=== PATIENT | female | born 1970 | race Caucasian/White ===

== ENCOUNTER → 2017-02-17 | Outpatient (CLI) | payer OTHER ==
[2016-11-19 15:00] VITALS: BP 141/77
--- NOTE | 2017-02-17 13:24 | RAD ---
Bilateral hips, two views each Indication: Bilateral hip pain Comparison: None Technique: There are mild degenerative changes of the hips. No cortical lucency or malalignment is i dentified. Impression: Mild bilateral hip DJD. No evidence for acute skeletal abnormality. Reported By:
--- NOTE | 2017-02-17 13:52 | RAD ---
HISTORY: Low back pain with radiculopathy Study: Five views lumbar spine Comparison: None Findings: Normal alignment of the lumbar spine is maintained. Vertebral body heights are preserved. Multilev el spondylosis with degenerative disc space narrowing is present. There are facet degenerative coyne es noted in the lower lumbar spine without significant listhesis.No evidence for acute fracture or s ubluxation. Surgical clips are noted in the abdomen. IMPRESSION: 1. Multilevel spondylosis and facet arthropathy of the lumbar spine. No acute osseous abnormality. C onsider MRI for further evaluation of radicular symptoms if indicated. Reported By:
== END ==
LOC: RAD 12:37
PROVIDERS: ATTEND Internal Medicine
DX: M54.5 Low back pain (principal); M25.551 Pain in right hip; M25.552 Pain in left hip; M16.11 Unilateral primary osteoarthritis, right hip; M16.12 Unilateral primary osteoarthritis, left hip; M47.896 Other spondylosis, lumbar region
CPT/HCPCS: 72110; 73521

== ENCOUNTER 2017-02-21 14:45 | Emergency (ER) | payer OTHER ==
[2017-02-21 14:57] VITALS: BP 155/86; BMI 33.8
--- NOTE | 2017-02-21 16:26 | ED.ABDFE ---
HPI - Time seen Time seen: 16:20 - PCP Primary Care Physician: ELSI DANG - HPI Comment HPI Comment: 2-3 days of intermittent "catching" upper abd pain which brings her to her knees on occasion; it starts just under the edge of her rib cage and extends into both sides of her upper stomach and resolves spontaneously; unrelated to eating or movement; it has not happened before; she did have a hernia repair in Nov/Dec this year but had done well until now; no n/v/d/rash/ fever/chills. - Complaint Chief Complaint:: PAIN TO UPPER ABD SINCE THIS WEEK. WORSE YESTERDAY AND TODAY. DULL PAIN TO MIDDLE OF PAIN. 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 - Family History History of Family Medical Conditions: Yes Family Medical History: Diabetes Mellitus, Cancer, Hypertension - Social History Type of Tobacco Use: Cigarettes Alcohol Use: None Do you use any recreational Drugs:: No Lives With: Family Lives Where: Home - infectious screening In the last 2 months have you had wt loss of >10#?: NO Have you had fever, night sweats or hemotysis?: No Have you traveled outside the country in the last 6 months?: No Isolation: Standard ROS - Review of Systems Constitutional: No Symptoms Reported Respiratoy: No Symptoms Reported Cardiovascular: No Symptoms Reported Gastrointestinal/Abdominal: See HPI Neurological: No Symptoms Reported Musculoskeletal: No Symptoms Reported Integumentary: No Symptoms Reported Hematologic/Lymphatic: No Symptoms Reported Psychiatric: No Symptoms Reported PE - Vital Signs Vitals: Temperature 98.0 F Pulse Rate 85 Respiratory Rate 16 Blood Pressure [Left Arm] 141/77 Blood Pressure [Standing] 116/69 Blood Pressure [Sitting] 104/62 Blood Pressure [Lying] 116/69 Blood Pressure 155/86 O2 Sat by Pulse Oximetry 100 - General Limitations: No Limitations General Appearance: Alert, In No Apparent Distress - Head Head Exam: Normal Inspection - ENT ENT Exam: Normal Exam - Respiratory Respiratory Exam: Normal Lung Sounds Bilat Respiratory Exam: Bilateral Clear to Auscultation - Cardiovascular Cardiovascular Exam: Regular Rate, Normal Rhythm - Abdominal Exam Abdominal Exam: Normal Inspection, Normal Bowel Sounds, Soft, Tenderness (along edge of lower rib cage bilaterally; no crepitus or rash) - Neurologic Neurological Exam: Alert, Oriented X3 - Skin Skin Exam: Warm - Diagnosis Discharge Problem: Abdominal pain Qualifiers: Abdominal location: epigastric Qualified Code(s): R10.13 - Epigastric pain - Discharge Plan Disposition: HOME, SELF-CARE Condition: Stable - Follow ups/Referrals Follow ups/Referrals: ELSI DANG [Primary Care Provider] - 3 days - Instructions Instructions: Abdominal Pain, Adult
--- NOTE | 2017-02-21 17:11 | RAD ---
Acute abdomen series-three views Indication: Mid epigastric pain for 3 days. Findings: Chest radiograph shows no acute abnormality. There is gas and stool in the colon. There is no free air or pneumatosis. No markedly dilated loop of small bowel identified. 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 cli ps in right abdominal clips noted. No abnormal calcific density seen. Impression: No high-grade obstruction, free air or pneumatosis. Reported By:
== END 2017-02-21 17:30 | disposition home or self-care (01) ==
LOC: ER 14:45
DX: R10.13 Epigastric pain (principal)
CPT/HCPCS: 74022; 99281; 99282

== ENCOUNTER → 2017-03-11 | Outpatient (CLI) | payer OTHER ==
[2017-02-21 14:57] VITALS: BP 155/86
--- NOTE | 2017-03-12 08:43 | MRI ---
HISTORY: Chronic low back pain Study: MRI lumbar spine without contrast Comparison: None Technique: Multiplanar multi-sequence MRI of the lumbar spine was obtained. Sagittal T1, sagittal T 2, and stir weighted images, axial T1, and axial T2 images were obtained. Findings: The lumbar spine demonstrates normal alignment with the expected signal characteristics of the bone marrow. The conus of the cord terminates normally. T12 -- L1: No evidence for compressive disc disease. The neural foramina are patent. The joints are normal. L1 -- L2: No evidence for compressive disc disease. The neural foramina are patent. The joints are n ormal. L2 -- L3: No evidence for compressive disc disease. The neural foramina are patent. The joints are n ormal. L3 -- L4: There is a small not significantly compressive central disc protrusion present. The neural foramina are patent. The joints are normal. L4 -- L5: Mild broad-based disk bulging effaces the thecal sac and contributes to minimal lateral re cess narrowing bilaterally. The joints are normal. L5 -- S1: No evidence for compressive disc disease. The neural foramina are patent. The joints are n ormal. IMPRESSION: As above Reported By:
== END ==
LOC: RAD 14:46
PROVIDERS: ATTEND Internal Medicine
DX: M51.36 Other intervertebral disc degeneration, lumbar region (principal)
CPT/HCPCS: 72148

== ENCOUNTER → 2017-03-18 | Outpatient (CLI) | payer OTHER ==
[2017-02-21 14:57] VITALS: BP 155/86
[2017-03-18 11:28] LABS: BASOPHILS # (AUTO) 0.2 X10^3/uL (0.0-0.1); BASOPHILS % (AUTO) 1.7 % (0.2-1.0); EOSINOPHILS # (AUTO) 0.4 x10^3/uL (0.0-0.2); EOSINOPHILS % (AUTO) 3.7 % (0.9-2.9); HEMATOCRIT 34.3 % (36.0-47.0); HEMOGLOBIN 11.2 g/dL (12.0-16.0); LYMPHOCYTES # (AUTO) 1.9 X10^3/uL (1.3-2.9); LYMPHOCYTES % (AUTO) 19.8 % (21.0-51.0); MEAN CORPUSCULAR HEMOGLOBIN 24.3 pg (27.0-34.0); MEAN CORPUSCULAR HGB CONC 32.6 g/dL (33.0-35.0); MEAN CORPUSCULAR VOLUME 74.7 fL (80.0-100.0); MEAN PLATELET VOLUME 7.7 fL (7.4-11.0); MONOCYTES # (AUTO) 0.6 x10^3/uL (0.3-0.8); MONOCYTES % (AUTO) 6.8 % (0.0-13.0); NEUTROPHILS # (AUTO) 6.5 x10^3/uL (2.2-4.8); PLATELET COUNT 324 X10^3/uL (150.0-450.0); RED BLOOD COUNT 4.59 X10^6/uL (3.5-5.4); RED CELL DISTRIBUTION WIDTH 18.4 % (11.6-16.5); WHITE BLOOD COUNT 9.6 X10^3/uL (3.6-10.0)
[2017-03-18 12:10] LABS: HYPOCHROMASIA SLIGHT; PLATELET MORPHOLOGY COMMENT NORMAL (NORMAL)
[2017-03-18 12:11] LABS: MICROCYTOSIS SLIGHT
[2017-03-18 17:11] LABS: ALANINE AMINOTRANSFERASE 29 Units/L (12-78); ALBUMIN 3.9 g/dL (3.4-5.0); ALKALINE PHOSPHATASE 102 Units/L (46-116); ASPARTATE AMINO TRANSFERASE 27 Units/L (15-37); BLOOD UREA NITROGEN 8 mg/dL (7-18); CALCIUM 9.4 mg/dL (8.5-10.1); CARBON DIOXIDE 26.6 mmol/L (21-32); CHLORIDE 104 mmol/L (98-107); CREATININE 0.76 mg/dL (0.55-1.02); GLUCOSE 98 mg/dL (65-99); SODIUM 141 mmol/L (136-145); TOTAL PROTEIN 7.8 g/dL (6.4-8.2); eGFR BLACK RACES > 60 (>60); eGFR NON BLACK RACES > 60 (>60)
== END ==
LOC: LAB 10:48
PROVIDERS: ATTEND Internal Medicine Medical Oncology
DX: C50.811 Malignant neoplasm of overlapping sites of right female breast (principal); E55.9 Vitamin D deficiency, unspecified
CPT/HCPCS: 36415; 80053; 82306; 85025

== ENCOUNTER → 2017-09-19 | Outpatient (CLI) | payer OTHER ==
[2017-09-19 10:12] LABS: BASOPHILS # (AUTO) 0.1 X10^3/uL (0.0-0.1); BASOPHILS % (AUTO) 1.3 % (0.2-1.0); EOSINOPHILS # (AUTO) 0.5 x10^3/uL (0.0-0.2); HEMATOCRIT 38.1 % (36.0-47.0); HEMOGLOBIN 12.8 g/dL (12.0-16.0); LYMPHOCYTES # (AUTO) 1.9 X10^3/uL (1.3-2.9); LYMPHOCYTES % (AUTO) 21.7 % (21.0-51.0); MEAN CORPUSCULAR HEMOGLOBIN 28.9 pg (27.0-34.0); MEAN CORPUSCULAR HGB CONC 33.6 g/dL (33.0-35.0); MEAN CORPUSCULAR VOLUME 86.1 fL (80.0-100.0); MONOCYTES # (AUTO) 0.6 x10^3/uL (0.3-0.8); MONOCYTES % (AUTO) 6.3 % (0.0-13.0); NEUTROPHILS # (AUTO) 5.6 x10^3/uL (2.2-4.8); NEUTROPHILS % (AUTO) 64.7 % (42.0-75.0); PLATELET COUNT 235 X10^3/uL (150.0-450.0); RED BLOOD COUNT 4.42 X10^6/uL (3.5-5.4); RED CELL DISTRIBUTION WIDTH 14.8 % (11.6-16.5); WHITE BLOOD COUNT 8.7 X10^3/uL (3.6-10.0)
[2017-09-19 10:21] LABS: ALANINE AMINOTRANSFERASE 20 Units/L (12-78); ALBUMIN 3.7 g/dL (3.4-5.0); ALKALINE PHOSPHATASE 104 Units/L (46-116); ASPARTATE AMINO TRANSFERASE 21 Units/L (15-37); BLOOD UREA NITROGEN 9 mg/dL (7-18); CALCIUM 9.6 mg/dL (8.5-10.1); CARBON DIOXIDE 27.2 mmol/L (21-32); CHLORIDE 105 mmol/L (98-107); CREATININE 0.74 mg/dL (0.55-1.02); SODIUM 139 mmol/L (136-145); TOTAL PROTEIN 7.2 g/dL (6.4-8.2); eGFR BLACK RACES > 60 (>60); eGFR NON BLACK RACES > 60 (>60)
== END ==
LOC: LAB 09:48
PROVIDERS: ATTEND Internal Medicine Medical Oncology
DX: C50.511 Malignant neoplasm of lower-outer quadrant of right female breast (principal); E55.9 Vitamin D deficiency, unspecified
CPT/HCPCS: 36415; 80053; 82306; 85025

== ENCOUNTER → 2017-12-01 | Outpatient (CLI) | payer OTHER ==
[2017-12-01 11:34] LABS: BASOPHILS % (AUTO) 0.1 % (0.2-1.0); EOSINOPHILS # (AUTO) 0.5 x10^3/uL (0.0-0.2); EOSINOPHILS % (AUTO) 5.3 % (0.9-2.9); HEMATOCRIT 41.6 % (36.0-47.0); HEMOGLOBIN 13.8 g/dL (12.0-16.0); LYMPHOCYTES # (AUTO) 2.1 X10^3/uL (1.3-2.9); LYMPHOCYTES % (AUTO) 24.3 % (21.0-51.0); MEAN CORPUSCULAR HEMOGLOBIN 27.7 pg (27.0-34.0); MEAN CORPUSCULAR HGB CONC 33.2 g/dL (33.0-35.0); MEAN CORPUSCULAR VOLUME 83.5 fL (80.0-100.0); MEAN PLATELET VOLUME 8.1 fL (7.4-11.0); MONOCYTES # (AUTO) 0.5 x10^3/uL (0.3-0.8); NEUTROPHILS # (AUTO) 5.6 x10^3/uL (2.2-4.8); NEUTROPHILS % (AUTO) 64.3 % (42.0-75.0); PLATELET COUNT 313 X10^3/uL (150.0-450.0); RED BLOOD COUNT 4.97 X10^6/uL (3.5-5.4); RED CELL DISTRIBUTION WIDTH 15.1 % (11.6-16.5); WHITE BLOOD COUNT 8.8 X10^3/uL (3.6-10.0)
[2017-12-01 12:07] LABS: ALANINE AMINOTRANSFERASE 22 Units/L (12-78); ALKALINE PHOSPHATASE 111 Units/L (46-116); ASPARTATE AMINO TRANSFERASE 29 Units/L (15-37); BILIRUBIN,DIRECT < 0.05 mg/dL (0-0.2); BLOOD UREA NITROGEN 10 mg/dL (7-18); CALCIUM 9.4 mg/dL (8.5-10.1); CARBON DIOXIDE 27.5 mmol/L (21-32); CHLORIDE 102 mmol/L (98-107); SODIUM 140 mmol/L (136-145); TOTAL PROTEIN 7.5 g/dL (6.4-8.2); eGFR BLACK RACES > 60 (>60); eGFR NON BLACK RACES > 60 (>60)
== END ==
LOC: LAB 10:53
DX: C50.811 Malignant neoplasm of overlapping sites of right female breast (principal); E55.9 Vitamin D deficiency, unspecified
CPT/HCPCS: 36415; 80048; 80076; 82306; 85025

== ENCOUNTER 2017-12-27 11:47 | Emergency (ER) | payer OTHER ==
[2017-12-27 11:56] VITALS: BP 109/63; BMI 36.6
[2017-12-27] MEDS ORDERED: ZOFRAN INJ 4 MG VIAL IVP ONE (13:24)
[2017-12-27] MEDS ORDERED: NS 1000 ML 1,000 ML IV ONE (13:25)
[2017-12-27] MEDS ORDERED: TORADOL 30 MG VIAL IVP ONE (13:25)
--- NOTE | 2017-12-27 13:28 | ED.ABDFE ---
HPI - Time seen Time seen: 13:25 - PCP Primary Care Physician: ELSI DANG - Complaint Chief Complaint Doctors Comments: Patient is complaining of LLQ pain, nausea with cold sweats for the past three days getting worst today. States the pain is worst when she move her leg or hip or walks. She denies diarrhea, dysuria, hematuria, cold, cough, fever or chills. she denies any recent truama. States she has not been able to keep anything down today and has no appetite. Chief Complaint:: PT C/O LEFT LOWER QUAD PAIN WITH NAUSEA AND COLD SWEATS. PT ALSO C/O LIGHT HEADINESS AND A HEADACHE. - Nurses notes reviewed Nurses Notes Review: Yes - Source History Provided: Patient - Mode of arrival Mode of Arrival: Ambulatory - Timing Onset of Chief Complaint: 01/01/18 Came on: Gradually - Duration Duration: Constant How lon Duration: Days - Location Location: LLQ, Suprapubic - Severity Severity: Moderate - Quality Quality: Aching, Cramping, Sharp - Context Onset: Suddenly, On Exertion, At Rest History of: None - Modifying Worsening Factors: Exertion, Position, Movement Improving Factors: Nothing - Associated signs and symptoms Associated Signs and Symptoms: Nausea, Vomiting PMH - PMH Past Medical History: Yes Past Medical History: PUD Past Medical History Comment: BREAST CA Past Surgical History: Yes Surgical History: 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, 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, 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, 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 - Family History History of Family Medical Conditions: Yes Family Medical History: Diabetes Mellitus, Cancer, Hypertension - Social History Type of Tobacco Use: Cigarettes Alcohol Use: None Do you use any recreational Drugs:: No Lives With: Family Lives Where: Home - infectious screening In the last 2 months have you had wt loss of >10#?: NO Have you had fever, night sweats or hemotysis?: No Have you traveled outside the country in the last 6 months?: No Isolation: Standard ROS - Review of Systems Constitutional: No Symptoms Reported, Fever, Weakness, Loss of Appetite Eyes: No Symptoms Reported. negative: See HPI, Eye Pain, Blurred Vision, Tearing, Discharge, Photophobia, Diplopia, Other ENTM: No Symptoms Reported Respiratoy: No Symptoms Reported Cardiovascular: No Symptoms Reported Gastrointestinal/Abdominal: No Symptoms Reported, Abdominal Pain, Nausea, Vomiting Genitourinary: No Symptoms Reported. negative: See HPI, Discharge, Dysuria, Frequency, Hematuria, Pain, Bleeding, Other Neurological: No Symptoms Reported Musculoskeletal: No Symptoms Reported Integumentary: No Symptoms Reported Hematologic/Lymphatic: No Symptoms Reported Endocrine: No Symptoms Reported Psychiatric: No Symptoms Reported PE - Vital Signs Vitals: Temperature 97.0 F Pulse Rate 92 Respiratory Rate 20 Blood Pressure [Left Arm] 141/77 Blood Pressure [Standing] 116/69 Blood Pressure [Sitting] 104/62 Blood Pressure [Lying] 116/69 Blood Pressure 109/63 O2 Sat by Pulse Oximetry 98 - General Limitations: No Limitations General Appearance: Alert, In Distress (moderate) - Head Head Exam: Normal Inspection, Atraumatic, Normocephalic - Eyes Eye exam: Normal Appearance, PERRL, EOMI. negative: Scleral Icterus, Conjunctival Injection, Nystagmus, Miosis, Mydrasis, Periorbital Swelling, Periorbital Tenderness, Other - ENT ENT Exam: Normal Exam, Normal Oropharynx, Normal External Ear Exam, Mucous Membranes Moist, TM's Normal Bilaterally - Neck Neck Exam: Normal Inspection, Full ROM, Trachea Midline - Chest Chest Inspection: Normal Inspection, Symmetric Chest Wall Rise - Respiratory Respiratory Exam: Normal Lung Sounds Bilat Respiratory Exam: Bilateral Clear to Auscultation - Cardiovascular Cardiovascular Exam: Regular Rate, Normal Rhythm, Normal Heart Sounds - Abdominal Exam Abdominal Exam: Normal Inspection, Normal Bowel Sounds, Soft, Tenderness (LLQ, suprapubic tenderness), Guarding, Dimnished Bowel Sounds Abdominal Tenderness: LLQ, Suprapubic, Moderate - Rectal Rectal Exam: Deferred - Back Back Exam: Normal Inspection, Full ROM. negative: Tenderness, (R) CVA Tenderness, (L) CVA Tenderness, Muscle Spasm, Paraspinal Tenderness, Vertebral Tenderness, Rashes, (R) Sciatic Notch Tenderness, (L) Sciatic Notch Tendern, (R ) Straight Leg Raise, (L) Straight Leg Raise, Other - Extremeties Extremities Exam: Normal Inspection, Full ROM, Normal Capillary Refill. negative: Tenderness, Edema, Joint Swelling, Calf Tenderness, Other - External Exam: Female: Deferred : Speculum Exam (Female): Deferred : Bimanual Exam (female): Deferred - Neurologic Neurological Exam: Alert, Oriented X3, CN II-XII Intact, Reflexes Normal. negative: Normal Gait (gait not tested) - Psychiatric Psychiatric Exam: Normal Affect, Normal Mood - Skin Skin Exam: Warm, Dry, Intact, Normal Color ROR - Labs Reviewed Laboratory Results Reviewed?: Yes (all labs and x-ray results reviewed and discussed with patient) Result Diagrams: 12/27/17 13:35 12/27/17 13:35 Laboratory: WBC 11.4 X10^3/uL (3.6-10.0) H 12/27/17 13:35 RBC 4.31 X10^6/uL (3.5-5.4) 12/27/17 13:35 Hgb 11.8 g/dL (12.0-16.0) L 12/27/17 13:35 Hct 35.0 % (36.0-47.0) L 12/27/17 13:35 MCV 81.2 fL (80.0-100.0) 12/27/17 13:35 MCH 27.3 pg (27.0-34.0) 12/27/17 13:35 MCHC 33.6 g/dL (33.0-35.0) 12/27/17 13:35 RDW 15.0 % (11.6-16.5) 12/27/17 13:35 Plt Count 289 X10^3/uL (150.0-450.0) 12/27/17 13:35 MPV 7.9 fL (7.4-11.0) 12/27/17 13:35 Neut % 73.7 % (42.0-75.0) 12/27/17 13:35 Lymph % 16.3 % (21.0-51.0) L 12/27/17 13:35 [place] % 6.3 % (0.0-13.0) 12/27/17 13:35 Eos % 2.4 % (0.9-2.9) 12/27/17 13:35 Baso % 1.3 % (0.2-1.0) H 12/27/17 13:35 Neut # 8.4 x10^3/uL (2.2-4.8) H 12/27/17 13:35 Lymph # 1.9 X10^3/uL (1.3-2.9) 12/27/17 13:35 [place] # 0.7 x10^3/uL (0.3-0.8) 12/27/17 13:35 Eos # 0.3 x10^3/uL (0.0-0.2) H 12/27/17 13:35 Baso # 0.1 X10^3/uL (0.0-0.1) 12/27/17 13:35 Absolute Nucleated RBC 0.0 /100WBC 12/27/17 13:35 Sodium 138 mmol/L (136-145) 12/27/17 13:35 Corrected Sodium TNP 12/27/17 13:35 Potassium 3.5 mmol/L (3.5-5.1) 12/27/17 13:35 Chloride 102 mmol/L (98-107) 12/27/17 13:35 Carbon Dioxide 27.6 mmol/L (21-32) 12/27/17 13:35 BUN 11 mg/dL (7-18) 12/27/17 13:35 Creatinine 0.81 mg/dL (0.55-1.02) 12/27/17 13:35 Est GFR (MDRD) Af Amer > 60 (>60) 12/27/17 13:35 Est GFR (MDRD) Non-Af > 60 (>60) 12/27/17 13:35 Glucose 105 mg/dL (65-99) H 12/27/17 13:35 Calcium 9.1 mg/dL (8.5-10.1) 12/27/17 13:35 Corrected Calcium TNP 12/27/17 13:35 Total Bilirubin 0.20 mg/dL (0.2-1.0) 12/27/17 13:35 AST 16 Units/L (15-37) 12/27/17 13:35 ALT 18 Units/L (12-78) 12/27/17 13:35 Alkaline Phosphatase 96 Units/L (46-116) 12/27/17 13:35 Total Protein 7.4 g/dL (6.4-8.2) 12/27/17 13:35 Albumin 3.4 g/dL (3.4-5.0) 12/27/17 13:35 Globulin 4.0 g/dL (2.5-4.5) 12/27/17 13:35 Albumin/Globulin Ratio 0.9 Ratio (1.1-2.1) L 12/27/17 13:35 Amylase 17 Units/L (25-115) L 12/27/17 13:35 Lipase 119 Units/L (73-393) 12/27/17 13:35 Specimen Type Clean catch urine 12/27/17 15:21 Urine Color Yellow (YELLOW) 12/27/17 15:21 Urine Appearance Clear (CLEAR) 12/27/17 15:21 Urine pH 7.0 (5.0 - 8.0) 12/27/17 15:21 Ur Specific [place] 1.005 (1.000-1.030) 12/27/17 15:21 Urine Protein Negative (NEGATIVE) 12/27/17 15:21 Urine Glucose (UA) Negative (NEGATIVE) 12/27/17 15:21 Urine Ketones Negative (NEGATIVE) 12/27/17 15:21 Urine Occult Blood Negative (NEGATIVE) 12/27/17 15:21 Urine Nitrite Negative (NEGATIVE) 12/27/17 15:21 Urine Bilirubin Negative (NEGATIVE) 12/27/17 15:21 Urine Urobilinogen Normal (NORMAL) 12/27/17 15:21 Ur Leukocyte Esterase Negative (NEGATIVE) 12/27/17 15:21 Urine RBC 0 /HPF (NEGATIVE) 12/27/17 15:21 Urine WBC 0 /HPF (NEGATIVE) 12/27/17 15:21 Ur Squamous Epith Cells Negative /HPF (NEGATIVE) 12/27/17 15:21 Urine Bacteria Negative /HPF (NEGATIVE) 12/27/17 15:21 Ur Culture Indicated? No/not indicated 12/27/17 15:21 - XRAY XRAY Interpreted by: Radiologist (CT abdomen: Uncomplicated acute sigmoid diverticulitis) - Diagnosis Discharge Problem: Diverticulitis, Diverticulosis of colon - Discharge Plan Disposition: 01 HOME, SELF-CARE Condition: Stable Prescriptions: Ciprofloxacin HCl [CIPRO 500 MG TAB *] 500 mg PO Q12H #20 tab Metronidazole [Flagyl Tab 500 mg] 500 mg PO QID PRN #40 tab PRN Reason: Ondansetron [Zofran Odt] 4 mg PO Q8H PRN #12 tab PRN Reason: Nausea/Vomiting - Follow ups/Referrals Follow ups/Referrals: ELSI DANG [Primary Care Provider] - 3 days - Instructions Instructions: Diverticulitis, [id number], Diverticulosis
[2017-12-27] MEDS ORDERED: NS 1000 ML 1,000 ML ONE (13:29)
[2017-12-27] MEDS ORDERED: ZOFRAN INJ 4 MG VIAL ONE (13:29)
[2017-12-27] MEDS ORDERED: TORADOL 30 MG VIAL ONE (13:30)
[2017-12-27 13:47] LABS: BASOPHILS # (AUTO) 0.1 X10^3/uL (0.0-0.1); BASOPHILS % (AUTO) 1.3 % (0.2-1.0); EOSINOPHILS # (AUTO) 0.3 x10^3/uL (0.0-0.2); EOSINOPHILS % (AUTO) 2.4 % (0.9-2.9); HEMOGLOBIN 11.8 g/dL (12.0-16.0); LYMPHOCYTES # (AUTO) 1.9 X10^3/uL (1.3-2.9); LYMPHOCYTES % (AUTO) 16.3 % (21.0-51.0); MEAN CORPUSCULAR HEMOGLOBIN 27.3 pg (27.0-34.0); MEAN CORPUSCULAR HGB CONC 33.6 g/dL (33.0-35.0); MEAN CORPUSCULAR VOLUME 81.2 fL (80.0-100.0); MEAN PLATELET VOLUME 7.9 fL (7.4-11.0); MONOCYTES # (AUTO) 0.7 x10^3/uL (0.3-0.8); MONOCYTES % (AUTO) 6.3 % (0.0-13.0); NEUTROPHILS # (AUTO) 8.4 x10^3/uL (2.2-4.8); NEUTROPHILS % (AUTO) 73.7 % (42.0-75.0); PLATELET COUNT 289 X10^3/uL (150.0-450.0); RED BLOOD COUNT 4.31 X10^6/uL (3.5-5.4); WHITE BLOOD COUNT 11.4 X10^3/uL (3.6-10.0)
[2017-12-27 14:04] LABS: ALANINE AMINOTRANSFERASE 18 Units/L (12-78); ALBUMIN 3.4 g/dL (3.4-5.0); ALKALINE PHOSPHATASE 96 Units/L (46-116); AMYLASE 17 Units/L (25-115); ASPARTATE AMINO TRANSFERASE 16 Units/L (15-37); BLOOD UREA NITROGEN 11 mg/dL (7-18); CALCIUM 9.1 mg/dL (8.5-10.1); CARBON DIOXIDE 27.6 mmol/L (21-32); CHLORIDE 102 mmol/L (98-107); CREATININE 0.81 mg/dL (0.55-1.02); LIPASE 119 Units/L (73-393); SODIUM 138 mmol/L (136-145); TOTAL PROTEIN 7.4 g/dL (6.4-8.2); eGFR BLACK RACES > 60 (>60); eGFR NON BLACK RACES > 60 (>60)
--- NOTE | 2017-12-27 14:17 | CT ---
HISTORY: Left lower quadrant abdominal pain with nausea and cold sweats. Study: CT abdomen and pelvis without contrast. Comparison: 12/31/2016. Technique: Multiple axial images of the abdomen and pelvis were obtained from the lung bases to the p ubic symphysis without the administration of IV contrast. Findings: The included portions of the lung bases are clear. The gallbladder is surgically absent. Th e liver, pancreas, spleen, adrenal glands and kidneys are unremarkable in their CT appearance. There are no calcified stones along the course of either ureter or within the lumen of the well distended u rinary bladder. The appendix is surgically absent. There is sigmoid diverticulosis with scattered div erticula noted throughout the colon. There is focal wall thickening and pericolonic stranding of the sigmoid colon compatible with acute uncomplicated diverticulitis. There is no organized or drainable fluid collection. There is no gross intraperitoneal free air. Are postsurgical changes in the region of the rectum. There is no small bowel dilatation. Prior anterior abdominal wall hernia repair is not ed with mesh material in place. The uterus is present. There is atherosclerotic disease of the nonane urysmal abdominal aorta. The bony structures are grossly unremarkable. IMPRESSION: Uncomplicated acute sigmoid diverticulitis. Reported By:
[2017-12-27 15:32] LABS: BILIRUBIN,URINE NEGATIVE (NEGATIVE); BLOOD/HEMOGLOBIN,URINE NEGATIVE (NEGATIVE); GLUCOSE, URINE NEGATIVE (NEGATIVE); KETONES,URINE NEGATIVE (NEGATIVE); LEUKOCYTE ESTERASE ,URINE NEGATIVE (NEGATIVE); NITRITES,URINE NEGATIVE (NEGATIVE); PROTEIN,URINE NEGATIVE (NEGATIVE); UROBILINOGEN,URINE NORMAL (NORMAL)
[2017-12-27 15:36] LABS: APPEARANCE,URINE CLEAR (CLEAR); BACTERIA,URINE NEGATIVE /HPF (NEGATIVE); COLOR,URINE YELLOW (YELLOW); RBC,URINE 0 /HPF (NEGATIVE); SQUAMOUS EPITHELIAL CELL,UR NEGATIVE /HPF (NEGATIVE)
[2017-12-27] MEDS ORDERED: LEVAQUIN PREMIX IV 500 MG 500 MG/100 ML BAG IV ONE ×2 (16:03→16:38)
== END 2017-12-27 18:00 | disposition home or self-care (01) ==
LOC: ER 11:59
DX: K57.92 Diverticulitis of intestine, part unspecified, without perforation or abscess without bleeding (principal); K57.30 Diverticulosis of large intestine without perforation or abscess without bleeding
CPT/HCPCS: 36415; 74176; 80053; 81001; 82150; 83690; 85025; 96365; 96374; 96375; 99282; 99283; A4216; A4222; J1885; J1956; J2405

== ENCOUNTER 2018-01-24 08:17 | Emergency (ER) | payer OTHER ==
[2018-01-24 08:22] VITALS: BP 131/73; BMI 36.6
[2018-01-24] MEDS ORDERED: TORADOL 60 MG VIAL IM ONE (08:52)
[2018-01-24 08:53] LABS: BILIRUBIN,URINE NEGATIVE (NEGATIVE); BLOOD/HEMOGLOBIN,URINE 1+ (NEGATIVE); GLUCOSE, URINE NEGATIVE (NEGATIVE); KETONES,URINE NEGATIVE (NEGATIVE); LEUKOCYTE ESTERASE ,URINE 1+ (NEGATIVE); NITRITES,URINE NEGATIVE (NEGATIVE); PROTEIN,URINE NEGATIVE (NEGATIVE); UROBILINOGEN,URINE NORMAL (NORMAL)
--- NOTE | 2018-01-24 08:56 | DR.GENAD ---
HPI - PCP Primary Care Physician: ELSI DANG - Complaint/Symptoms Chief Complaint Doctors Comments: Patient states she has a history of diverticulitis and thinks it has flared up on her. States she took her last dose of Cipro and Flagyl today. States she has been hurting for about a week and went to see her doctor and she scheduled her for a scan but she did not get the request and never had the scan done. States she has been having dysuria for the past three days but denies hematuria, diarrhea or eliecer. States the pain is 9 of 10 and is worst when she urinates or moves. she denies any recent trauma. States she hs been nauseated but no vomiting. Chief Complaint:: PATIENT STATED THAT SHE HAS BEEN HAVING ABD. PAIN SINCE AROUND 2-3 DAYS AGO. SHE STATED THAT SHE HAS BEEN ON ANTIBOTICS. - Nurses notes reviewed Nurses Notes Review: Yes - Source History Provided: Patient - Mode of Arrival Mode of Arrival: Ambulatory - Timing Onset of Chief Complaint: 01/21/18 Came on: Gradually - Duration Duration: Intermittent How lon Duration: Days - Location Location: lower abdominal pain - Severity Severity: Moderate - Modifying Factors Worsens:: movement and urination Improves:: nothing PMH - PMH Past Medical History: Yes Past Medical History: PUD Past Surgical History: Yes Surgical History: 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, 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, RELINER Surgery, 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 - Family History History of Family Medical Conditions: Yes Family Medical History: Diabetes Mellitus, Cancer, Hypertension - Social History Does patient currently use any type of tobacco product: Yes Have you used tobacco products in the last 12 months: Yes Type of Tobacco Use: Cigarettes Does any household member use tobacco: Yes Alcohol Use: None Do you use any recreational Drugs:: No Lives With: Family Lives Where: Home - infectious screening In the last 2 months have you had wt loss of >10#?: NO Have you had fever, night sweats or hemotysis?: No Have you traveled outside the country in the last 6 months?: No Isolation: Standard ROS - Review of Systems Constitutional: No Symptoms Reported. negative: See HPI, Chills, Diaphoresis, Fever, Malaise, Weakness, Irritable, Fatigue, Loss of Appetite, Other Eyes: No Symptoms Reported ENTM: No Symptoms Reported Respiratoy: No Symptoms Reported. negative: See HPI, Productive Cough, Non- Productive Cough, Moist Cough, Dry Cough, Hacking Cough, Barking Cough, Brassy Cough, Orthopnea, Short of Breath, Stridor, Wheezing, Hemoptysis, Other Cardiovascular: No Symptoms Reported. negative: See HPI, Chest Pain, Edema, Palpitations, Syncope, Cyanosis, Skin Mottling, Other Gastrointestinal/Abdominal: No Symptoms Reported, Abdominal Pain, Nausea. negative: See HPI, Constipation, Diarrhea, Vomiting, Food Intolerance, Other Genitourinary: No Symptoms Reported, Dysuria. negative: See HPI, Discharge, Frequency, Hematuria, Pain, Bleeding, Other Neurological: No Symptoms Reported. negative: See HPI, Anxiety, Depressed, Emotional Problems, Headache, Numbness, Paresthesia, Pre-existing Deficit, Seizure, Tingling, Tremors, Weakness, Dizziness, Problems Walking, Speech Problem, Other Musculoskeletal: No Symptoms Reported Integumentary: No Symptoms Reported. negative: See HPI, Change in Color, Change in Hair/Nails, Dryness, Lesions, Lumps, Rash, Itching, Wound, Bruises, Juandice, Other Hematologic/Lymphatic: No Symptoms Reported. negative: See HPI, Anemia, Blood Clots, Easy Bleeding, Easy Bruising, Swollen Glands, Lymphadenopathy, Other Endocrine: No Symptoms Reported Psychiatric: No Symptoms Reported. negative: See HPI, Anxiety, Depression, Hallucinations, Excessive crying, Suicidal, Other PE - Vital Signs Vitals: Temperature 98.3 F Pulse Rate 92 Respiratory Rate 20 Blood Pressure [Left Arm] 141/77 Blood Pressure [Standing] 116/69 Blood Pressure [Sitting] 104/62 Blood Pressure [Lying] 116/69 Blood Pressure 131/73 O2 Sat by Pulse Oximetry 100 - General Limitations: No Limitations General Appearance: Alert, In Distress (moderate) - Head Head Exam: Normal Inspection, Atraumatic, Normocephalic - Eyes Eye exam: Normal Appearance, PERRL, EOMI. negative: Scleral Icterus, Conjunctival Injection, Nystagmus, Miosis, Mydrasis, Periorbital Swelling, Periorbital Tenderness, Other - ENT ENT Exam: Normal Exam, Normal Oropharynx, Normal External Ear Exam, Mucous Membranes Moist, TM's Normal Bilaterally External Ear Exam: Normal External Inspection TM/Canal Exam: Bilateral Normal Nose Exam: Normal Nose Exam Mouth Exam: Normal Inspection. negative: Drooling, Trismus, Lip Swelling, Tongue Elevation, Tongue Swelling, Laceration, Other Throat Exam: Normal Inspection. negative: Tonsillar Erythema, Tonsillomegaly, Tonsillar Exudate, R Peritonsillar Mass, L Peritonsillar Mass, Muffled Voice, Other - Neck Neck Exam: Normal Inspection, Full ROM, Trachea Midline. negative: Tenderness, Meningismus, Lymphadenopathy, Thyromegaly, Other - Chest Chest Inspection: Normal Inspection, Symmetric Chest Wall Rise. negative: Tenderness, Rash, Abscess, Other - Respiratory Respiratory Exam: Normal Lung Sounds Bilat Respiratory Exam: Bilateral Clear to Auscultation - Cardiovascular Cardiovascular Exam: Regular Rate, Normal Rhythm, Normal Heart Sounds - Abdominal Exam Abdominal Exam: Normal Inspection, Normal Bowel Sounds, Soft, Tenderness ( suprapubic and LLQ tendernesswith guarding), Guarding, Dimnished Bowel Sounds Abdominal Tenderness: LLQ, Suprapubic, Moderate - Extremities Extremities Exam: Normal Inspection, Full ROM, Normal Capillary Refill. negative: Tenderness, Edema, Joint Swelling, Calf Tenderness, Other - Back Back Exam: Normal Inspection, Full ROM. negative: Tenderness, (R) CVA Tenderness, (L) CVA Tenderness, Muscle Spasm, Paraspinal Tenderness, Vertebral Tenderness, Rashes, (R) Sciatic Notch Tenderness, (L) Sciatic Notch Tendern, (R ) Straight Leg Raise, (L) Straight Leg Raise, Other - Neurologic Neurological Exam: Alert, Oriented X3, CN II-XII Intact, Normal Gait, Reflexes Normal - Psychiatric Psychiatric Exam: Normal Affect, Normal Mood - Skin Skin Exam: Warm, Dry, Intact, Normal Color. negative: Rash, Cyanosis, Diaphoresis, Erythema, Pallor, Mottled, Other ROR - Labs Reviewed Laboratory Results Reviewed?: Yes (All labs and x-ray results reviewed and discussed with patient) Result Diagrams: 01/24/18 09:00 01/24/18 09:00 Laboratory: WBC 10.5 X10^3/uL (3.6-10.0) H 01/24/18 09:00 RBC 4.67 X10^6/uL (3.5-5.4) 01/24/18 09:00 Hgb 12.5 g/dL (12.0-16.0) 01/24/18 09:00 Hct 37.3 % (36.0-47.0) 01/24/18 09:00 MCV 79.9 fL (80.0-100.0) L 01/24/18 09:00 MCH 26.7 pg (27.0-34.0) L 01/24/18 09:00 MCHC 33.4 g/dL (33.0-35.0) 01/24/18 09:00 RDW 15.5 % (11.6-16.5) 01/24/18 09:00 Plt Count 302 X10^3/uL (150.0-450.0) 01/24/18 09:00 MPV 7.8 fL (7.4-11.0) 01/24/18 09:00 Neut % 68.8 % (42.0-75.0) 01/24/18 09:00 Lymph % 18.0 % (21.0-51.0) L 01/24/18 09:00 Quay % 7.1 % (0.0-13.0) 01/24/18 09:00 Eos % 4.4 % (0.9-2.9) H 01/24/18 09:00 Baso % 1.7 % (0.2-1.0) H 01/24/18 09:00 Neut # 7.2 x10^3/uL (2.2-4.8) H 01/24/18 09:00 Lymph # 1.9 X10^3/uL (1.3-2.9) 01/24/18 09:00 Quay # 0.7 x10^3/uL (0.3-0.8) 01/24/18 09:00 Eos # 0.5 x10^3/uL (0.0-0.2) H 01/24/18 09:00 Baso # 0.2 X10^3/uL (0.0-0.1) H 01/24/18 09:00 Absolute Nucleated RBC 0.0 /100WBC 01/24/18 09:00 Sodium 141 mmol/L (136-145) 01/24/18 09:00 Corrected Sodium TNP 01/24/18 09:00 Potassium 4.0 mmol/L (3.5-5.1) 01/24/18 09:00 Chloride 104 mmol/L (98-107) 01/24/18 09:00 Carbon Dioxide 28.2 mmol/L (21-32) 01/24/18 09:00 BUN 7 mg/dL (7-18) 01/24/18 09:00 Creatinine 0.85 mg/dL (0.55-1.02) 01/24/18 09:00 Est GFR (MDRD) Af Amer > 60 (>60) 01/24/18 09:00 Est GFR (MDRD) Non-Af > 60 (>60) 01/24/18 09:00 Glucose 93 mg/dL (65-99) 01/24/18 09:00 Calcium 8.6 mg/dL (8.5-10.1) 01/24/18 09:00 Corrected Calcium TNP 01/24/18 09:00 Total Bilirubin 0.20 mg/dL (0.2-1.0) 01/24/18 09:00 AST 16 Units/L (15-37) 01/24/18 09:00 ALT 17 Units/L (12-78) 01/24/18 09:00 Alkaline Phosphatase 111 Units/L (46-116) 01/24/18 09:00 Total Protein 7.5 g/dL (6.4-8.2) 01/24/18 09:00 Albumin 3.7 g/dL (3.4-5.0) 01/24/18 09:00 Globulin 3.8 g/dL (2.5-4.5) 01/24/18 09:00 Albumin/Globulin Ratio 1.0 Ratio (1.1-2.1) L 01/24/18 09:00 Amylase 18 Units/L (25-115) L 01/24/18 09:00 Lipase 106 Units/L (73-393) 01/24/18 09:00 Specimen Type Clean catch urine 01/24/18 08:39 Urine Color Yellow (YELLOW) 01/24/18 08:39 Urine Appearance Clear (CLEAR) 01/24/18 08:39 Urine pH 6.0 (5.0 - 8.0) 01/24/18 08:39 Ur Specific [place] 1.010 (1.000-1.030) 01/24/18 08:39 Urine Protein Negative (NEGATIVE) 01/24/18 08:39 Urine Glucose (UA) Negative (NEGATIVE) 01/24/18 08:39 Urine Ketones Negative (NEGATIVE) 01/24/18 08:39 Urine Occult Blood 1+ (NEGATIVE) 01/24/18 08:39 Urine Nitrite Negative (NEGATIVE) 01/24/18 08:39 Urine Bilirubin Negative (NEGATIVE) 01/24/18 08:39 Urine Urobilinogen Normal (NORMAL) 01/24/18 08:39 Ur Leukocyte Esterase 1+ (NEGATIVE) 01/24/18 08:39 Urine RBC Rare /HPF (NONE SEEN) 01/24/18 08:39 Urine WBC Rare /HPF (NONE SEEN) 01/24/18 08:39 Ur Squamous Epith Cells Moderate /HPF (NEGATIVE) 01/24/18 08:39 Amorphous Sediment Trace /HPF (NEGATIVE) 01/24/18 08:39 Urine Bacteria Trace /HPF (NEGATIVE) 01/24/18 08:39 Ur Culture Indicated? No/not indicated 01/24/18 08:39 - XRAY XRAY Interpreted by: Radiologist (CT abdomen and pelvis: Mild diverticulitis along the proximal and mid sigmoid colon less prominent from prior study.) - Diagnosis Discharge Problem: Diverticulitis of colon Abdominal pain Qualifiers: Abdominal location: left upper quadrant Qualified Code(s): R10.12 - Left upper quadrant pain - Discharge Plan Disposition: 01 HOME, SELF-CARE Condition: Stable Prescriptions: Ciprofloxacin HCl [CIPRO 500 MG TAB *] 500 mg PO Q12H #20 tab Ibuprofen [MOTRIN TAB 800 MG *] 800 mg PO BID PRN #40 tab PRN Reason: Pain/Inflammation Metronidazole [Flagyl Tab 500 mg] 500 mg PO QID PRN #1 tab PRN Reason: - Follow ups/Referrals Follow ups/Referrals: ELSI DANG [Primary Care Provider] - 3 days - Instructions Instructions: Diverticulitis, [id number], Low-Fiber Diet
[2018-01-24 08:57] LABS: APPEARANCE,URINE CLEAR (CLEAR); COLOR,URINE YELLOW (YELLOW)
[2018-01-24] MEDS ORDERED: TORADOL 60 MG VIAL ONE (08:57)
[2018-01-24 09:02] LABS: AMORPHOUS SEDIMENT,UR TRACE /HPF (NEGATIVE); BACTERIA,URINE TRACE /HPF (NEGATIVE); RBC,URINE RARE /HPF (NONE SEEN); SQUAMOUS EPITHELIAL CELL,UR MODERATE /HPF (NEGATIVE)
[2018-01-24 09:08] LABS: BASOPHILS # (AUTO) 0.2 X10^3/uL (0.0-0.1); BASOPHILS % (AUTO) 1.7 % (0.2-1.0); EOSINOPHILS # (AUTO) 0.5 x10^3/uL (0.0-0.2); EOSINOPHILS % (AUTO) 4.4 % (0.9-2.9); HEMATOCRIT 37.3 % (36.0-47.0); HEMOGLOBIN 12.5 g/dL (12.0-16.0); LYMPHOCYTES # (AUTO) 1.9 X10^3/uL (1.3-2.9); MEAN CORPUSCULAR HEMOGLOBIN 26.7 pg (27.0-34.0); MEAN CORPUSCULAR HGB CONC 33.4 g/dL (33.0-35.0); MEAN CORPUSCULAR VOLUME 79.9 fL (80.0-100.0); MEAN PLATELET VOLUME 7.8 fL (7.4-11.0); MONOCYTES # (AUTO) 0.7 x10^3/uL (0.3-0.8); MONOCYTES % (AUTO) 7.1 % (0.0-13.0); NEUTROPHILS # (AUTO) 7.2 x10^3/uL (2.2-4.8); NEUTROPHILS % (AUTO) 68.8 % (42.0-75.0); PLATELET COUNT 302 X10^3/uL (150.0-450.0); RED BLOOD COUNT 4.67 X10^6/uL (3.5-5.4); RED CELL DISTRIBUTION WIDTH 15.5 % (11.6-16.5); WHITE BLOOD COUNT 10.5 X10^3/uL (3.6-10.0)
[2018-01-24 09:19] LABS: ALANINE AMINOTRANSFERASE 17 Units/L (12-78); ALBUMIN 3.7 g/dL (3.4-5.0); ALKALINE PHOSPHATASE 111 Units/L (46-116); AMYLASE 18 Units/L (25-115); ASPARTATE AMINO TRANSFERASE 16 Units/L (15-37); BLOOD UREA NITROGEN 7 mg/dL (7-18); CALCIUM 8.6 mg/dL (8.5-10.1); CARBON DIOXIDE 28.2 mmol/L (21-32); CHLORIDE 104 mmol/L (98-107); CREATININE 0.85 mg/dL (0.55-1.02); LIPASE 106 Units/L (73-393); SODIUM 141 mmol/L (136-145); TOTAL PROTEIN 7.5 g/dL (6.4-8.2); eGFR BLACK RACES > 60 (>60); eGFR NON BLACK RACES > 60 (>60)
--- NOTE | 2018-01-24 10:09 | CT ---
Indication: Pain Exam: CT abdomen and pelvis without contrast. Technique: Axial spiral images were obtained from lung bases through the pubic symphysis without cont rast. Automated dose control was utilized. Comparison: 12/27/2017 Findings: The lung bases are clear. There is mild hypertrophy of the caudate and left lobes of the li danielle. The gallbladder has been removed with clips in the gallbladder fossa. The bile ducts, pancreas, and spleen are unremarkable. The adrenals are normal. The kidneys are normal size with no hydronephro sis, renal stone , or mass. There surgical clips along the right colon posteriorly and inferiorly whi ch is unchanged. The appendix is not well visualized there is no pericecal inflammation. The ureters are normal caliber. No adenopathy or ascites is seen. There are diverticula throughout the sigmoid co tiffany and there is mild stranding in the pericolonic fat around the proximal and mid sigmoid colon exte nding inferiorly with no pericolonic fluid collection or mass. This was seen previously and is slight ly less prominent. There is no bowel obstruction. The uterus is atrophic with no adnexal mass or free fluid. The bladder is unremarkable. There is surgical mesh material along the anterior abdominal wal l which is unchanged. The bones are intact. No aggressive osseous lesion is seen. Impression: Mild diverticulitis along the proximal and mid sigmoid colon which is less prominent from the prior s tudy. This could represent recurrent or possible slowly resolving diverticulitis and residual scarrin g with no abscess or fluid collection seen. Chronic liver changes which is unchanged. Status post cholecystectomy and previous appendectomy No hydronephrosis or renal stones and no urinary obstruction. Reported By:
== END 2018-01-24 10:30 | disposition home or self-care (01) ==
LOC: ER 08:24
DX: K57.32 Diverticulitis of large intestine without perforation or abscess without bleeding (principal); R10.12 Left upper quadrant pain
CPT/HCPCS: 36415; 74176; 80053; 81001; 82150; 82306; 83690; 85025; 96372; 99282; J1885

== ENCOUNTER → 2018-03-03 | Outpatient (CLI) | payer OTHER ==
--- NOTE | 2018-03-03 15:05 | RAD ---
Exam: Lumbar spine, flexion and extension views History: 47-year-old female with lower back pain. Comparison: Previous lumbar spine radiographs from 02/17/2017. Findings: Lateral flexion and extension views demonstrate normally aligned lumbar vertebral bodies. Alignment i s maintained with both flexion and extension. Impression: Lumbar vertebral body alignment is maintained on both flexion and extension views. Reported By:
--- NOTE | 2018-03-03 15:38 | MRI ---
STUDY: MRI OF THE LUMBAR SPINE HISTORY: Lumbar disc disease. Low back pain. Comparison: None. Technique: Multiplanar multi-sequence MRI of the lumbar spine was performed. Sagittal T1, sagittal T 2, and STIR images, axial T1, and axial T2 images were obtained. Findings: Sagittal images: Vertebral body heights and alignment are within normal limits. Marrow signal is age-appropriate. Inte rvertebral discs are fairly well preserved. The small focus of T2 hyperintensity in the sacrum seen on sagittal STIR image 8 is not clearly identified on axial images and may be artifact. The conus medullaris is normal in appearance terminating at the level of L1/2. Axial images: T12 -- L1: Normal. L1 -- L2: Normal. L2 -- L3: There is a broad-based disc bulge, bilateral facet arthropathy and ligamentum flavum infold ing. This results in mild central canal stenosis. The neural foramina are adequate. L3 -- L4: There is a broad-based disc bulge, bilateral facet arthropathy and ligamentum flavum infold ing. This results in mild central canal stenosis. The neural foramina are adequate. L4 -- L5: There is a broad-based disc bulge, bilateral facet arthropathy and ligamentum flavum infold ing. The central canal and neural foramina are adequate. L5 -- S1: There is bilateral facet arthropathy. The central canal and neural foramina are adequate. IMPRESSION: 1. Mild multilevel lumbar spondylosis. 2. Moderate spinal stenosis at L3/4. Mild spinal stenosis at L2/3. 3. No significant neural foraminal stenosis. 4. Small focus of T2 hyperintensity in the sacrum. This is an indeterminate finding, and may be secon be to a vascular pulsation artifact. However, small focus of marrow edema is not completely exclude d. Would consider further evaluation with gadolinium-enhanced images through the sacrum including sag ittal and axial T1 FS images focused on this region. Reported By:
== END ==
LOC: RAD 13:04
PROVIDERS: ATTEND Neurological Surgery
DX: M51.36 Other intervertebral disc degeneration, lumbar region (principal)
CPT/HCPCS: 72110; 72148

== ENCOUNTER 2023-02-06 13:13 | Observation (INO) ==
[2023-02-06] MEDS ORDERED: CIPRO IV 400 MG PREMIX* 400 MG/200 ML IV.SOLN. IV SCH (14:00)
[2023-02-06 14:32] VITALS: BMI 37.3
[2023-02-06] MEDS: LEVAQUIN PREMIX IV 500 MG 500 MG/100 ML BAG IV SCH (14:38)
[2023-02-06] MEDS: NS 1,000 ML IV 1,000 ML IV SCH (14:38)
[2023-02-06] MEDS: PROTONIX INJ 40 MG VIAL IVP SCH (14:39)
[2023-02-06] MEDS: ZOFRAN INJ 4 MG VIAL IVP PRN (14:40)
[2023-02-06] MEDS: MORPHINE SULFATE INJ 2 MG INJ IVP PRN (14:41)
[2023-02-06 14:43] LABS: BASOPHILS # (AUTO) 0.1 X10^3/uL (0.0-0.1); BASOPHILS % (AUTO) 0.6 % (0.2-1.0); EOSINOPHILS # (AUTO) 0.2 x10^3/uL (0.0-0.2); EOSINOPHILS % (AUTO) 1.4 % (0.9-2.9); LYMPHOCYTES # (AUTO) 1.7 X10^3/uL (1.3-2.9); MEAN CORPUSCULAR HEMOGLOBIN 26.5 pg (27.0-34.0); MEAN CORPUSCULAR HGB CONC 33.2 g/dL (33.0-35.0); MEAN CORPUSCULAR VOLUME 79.7 fL (80.0-100.0); MEAN PLATELET VOLUME 7.9 fL (7.4-11.0); MONOCYTES # (AUTO) 1.3 x10^3/uL (0.3-0.8); MONOCYTES % (AUTO) 8.2 % (0.0-13.0); NEUTROPHILS # (AUTO) 12.3 x10^3/uL (2.2-4.8); NEUTROPHILS % (AUTO) 78.8 % (42.0-75.0); RED BLOOD COUNT 4.51 X10^6/uL (3.5-5.4); RED CELL DISTRIBUTION WIDTH 15.7 % (11.6-16.5); WHITE BLOOD COUNT 15.7 X10^3/uL (3.6-10.0)
[2023-02-06 15:08] LABS: ALANINE AMINOTRANSFERASE 14 Units/L (12-78); ALBUMIN 3.4 g/dL (3.4-5.0); ALKALINE PHOSPHATASE 86 Units/L (46-116); ASPARTATE AMINO TRANSFERASE 12 Units/L (15-37); BLOOD UREA NITROGEN 9 mg/dL (7-18); CALCIUM 8.6 mg/dL (8.5-10.1); CARBON DIOXIDE 29.2 mmol/L (21-32); CHLORIDE 103 mmol/L (98-107); CREATININE 0.73 mg/dL (0.55-1.02); SODIUM 139 mmol/L (136-145); TOTAL PROTEIN 6.6 g/dL (6.4-8.2); eGFR NON BLACK RACES > 60 (>60)
[2023-02-06] MEDS ORDERED: K-DUR TAB 20 MEQ PO PRN (15:23)
[2023-02-06 15:28] LABS: BILIRUBIN,URINE NEGATIVE (NEGATIVE); BLOOD/HEMOGLOBIN,URINE NEGATIVE (NEGATIVE); GLUCOSE, URINE NEGATIVE (NEGATIVE); KETONES,URINE NEGATIVE (NEGATIVE); LEUKOCYTE ESTERASE ,URINE NEGATIVE (NEGATIVE); NITRITES,URINE NEGATIVE (NEGATIVE); PROTEIN,URINE NEGATIVE (NEGATIVE); UROBILINOGEN,URINE NORMAL (NORMAL)
[2023-02-06 15:31] LABS: APPEARANCE,URINE CLEAR (CLEAR); COLOR,URINE YELLOW (YELLOW)
[2023-02-06] MEDS: FLAGYL IV PREMIX 500 MG BAG 500 MG/100 ML BAG IV SCH ×3 (16:00→21:12)
[2023-02-06] MEDS ORDERED: KLONOPIN TAB 1 MG PO PRN (17:45)
[2023-02-06] MEDS ORDERED: AMBIEN PO PRN (17:45)
--- NOTE | 2023-02-06 17:52 | DR.H&P ---
H&P - History & Physical for Day of: H&P Date: 02/06/23 - Chief Complaint Chief Complaint: LOWER ABDOMINAL PAIN, N/V - History of Present Illness History of Present Illness: PT IS 52 WF, DIRECT ADMIT FOR TREATMENT OF ACUTE DIVERTICULITIS, FAILED OUTPT TREATMENT WITH CIPRO AND FLAGYL PO. PT HAS PMH OF HTN, OA, SHAE, MDD, HX BREAST CANCER @10YEAR POST, C &L SPINE DDD WITH HX OF FUSIONS. PT ADMITTED FOR TREATMENT OF ACUTE ILLNESS. - Past Medical History Past Medical History: Anxiety, Arthritis, GERD, Hypertension, PUD - Past Surgical History Surgical History: 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, 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, 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 - Family History Family Medical History: Cancer, OR, Heart Failure, Hypertension - Social History Does patient currently use any type of tobacco product: Yes Have you used tobacco products in the last 12 months: Yes Type of Tobacco Use: Cigarettes How many years tobacco product used: 20 Does any household member use tobacco: No Alcohol Use: None Drug Use: None - Medications Home Medications: amoxicillin Adverse Reaction (Severe, Verified 09/29/20 15:02) ANAPHALEXIS REACTION Penicillins Adverse Reaction (Severe, Verified 09/29/20 15:02) ANAPHALEXIS REACTION codeine Adverse Reaction (Mild, Verified 09/29/20 15:02) RASH CONTINUE taking the following medications atorvastatin 10 mg tablet 10 mg PO QPM 02/06/23 [History] bupropion HCl 75 mg tablet 75 mg PO QAM 02/06/23 [History] clonazepam 1 mg tablet 1 mg PO DAILY PRN 02/06/23 [History] fluticasone propionate 50 mcg/actuation nasal spray,suspension 2 spray intranasal DAILY 02/06/23 [History] gabapentin 100 mg capsule 100 mg PO TID 02/06/23 [History] lisinopril 10 mg tablet 10 mg PO BID 02/06/23 [History] meloxicam 15 mg tablet 15 mg PO QDAY 02/06/23 [History] nystatin 100,000 unit/mL oral suspension 5 ml PO QID 02/06/23 [History] ondansetron 4 mg disintegrating tablet 4 mg PO Q8-10H PRN 02/06/23 [History] tramadol 37.5 mg-acetaminophen 325 mg tablet 1 tab PO QDAY PRN 02/06/23 [History] zolpidem 5 mg tablet 5 mg PO QPM PRN 02/06/23 [History] - Review of Systems Constitutional: Chills, Malaise Eyes: No Symptoms Reported, Vision Change Respiratory: No Symptoms Reported Gastrointestinal: Nausea, Vomiting, Abdominal Pain Genitourinary: No Symptoms Reported Musculoskeletal: Back Pain Skin: No Symptoms Reported Neurological: No Symptoms Reported - Physical Exam Vital Signs: Temperature 98.1 F Pulse Rate [Right Radial] 86 Respiratory Rate 15 Blood Pressure [Left Arm] 145/74 Blood Pressure [Standing] 116/69 Blood Pressure [Sitting] 104/62 Blood Pressure [Lying] 116/69 Blood Pressure 118/64 Oriented: Normal Eyes: Normal Ear: Normal Nose: Normal Throat: Normal Respiratory: Clear Throughout Cardiovascular: Normal : Normal Auscultation: Bowel Sounds: Normal Palpation: Normal Tenderness: Diffuse, RLQ, LUQ, LLQ Skin: Decreased Turgur Musculoskeletal: Back:Thoracic, Back:Lumbar Psychiatric: Anxiety Affect: Anxious Speech Pattern: Clear, Appropriate - Assessment/Plan (1) Diverticulitis Status: Acute Plan: ADMIT, NPO WITH IV LEVAQUIN AND FLAGYL. ADMISSION CT ABD/PELVIS STAT WITH CONTRAST. SURGICAL CONSULT WITH DR MARX. IV HYDRATION. PAIN CONTROL, VERIFY HOME MEDICATION. ELECTROLYTE REPLACEMENT (2) Hypertension Status: Acute (3) GERD (gastroesophageal reflux disease) Status: Acute (4) Osteoarthritis Status: Acute - Allergies Allergies/Adverse Reactions: Allergies Allergy/AdvReac Type Severity Reaction Status Date / Time amoxicillin AdvReac Severe ANAPHALEXIS Verified 09/29/20 15:02 REACTION Penicillins AdvReac Severe ANAPHALEXIS Verified 09/29/20 15:02 REACTION codeine AdvReac Mild RASH Verified 09/29/20 15:02
--- NOTE | 2023-02-06 19:49 | RAD ---
EXAM: ABDOMEN X-RAY SERIES WITH CXRHISTORY: Abdominal pain. Diverticulitis.TECHNIQUE: Supine and erect views of the abdomen; frontal single view CXRCOMPARISON: None.FINDINGS:ABDOMEN: Abundant fecal material is seen within the large bowel loops; nonspecific finding; rule out constipation. The bowel gas pattern is otherwise nonspecific and nonobstructive. There is no gross organomegaly, free intraperitoneal air, or suspicious calcifications seen. Surgical clips are seen in the right upper quadrant in keeping with prior cholecystectomy. The visualized bony structures are within normal limits.CHEST: The heart size and mediastinum are within normal limits. The lung love and costophrenic angles are clear. There is no acute parenchymal infiltrate, pleural effusion, or pneumothorax seen. The visualized bony structures are within normal limits.IMPRESSION:1. Abundant fecal material is seen within the large bowel loops; nonspecific finding; rule out constipation.2. No gross organomegaly, free intraperitoneal air, or suspicious calcifications seen.3. No evidence for acute cardiopulmonary disease seen.4. Consider follow-up evaluation with CT to rule out radiographically occult acute abnormalities (e.g. diverticulitis) as clinically warranted.Electronically signed by: Aniyah Roldan (Feb 06, 2023 19:46:56)
[2023-02-06] MEDS: LIPITOR TAB 10 MG PO SCH (21:08)
[2023-02-06] MEDS: ZESTRIL TAB 10 MG PO SCH (21:08)
[2023-02-06] MEDS: NEURONTIN CAP 100 MG PO SCH (21:09)
[2023-02-07] MEDS: FLAGYL IV PREMIX 500 MG BAG 500 MG/100 ML BAG IV SCH ×4 (03:26→21:12)
[2023-02-07] MEDS: NS 1,000 ML IV 1,000 ML IV SCH ×2 (03:27→23:41)
[2023-02-07] MEDS: NEURONTIN CAP 100 MG PO SCH ×3 (05:50→21:12)
[2023-02-07 05:58] LABS: BASOPHILS # (AUTO) 0.1 X10^3/uL (0.0-0.1); EOSINOPHILS # (AUTO) 0.3 x10^3/uL (0.0-0.2); EOSINOPHILS % (AUTO) 3.3 % (0.9-2.9); HEMOGLOBIN 11.8 g/dL (12.0-16.0); LYMPHOCYTES # (AUTO) 1.5 X10^3/uL (1.3-2.9); LYMPHOCYTES % (AUTO) 14.2 % (21.0-51.0); MEAN CORPUSCULAR HEMOGLOBIN 26.4 pg (27.0-34.0); MEAN CORPUSCULAR HGB CONC 32.8 g/dL (33.0-35.0); MEAN CORPUSCULAR VOLUME 80.5 fL (80.0-100.0); MEAN PLATELET VOLUME 8.3 fL (7.4-11.0); MONOCYTES # (AUTO) 1.1 x10^3/uL (0.3-0.8); MONOCYTES % (AUTO) 10.3 % (0.0-13.0); NEUTROPHILS # (AUTO) 7.4 x10^3/uL (2.2-4.8); NEUTROPHILS % (AUTO) 71.2 % (42.0-75.0); RED BLOOD COUNT 4.47 X10^6/uL (3.5-5.4); RED CELL DISTRIBUTION WIDTH 16.1 % (11.6-16.5); WHITE BLOOD COUNT 10.3 X10^3/uL (3.6-10.0)
[2023-02-07 06:04] LABS: ALANINE AMINOTRANSFERASE 14 Units/L (12-78); ALBUMIN 3.1 g/dL (3.4-5.0); ALKALINE PHOSPHATASE 85 Units/L (46-116); ASPARTATE AMINO TRANSFERASE 14 Units/L (15-37); BLOOD UREA NITROGEN 7 mg/dL (7-18); CALCIUM 8.4 mg/dL (8.5-10.1); CARBON DIOXIDE 27.3 mmol/L (21-32); CHLORIDE 106 mmol/L (98-107); COR CA(FOR HYPOALB) 9.1 mg/dL (8.5-10.1); SODIUM 141 mmol/L (136-145); TOTAL PROTEIN 6.3 g/dL (6.4-8.2); eGFR NON BLACK RACES > 60 (>60)
[2023-02-07] MEDS: ZESTRIL TAB 10 MG PO SCH ×2 (08:00→21:12)
[2023-02-07] MEDS: ARIMIDEX PO SCH (08:00)
[2023-02-07] MEDS: LEVAQUIN PREMIX IV 500 MG 500 MG/100 ML BAG IV SCH (08:36)
[2023-02-07] MEDS: PROTONIX INJ 40 MG VIAL IVP SCH (08:36)
[2023-02-07] MEDS: MORPHINE SULFATE INJ 2 MG INJ IVP PRN (10:05)
[2023-02-07] MEDS: ZOFRAN INJ 4 MG VIAL IVP PRN (10:06)
[2023-02-07] MEDS: NICOTINE PATCH TD SCH (12:43)
--- NOTE | 2023-02-07 13:12 | CT ---
CT abdomen and pelvis with contrastIndication: History of diverticulitisCOMPARUK Healthcare 2018TECHNIQUEHelical images through the abdomen and pelvis after IV and oral contrast per protocol. Coronal and sagittal reformats provided.FINDINGSLimited images through the lower chest demonstrate no acute abnormality. Review of bone windows demonstrate no destructive osseous lesion.Abdomen: 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 clips noted. The liver shows no unexpected abnormality. Spleen and pancreas show no acute abnormality. Adrenal glands are normal. Stomach and small bowel show no acute abnormality. The appendix is absent. Oral contrast enters the colon without obstruction. Colonic diverticulosis is noted with surrounding stranding on axial images 83-70. Vascular calcifications noted. The kidneys show no stone or hydroureteronephrosis. Left gonadal vein is prominentPelvis: Urinary bladder appears normal. The lower rectum is relatively normal with postsurgical change noted. Periuterine veins are prominent from particular on the left, with questionable thickening of the endometrium. Sonographic follow-up will be needed to exclude endometrial neoplasia.IMPRESSION1. Acute sigmoid diverticulitis with diverticulum most inflamed seen on coronal image 32 with surrounding stranding. Surgical evaluation recommended.2. Prominent periuterine veins, particular on the left, with possible endometrial thickening. Given potential postmenopausal status, sonographic follow-up is recommended to exclude endometrial neoplasia3. Spine DJD, vascular calcifications and other findings as above.Electronically signed by: FRANCOISE SHAFFER (Feb 07, 2023 13:11:12)
[2023-02-07] MEDS: LIPITOR TAB 10 MG PO SCH (21:12)
[2023-02-08] MEDS: FLAGYL IV PREMIX 500 MG BAG 500 MG/100 ML BAG IV SCH ×2 (04:09→10:33)
[2023-02-08 06:12] LABS: MEAN PLATELET VOLUME 7.7 fL (7.4-11.0)
[2023-02-08] MEDS: NEURONTIN CAP 100 MG PO SCH (06:15)
[2023-02-08 06:17] LABS: ALANINE AMINOTRANSFERASE 14 Units/L (12-78); ALBUMIN 3.2 g/dL (3.4-5.0); ALKALINE PHOSPHATASE 83 Units/L (46-116); ASPARTATE AMINO TRANSFERASE 13 Units/L (15-37); BASOPHILS # (AUTO) 0.1 X10^3/uL (0.0-0.1); BLOOD UREA NITROGEN 8 mg/dL (7-18); CALCIUM 8.6 mg/dL (8.5-10.1); CARBON DIOXIDE 27.3 mmol/L (21-32); CHLORIDE 105 mmol/L (98-107); COR CA(FOR HYPOALB) 9.2 mg/dL (8.5-10.1); CREATININE 0.62 mg/dL (0.55-1.02); EOSINOPHILS # (AUTO) 0.3 x10^3/uL (0.0-0.2); EOSINOPHILS % (AUTO) 3.4 % (0.9-2.9); HEMATOCRIT 36.2 % (36.0-47.0); HEMOGLOBIN 12.2 g/dL (12.0-16.0); LYMPHOCYTES # (AUTO) 1.5 X10^3/uL (1.3-2.9); LYMPHOCYTES % (AUTO) 18.7 % (21.0-51.0); MEAN CORPUSCULAR HEMOGLOBIN 27.1 pg (27.0-34.0); MEAN CORPUSCULAR HGB CONC 33.8 g/dL (33.0-35.0); MEAN CORPUSCULAR VOLUME 80.2 fL (80.0-100.0); MONOCYTES # (AUTO) 0.6 x10^3/uL (0.3-0.8); MONOCYTES % (AUTO) 8.1 % (0.0-13.0); NEUTROPHILS # (AUTO) 5.5 x10^3/uL (2.2-4.8); NEUTROPHILS % (AUTO) 68.8 % (42.0-75.0); RED BLOOD COUNT 4.51 X10^6/uL (3.5-5.4); RED CELL DISTRIBUTION WIDTH 15.7 % (11.6-16.5); SODIUM 140 mmol/L (136-145); TOTAL PROTEIN 6.5 g/dL (6.4-8.2); eGFR NON BLACK RACES > 60 (>60)
[2023-02-08] MEDS: PROTONIX INJ 40 MG VIAL IVP SCH (08:13)
[2023-02-08] MEDS: NICOTINE PATCH TD SCH (08:14)
[2023-02-08] MEDS: ARIMIDEX PO SCH (08:14)
[2023-02-08] MEDS: ZESTRIL TAB 10 MG PO SCH (08:14)
[2023-02-08] MEDS: LEVAQUIN PREMIX IV 500 MG 500 MG/100 ML BAG IV SCH (08:14)
--- NOTE | 2023-02-08 09:43 | DR.PROGNOT ---
HOSPITAL PROGRESS NOTE Progress Note for Day of: Progress Note Date: 02/08/23 Chief Complaint Chief Complaint: feeling better today , mild lower abdominal pain , no nausea no vomiting . CT confirmed the sigmoid diverticulitis , no abscess , no complications . normal CBC and afebrile . Past Medical Family Social History Allergies: Allergies amoxicillin Adverse Reaction (Severe, Verified 09/29/20 15:02) ANAPHALEXIS REACTION Penicillins Adverse Reaction (Severe, Verified 09/29/20 15:02) ANAPHALEXIS REACTION codeine Adverse Reaction (Mild, Verified 09/29/20 15:02) RASH Vital Signs Vital Signs: Temperature 97.8 F Pulse Rate [Right Radial] 78 Respiratory Rate 18 Blood Pressure [Left Arm] 145/81 Blood Pressure [Standing] 116/69 Blood Pressure [Sitting] 104/62 Blood Pressure [Lying] 116/69 Blood Pressure 118/64 O2 Sat by Pulse Oximetry 98 Physical Exam Oriented: Normal Eyes: Normal Ear: Normal Nose: Normal Throat: Normal Cardiovascular: Normal : Normal GI:Auscultation: Normal GI:Palpation: Normal GI: Tenderness: Diffuse, RLQ, LUQ (mild rebound ) and LLQ Skin: Decreased [place] Musculoskeletal: Back:Thoracic and Back:Lumbar Psychiatric: Anxiety Affect: Anxious Speech Pattern: Clear and Appropriate Laboratory and Diagnostics Result Diagrams: 02/08/23 05:58 02/08/23 05:58 Labs: Laboratory WBC 8.0 X10^3/uL (3.6-10.0) 02/08/23 05:58 RBC 4.51 X10^6/uL (3.5-5.4) 02/08/23 05:58 Hgb 12.2 g/dL (12.0-16.0) 02/08/23 05:58 Hct 36.2 % (36.0-47.0) 02/08/23 05:58 MCV 80.2 fL (80.0-100.0) 02/08/23 05:58 MCH 27.1 pg (27.0-34.0) 02/08/23 05:58 MCHC 33.8 g/dL (33.0-35.0) 02/08/23 05:58 RDW 15.7 % (11.6-16.5) 02/08/23 05:58 Plt Count 243 X10^3/uL (150.0-450.0) 02/08/23 05:58 MPV 7.7 fL (7.4-11.0) 02/08/23 05:58 Neut % (Auto) 68.8 % (42.0-75.0) 02/08/23 05:58 Lymph % (Auto) 18.7 % (21.0-51.0) L 02/08/23 05:58 [place] % (Auto) 8.1 % (0.0-13.0) 02/08/23 05:58 Eos % (Auto) 3.4 % (0.9-2.9) H 02/08/23 05:58 Baso % (Auto) 1.0 % (0.2-1.0) 02/08/23 05:58 Neut # (Auto) 5.5 x10^3/uL (2.2-4.8) H 02/08/23 05:58 Lymph # (Auto) 1.5 X10^3/uL (1.3-2.9) 02/08/23 05:58 [place] # (Auto) 0.6 x10^3/uL (0.3-0.8) 02/08/23 05:58 Eos # (Auto) 0.3 x10^3/uL (0.0-0.2) H 02/08/23 05:58 Baso # (Auto) 0.1 X10^3/uL (0.0-0.1) 02/08/23 05:58 Absolute Nucleated RBC 0.0 /100WBC 02/08/23 05:58 Sodium 140 mmol/L (136-145) 02/08/23 05:58 Corrected Sodium TNP 02/08/23 05:58 Potassium 3.9 mmol/L (3.5-5.1) 02/08/23 05:58 Chloride 105 mmol/L (98-107) 02/08/23 05:58 Carbon Dioxide 27.3 mmol/L (21-32) 02/08/23 05:58 BUN 8 mg/dL (7-18) 02/08/23 05:58 Creatinine 0.62 mg/dL (0.55-1.02) 02/08/23 05:58 Est GFR (MDRD) Af Amer > 60 (>60) 02/08/23 05:58 Est GFR (MDRD) Non-Af > 60 (>60) 02/08/23 05:58 Glucose 109 mg/dL (65-99) H 02/08/23 05:58 Calcium 8.6 mg/dL (8.5-10.1) 02/08/23 05:58 Corrected Calcium 9.2 mg/dL (8.5-10.1) 02/08/23 05:58 Magnesium 2.0 mg/dL (2.0-2.9) 02/06/23 14:30 Total Bilirubin 0.20 mg/dL (0.2-1.0) 02/08/23 05:58 AST 13 Units/L (15-37) L 02/08/23 05:58 ALT 14 Units/L (12-78) 02/08/23 05:58 Alkaline Phosphatase 83 Units/L (46-116) 02/08/23 05:58 Total Protein 6.5 g/dL (6.4-8.2) 02/08/23 05:58 Albumin 3.2 g/dL (3.4-5.0) L 02/08/23 05:58 Globulin 3.3 g/dL (2.5-4.5) 02/08/23 05:58 Albumin/Globulin Ratio 1.0 Ratio (1.1-2.1) L 02/08/23 05:58 Specimen Type Clean catch urine 02/06/23 15:03 Urine Color Yellow (YELLOW) 02/06/23 15:03 Urine Appearance Clear (CLEAR) 02/06/23 15:03 Urine pH 6.0 (5.0 - 8.0) 02/06/23 15:03 Ur Specific [place] 1.015 (1.000-1.030) 02/06/23 15:03 Urine Protein Negative (NEGATIVE) 02/06/23 15:03 Urine Glucose (UA) Negative (NEGATIVE) 02/06/23 15:03 Urine Ketones Negative (NEGATIVE) 02/06/23 15:03 Urine Blood Negative (NEGATIVE) 02/06/23 15:03 Urine Nitrite Negative (NEGATIVE) 02/06/23 15:03 Urine Bilirubin Negative (NEGATIVE) 02/06/23 15:03 Urine Urobilinogen Normal (NORMAL) 02/06/23 15:03 Ur Leukocyte Esterase Negative (NEGATIVE) 02/06/23 15:03 Assessment and Plan 1: recurrent sigmoid diverticulitis . on ABT . Pt could be D/c on oral Cipro and Flagyl for 10 days . to follow in 2 weeks . elective sigmoid resection is indicated for frequent recurrent diverticulitis . Problem Patient Problems: Patient Problems (Updated 02/06/23 @ 17:52 by ELSI DANG) Diverticulitis (Acute) K57.92 Hypertension (Acute) I10 GERD (gastroesophageal reflux disease) (Acute) K21.9 Osteoarthritis (Acute) M19.90
[2023-02-08 11:37] VITALS: BP 148/79
== END 2023-02-08 11:35 | disposition home or self-care (01) ==
LOC: MED/SURG
PROVIDERS: ADMIT Internal Medicine; ATTEND Internal Medicine
DX: I10 Essential (primary) hypertension; R11.2 Nausea with vomiting, unspecified; K57.32 Diverticulitis of large intestine without perforation or abscess without bleeding; F41.8 Other specified anxiety disorders; K21.9 Gastro-esophageal reflux disease without esophagitis; E87.6 Hypokalemia; M19.90 Unspecified osteoarthritis, unspecified site; R10.84 Generalized abdominal pain; E86.0 Dehydration

== ENCOUNTER 2025-09-12 09:32 | Inpatient (IN) ==
[~2025-09-12 09:32] MED LIST: KETAMINE HCL ONE; ULTANE GAS IN ONE
--- NOTE | 2025-09-12 09:46 | EKG ---
Test Reason : elevated heart rate Blood Pressure : */* mmHG Vent. Rate : 140 BPM Atrial Rate : 140 BPM P-R Int : 122 ms QRS Dur : 72 ms QT Int : 292 ms P-R-T Axes : 71 78 70 degrees QTc Int : 445 ms Sinus tachycardia Otherwise normal ECG When compared with ECG of 03-MAY-2025 10:30, Vent. rate has increased BY 50 BPM Confirmed by Mike Maxwell MD ([id number]) on 09/12/2025 12:35:14 PM Referred By: Confirmed By: Mike Maxwell MD
[2025-09-12] MEDS: ZOFRAN INJ 4 MG VIAL IVP ONE (09:54)
[2025-09-12] MEDS: TORADOL 15 MG VIAL IVP ONE (09:55)
--- NOTE | 2025-09-12 10:12 | ED.ABDFE ---
HPI Time Seen Time Seen by Provider: 09/12/25 09:42 PCP Primary Care Physician: Carley Garcia NP Complaint Doctors Chief Complaint Comments: Patient states he woke up at 1 AM with intense abdominal pain radiation to the ribs neck and back as well as bilateral arm pain. Patient states she also has nausea. Denies fever. Chief Complaint:: Patient arrived via EMS, she c/o rib, neck, abdomen, back and bilateral arm pain that started around 1am. also c/o nausea COVID-19 Coronavirus risk:travel/contact w/high risk person: No Has patient experienced Coronavirus symptoms: No Source History Provided: Patient and EMS Mode of arrival Mode of Arrival: Stretcher Timing Onset of Chief Complaint: 09/12/25 PMH PMH Past Medical History: Yes Past Medical History: Anxiety, Arthritis, GERD, Hypertension and PUD Past Medical History Comment: neuropathy Past Surgical History: Yes Surgical History: 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, 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 and 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 Past Surgical History Comment: right lumpectomy, abdomen mesh, D&C Family History History of Family Medical Conditions: Yes Family Medical History: Cancer, [place], Heart Failure and Hypertension Social History Type of Tobacco Use: None Alcohol Use: None Do you use any recreational Drugs:: No Lives With: Spouse Lives Where: Home Travel Risk Coronavirus risk:travel/contact w/high risk person: No Has patient experienced Coronavirus symptoms: No Infectious screening Have you traveled outside the country in the last 6 months?: No Isolation: Standard ROS Review of Systems Constitutional: No Symptoms Reported Eyes: No Symptoms Reported ENTM: No Symptoms Reported Respiratoy: No Symptoms Reported Cardiovascular: No Symptoms Reported Gastrointestinal/Abdominal: See HPI Genitourinary: No Symptoms Reported Neurological: No Symptoms Reported Musculoskeletal: See HPI Integumentary: No Symptoms Reported Hematologic/Lymphatic: No Symptoms Reported Endocrine: No Symptoms Reported Psychiatric: No Symptoms Reported All Other Systems: Reviewed and Negative PE Vital Signs Vitals: Vital Signs Temperature 98.4 F Pulse Rate 133 Pulse Rate 133 Pulse Rate 138 Pulse Rate 143 Pulse Rate 144 Respiratory Rate 24 Respiratory Rate 28 Respiratory Rate 28 Respiratory Rate 30 Respiratory Rate 23 Blood Pressure 81/56 General Limitations: No Limitations and Language Barrier General Appearance: Alert and In Distress Head Head Exam: Normal Inspection Eyes Eye exam: Normal Appearance Neck Neck Exam: Normal Inspection Chest Chest Inspection: Normal Inspection Respiratory Respiratory Exam: Normal Lung Sounds Bilat Cardiovascular Cardiovascular Exam: Regular Rate and Normal Rhythm Abdominal Exam Abdominal Exam: Distention, Tenderness, Guarding and Rigidity; negative Soft or Rebound Rectal Rectal Exam: Deferred Back Back Exam: Normal Inspection Extremeties Extremities Exam: Normal Inspection Neurologic Neurological Exam: Alert and Oriented X3 Psychiatric Psychiatric Exam: Normal Affect and Normal Mood Skin Skin Exam: Warm, Dry and Intact COURSE Treatment Treatment: Discussed results of workup with patient and. Surgeon, Dr. Brown came in to see her in ER and is planning surgery. Patient found to have free air in abdomen, suspect small bowel perforation. Patient also septic and has received 3 L of fluid. Potassium and magnesium supplemented and IV. Antibiotics started. Consultation Consultation Comments: Dr. Juarez consulted on case and agreeable to admission. Critical Care Notes Total Time (mins): 42 Critical Diagnosis: Free air in peritoneum, small bowel obstruction, Sepsis Critical Interventions: NG tube placed, fluid resuscitation, antibiotics started. Time also spent ordering and reviewing workup results. Time spent in consultation with specialist and preparing for admission. Time spent discussing and educating patient and family. ROR Labs Reviewed Laboratory Results Reviewed?: Yes 09/12/25 09:57 09/12/25 09:57 Laboratory: WBC 1.7 X10^3/uL (3.6-10.0) L* 09/12/25 09:57 RBC 6.44 X10^6/uL (3.5-5.4) H 09/12/25 09:57 Hgb 17.4 g/dL (12.0-16.0) H 09/12/25 09:57 Hct 53.6 % (36.0-47.0) H 09/12/25 09:57 MCV 83.2 fL (80.0-100.0) 09/12/25 09:57 MCH 27.0 pg (27.0-34.0) 09/12/25 09:57 MCHC 32.5 g/dL (33.0-35.0) L 09/12/25 09:57 RDW 16.0 % (11.6-16.5) 09/12/25 09:57 Plt Count 323 X10^3/uL (150.0-450.0) 09/12/25 09:57 MPV 8.1 fL (7.4-11.0) 09/12/25 09:57 Neut % (Auto) 67.2 % (42.0-75.0) 09/12/25 09:57 Lymph % (Auto) 21.0 % (21.0-51.0) 09/12/25 09:57 [place] % (Auto) 10.8 % (0.0-13.0) 09/12/25 09:57 Eos % (Auto) 0.5 % (0.9-2.9) L 09/12/25 09:57 Baso % (Auto) 0.5 % (0.2-1.0) 09/12/25 09:57 Neut # (Auto) 1.2 x10^3/uL (2.2-4.8) L 09/12/25 09:57 Lymph # (Auto) 0.4 X10^3/uL (1.3-2.9) L 09/12/25 09:57 [place] # (Auto) 0.2 x10^3/uL (0.3-0.8) L 09/12/25 09:57 Eos # (Auto) 0.0 x10^3/uL (0.0-0.2) 09/12/25 09:57 Baso # (Auto) 0.0 X10^3/uL (0.0-0.1) 09/12/25 09:57 Absolute Nucleated RBC 0.4 /100WBC 09/12/25 09:57 PT 14.0 SECONDS (11.8-14.3) 09/12/25 09:57 INR Target Range - 09/12/25 09:57 INR 1.07 (0.8-1.3) 09/12/25 09:57 APTT 27.1 SECONDS (22.9-36.5) 09/12/25 09:57 PTT Comment - 09/12/25 09:57 Sodium 143 mmol/L (136-145) 09/12/25 09:57 Corrected Sodium TNP 09/12/25 09:57 Potassium 2.9 mmol/L (3.5-5.1) L* 09/12/25 09:57 Chloride 103 mmol/L (98-107) 09/12/25 09:57 Carbon Dioxide 26.8 mmol/L (21-32) 09/12/25 09:57 BUN 18 mg/dL (7-18) 09/12/25 09:57 Creatinine 2.32 mg/dL (0.55-1.02) H 09/12/25 09:57 Est GFR (MDRD) Af Amer 28 (>60) L 09/12/25 09:57 Est GFR (MDRD) Non-Af 23 (>60) L 09/12/25 09:57 Glucose 105 mg/dL (65-99) H 09/12/25 09:57 Lactic Acid 7.0 mmol/L (0.4-2.0) H* 09/12/25 09:57 Calcium 9.2 mg/dL (8.5-10.1) 09/12/25 09:57 Corrected Calcium TNP 09/12/25 09:57 Magnesium 1.7 mg/dL (2.0-2.9) L 09/12/25 09:57 Total Bilirubin 0.50 mg/dL (0.2-1.0) 09/12/25 09:57 AST 25 Units/L (15-37) 09/12/25 09:57 ALT 19 Units/L (12-78) 09/12/25 09:57 Alkaline Phosphatase 152 Units/L (46-116) H 09/12/25 09:57 Troponin I High Sens 35.1 ng/L (4.0-60.0) 09/12/25 09:57 Total Protein 6.6 g/dL (6.4-8.2) 09/12/25 09:57 Albumin 3.4 g/dL (3.4-5.0) 09/12/25 09:57 Globulin 3.2 g/dL (2.5-4.5) 09/12/25 09:57 Albumin/Globulin Ratio 1.1 Ratio (1.1-2.1) 09/12/25 09:57 Amylase 215 Units/L (25-115) H 09/12/25 09:57 Lipase 26 Units/L (16-77) 09/12/25 09:57 Other Results Comments: Name: DANIEL HUGO : 1970 Sex: F Location: ER Order Number(s): [id number] Procedure(s):CT ABDOMEN/PELVIS W/O CON Ordering Physician: Carson Winter Primary Care: NFD,None Service Date: 09/12/25 Service Time: 944 EXAMINATION: ABDOMEN/PELVIS W/O CON HISTORY: ABD PAIN; COMPARISON: None. TECHNIQUE: Contiguou s noncontrast axial CT images abdomen and pelvis. Images reviewed in the axial imaging plane with reformatted sagittal and coronal images.The above CT scan was done with automated exposure control and the mA and kV was adjusted to obtain quality images according to patient size. FINDINGS: Details of the organs are limited since intravenous and oral contrast were not used. There is intraperitoneal free air collecting anteriorly within the abdomen and pelvis. There are numerous tiny collections of air scattered within the mesentery. There is stranding/edema of the mesentery. Small amount of ascites along the pericolic gutters and dependent pelvis. Details of the GI tract are limited since oral contrast was not used. Moderate distention of multiple loops of proximal small bowel containing fluid with mild bowel wall thickening. More distal small bowels normal caliber. Mild amount of bowel-gas and feces. Scattered colonic diverticulosis. No evidence of acute appendicitis. The liver, pancreas, spleen, adrenal glands appear intact. 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. No bile duct dilatation. Scattered arterial vascular calcifications abdominal aorta and branch vessels. Urinary bladder mildly distended with urine. Uterus is atrophic. Mild spondylosis. IMPRESSION: Intraperitoneal free air. Numerous tiny collections of air scattered within the mesentery. There is stranding/edema of the mesentery. Small amount of ascites along the pericolic gutters and dependent pelvis. Recommend emergent surgical consultation. Moderate distention of multiple loops of proximal small bowel containing fluid with mild bowel wall thickening. Scattered colonic diverticulosis. 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. THIS IS AN ELECTRONICALLY VERIFIED FINAL REPORT 09/12/2025 10:54 AM - Electronically signed by Elisabeth Aguirre MD EKG Rate: 140 [place]: Normal Rhythm: ST Block: None Hypertrophy: None ST: Normal Opioid Opioid Risk Tool Age ([place] if 16-45): No History of Preadolescent Sexual Abuse: No Total: 0 Total Score Risk Category: Low Risk Copyright: Deangelo SAVAGE predicting aberrant behaviors Discharge Plan Diagnosis Discharge Problem: Perforated small intestine, Sepsis, Hypotension, Tachycardia Discharge Plan Patient Disposition: ADMITTED INPATIENT Condition: Stable Prescriptions: No Action atorvastatin 20 mg tablet 20 mg PO QDAY methotrexate sodium 2.5 mg tablet 12.5 mg PO QWEEK folic acid 1 mg tablet 1 mg PO QDAY ergocalciferol (vitamin D2) 1,250 mcg (50,000 unit) capsule 1,250 mcg PO QWEEK duloxetine 60 mg capsule,delayed release(DR/EC) 60 mg PO QDAY Vraylar 1.5 mg capsule 1.5 mg PO QDAY Mounjaro 5 mg/0.5 mL pen injector 5 mg subcut QWEEK anastrozole 1 mg Tablet 1 mg PO DAILY pantoprazole 40 mg Tablet,Delayed Release (Dr/Ec) 40 mg PO BID meloxicam 15 mg tablet 15 mg PO QDAY bupropion HCl 75 mg tablet 75 mg PO QAM Health Concerns: Post Hospitalization: new medications and changes needed to prevent readmission or further decline. Pt educated and given instructions on all concerns. Plan of Treatment: Continue with present treatment and follow up plan. Pt is to keep follow up appointment as instructed and take medications as ordered. Orders to Discharge Patient Discharge Orders: Transfer (Routine); Ordered 09/12/25 Ordered By: Carson Winter Follow ups/Referrals Follow ups/Referrals: NFD,None [Primary Care Provider] - 3 days Instructions Stand Alone Forms: Find Help Web Site, Post Hospital Follow Up Care Print Language: SYRIAC
[2025-09-12] MEDS: MORPHINE SULFATE INJ 2 MG INJ IVP ONE (10:15)
[2025-09-12 10:38] LABS: MEAN PLATELET VOLUME 8.1 fL (7.4-11.0); RED CELL DISTRIBUTION WIDTH 16.0 % (11.6-16.5)
[2025-09-12 10:40] LABS: INR 1.07 (0.8-1.3)
[2025-09-12] MEDS: NS 1,000 ML IV 1,000 ML IV ONE ×4 (10:40→14:16)
[2025-09-12] MEDS: FENTANYL VIAL INJ 100 mcg IVP ONE ×2 (10:50→13:53)
[2025-09-12 10:51] LABS: CREATININE 2.32 mg/dL (0.55-1.02); eGFR NON BLACK RACES 23 (>60)
--- NOTE | 2025-09-12 10:57 | CT ---
EXAMINATION: ABDOMEN/PELVIS W/O CON HISTORY: ABD PAIN; COMPARISON: None. TECHNIQUE: Contiguou s noncontrast axial CT images abdomen and pelvis. Images reviewed in the axial imaging plane with reformatted sagittal and coronal images.The above CT scan was done with automated exposure control and the mA and kV was adjusted to obtain quality images according to patient size. FINDINGS: Details of the organs are limited since intravenous and oral contrast were not used. There is intraperitoneal free air collecting anteriorly within the abdomen and pelvis. There are numerous tiny collections of air scattered within the mesentery. There is stranding/edema of the mesentery. Small amount of ascites along the pericolic gutters and dependent pelvis. Details of the GI tract are limited since oral contrast was not used. Moderate distention of multiple loops of proximal small bowel containing fluid with mild bowel wall thickening. More distal small bowels normal caliber. Mild amount of bowel-gas and feces. Scattered colonic diverticulosis. No evidence of acute appendicitis. The liver, pancreas, spleen, adrenal glands appear intact. 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. No bile duct dilatation. Scattered arterial vascular calcifications abdominal aorta and branch vessels. Urinary bladder mildly distended with urine. Uterus is atrophic. Mild spondylosis. IMPRESSION: Intraperitoneal free air. Numerous tiny collections of air scattered within the mesentery. There is stranding/edema of the mesentery. Small amount of ascites along the pericolic gutters and dependent pelvis. Recommend emergent surgical consultation. Moderate distention of multiple loops of proximal small bowel containing fluid with mild bowel wall thickening. Scattered colonic diverticulosis. 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. THIS IS AN ELECTRONICALLY VERIFIED FINAL REPORT 09/12/2025 10:54 AM - Electronically signed by Elisabeth Aguirre MD
[2025-09-12 11:24] LABS: BLOOD/HEMOGLOBIN,URINE 1+ (NEGATIVE); LEUKOCYTE ESTERASE ,URINE 1+ (NEGATIVE); NITRITES,URINE NEGATIVE (NEGATIVE)
[2025-09-12] MEDS: MAGNESIUM SULFATE 1 GRAM/100 mL PREMIX 1 G/100 ML BAG IV ONE ×2 (11:25→22:31)
[2025-09-12 11:27] LABS: APPEARANCE,URINE CLEAR (CLEAR)
[2025-09-12 11:31] LABS: SQUAMOUS EPITHELIAL CELL,UR RARE /HPF (NEGATIVE)
[2025-09-12] MEDS: VANCOMYCIN IV *PREMIX 1 G/200 ML BAG 1 G/200 ML PIGGYBACK IV ONE (11:43)
[2025-09-12] MEDS: NS 250 ML IV 25 ML IV PRN (11:45)
[2025-09-12] MEDS: ZOSYN VIAL 3.375 GRAMS 3.375 G in NS 100 ML IV 100 ML IV ONE (11:48)
[2025-09-12] MEDS: NS IV ONE (11:49)
[2025-09-12] MEDS: POTASSIUM CHLORIDE IV ONE (11:49)
[2025-09-12] MEDS: [UNRECOGNIZED DRUG - OTHER] IV ONE (11:49)
[2025-09-12] MEDS: FORTAZ or TAZICEF VIAL INJ 1 G in NS 100 ML IV 100 ML IV ONE (12:44)
--- NOTE | 2025-09-12 13:14 | RAD ---
EXAM: KUB HISTORY: ng tube placement; COMPARISON: CT abdomen and pelvis 09/12/2025 TECHNIQUE: Two views FINDINGS: Nasogastric tube tip is coiled in the distal esophagus and should be advanced. Pneumoperitoneum as described on CT abdomen and pelvis is again noted. Nonspecific bowel gas pattern. Pelvis not included on the film. Surgical clips in the right mid abdomen. 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. IMPRESSION: Nasogastric tube tip is coiled in the distal esophagus and should be advanced. Pneumoperitoneum as described on CT abdomen and pelvis 09/12/2025 THIS IS AN ELECTRONICALLY VERIFIED FINAL REPORT 09/12/2025 1:10 PM - Electronically signed by Cayetano Casanova MD
--- NOTE | 2025-09-12 13:20 | RAD ---
EXAMINATION: CHEST, 1 VIEW HISTORY: Chest Pain; . COMPARISON STUDY: 04/18/2025 TECHNIQUE: One view FINDINGS: Heart size is normal. No acute infiltrates. No pneumothorax. Hilar and mediastinal structures and bony structures are unremarkable. Previous ACDF. EKG leads overlie the chest. See CT abdomen and pelvis 09/12/2025 report. IMPRESSION: No acute process in the chest THIS IS AN ELECTRONICALLY VERIFIED FINAL REPORT 09/12/2025 1:17 PM - Electronically signed by Cayetano Casanova MD
--- NOTE | 2025-09-12 13:37 | MD.NOTE ---
Procedures (ALL) - Central Line Placement PCM.CLCO: written consent (h&pb rev, questions ans.) Time out performed: Yes Patient placed pm monitor/pulse ox: Yes MD prep: mask, gown, gloves, other Centrial line prep: chlorhexidine scrub, sterile drapes applied Local anesthsia used: lidocane 1% Ultrasound used for placement: Yes (right IJ cannulation visualized with u/s) Central line lumen ininserted: triple Post procedure: sutured in place (at 16cm), good blood return, all ports aspirated, flushed,capped, sterile dressing applied Post procedure xray: tip oc catheter in good position Patient tolerated procedure: Yes Complications: none
[2025-09-12] MEDS: DOPAMINE IV PREMIX 400 MG/250 ML 400 MG/250 ML BAG IV PRN (13:40)
[2025-09-12] MEDS: POLYMYXIN B SULFATE ONE ×2 (14:08→15:29)
[2025-09-12] MEDS: LR 1,000 ML IV 1,000 ML IV ONE ×3 (14:19→19:17)
[2025-09-12] MEDS: AMIDATE INJ 40 MG VIAL ONE (14:39)
[2025-09-12] MEDS: NEO-SYNEPHRINE INJ ONE (14:39)
[2025-09-12] MEDS: EPHEDRINE SULFATE INJ ONE (14:39)
[2025-09-12] MEDS: FENTANYL VIAL INJ 100 mcg ONE (14:40)
[2025-09-12] MEDS: VERSED ONE ×2 (14:40→17:16)
[2025-09-12] MEDS: ZEMURON 100 MG VIAL ONE (14:40)
[2025-09-12 14:56] LABS: ABG BASE EXCESS -11.2 mmol/L (-2.0-2.0); ABG PCO2 45.0 mmHg (35.0-45.0)
[2025-09-12] MEDS: SODIUM BICARBONATE 8.4% INJ ADULT ONE (14:56)
[2025-09-12 14:57] LABS: ABG HCO3 16.8 mmol/L (22-26); ABG PH 7.180 (7.35-7.45); ABG PO2 48.0 mmHg (80.0-100.0)
[2025-09-12 14:58] LABS: ABG OXYGEN SATURATION 71.0 % (90-100)
[2025-09-12] MEDS: LR 1,000 ML IV 1,200 ML IV PRN (14:58)
[2025-09-12] MEDS: AMIDATE INJ 40 MG VIAL IVP PRN (15:04)
[2025-09-12] MEDS: KETAMINE HCL IV PRN (15:04)
[2025-09-12] MEDS: NS 500 ML IV 500 ML IV ONE (15:24)
--- NOTE | 2025-09-12 15:28 | RAD ---
EXAM: KUB HISTORY: ng tube placement; COMPARISON: KUB from same date at 1157 hours TECHNIQUE: AP abdomen, supine FINDINGS: Gastric decompression tube has been repositioned with tip now in the stomach. No abnormally distended small bowel loops. Partially air-filled colon. IMPRESSION: Gastric decompression tube in satisfactory position. THIS IS AN ELECTRONICALLY VERIFIED FINAL REPORT 09/12/2025 3:25 PM - Electronically signed by Kurt Blankenship MD
[2025-09-12] MEDS: FENTANYL VIAL INJ 100 mcg IVP PRN (15:41)
[2025-09-12] MEDS: DILAUDID INJ ONE (15:49)
[2025-09-12] MEDS: ZOFRAN INJ 4 MG VIAL ONE ×2 (15:55→19:15)
[2025-09-12] MEDS: ZOFRAN INJ 4 MG VIAL IVP PRN (16:00)
--- NOTE | 2025-09-12 16:04 | RAD ---
EXAM: CHEST, 1 VIEW HISTORY: central line ; COMPARISON: September 12 at 10:16 a.m. TECHNIQUE: Portable chest radiograph FINDINGS: Interval placement of a right internal jugular central venous catheter which terminates in the distal SVC. No evidence of pneumothorax. Low lung volumes with more conspicuous streaky bibasilar opacities. There is increased density in the retrocardiac space. There has been interval placement of a nasogastric tube which curls back upon itself with tip angulated cephalically presumably within the distal esophagus. Free air is vaguely demonstrated below the diaphragm. There are persistent dilated, gas-filled small bowel segments within the upper abdomen. No acute osseous abnormalities IMPRESSION: Right internal jugular central venous line appears adequate in position, terminating in the SVC. No pneumothorax is identified Low lung volumes with more conspicuous streaky bibasilar linear opacities corresponding to atelectasis or developing infiltrates Malpositioned NG tube, curled upon itself in the distal esophagus with cephalic angulation of the tip. Recommend repositioning and repeat imaging to confirm final position. Free air is vaguely demonstrated within the upper abdomen, and dilated small bowel loops persist THIS IS AN ELECTRONICALLY VERIFIED FINAL REPORT 09/12/2025 4:00 PM - Electronically signed by Randall Saldana MD
[2025-09-12 16:23] LABS: ABG BASE EXCESS -7.9 mmol/L (-2.0-2.0); ABG HCO3 19.3 mmol/L (22-26); ABG OXYGEN SATURATION 97.0 % (90-100); ABG PCO2 45.0 mmHg (35.0-45.0); ABG PH 7.240 (7.35-7.45); ABG PO2 109.0 mmHg (80.0-100.0)
[2025-09-12] MEDS: ZEMURON 100 MG VIAL IVP PRN (16:29)
[2025-09-12] MEDS ORDERED: DANTRIUM IVP PRN (16:49)
[2025-09-12] MEDS: OFIRMEV IV 1000 MG VIAL 1,000 MG/100 ML VIAL IV ONE (17:01)
[2025-09-12] MEDS: OFIRMEV IV 1000 MG VIAL 1,000 MG/100 ML VIAL IV PRN (17:02)
[2025-09-12] MEDS: DILAUDID INJ IVP PRN (17:24)
[2025-09-12] MEDS: VERSED IVP PRN (17:56)
[2025-09-12] MEDS: LEVOPHED 8 MG/250 ML IV *PREMIX 8 MG/250 ML PLAST..BAG IV PRN (18:00)
[2025-09-12] MEDS ORDERED: ULTRAM PO PRN (18:00)
[2025-09-12] MEDS ORDERED: CONSULT PHARMACY - POTASSIUM & MAGNESIUM XX SCH ×2 (18:00→23:00)
[2025-09-12] MEDS ORDERED: TYLENOL 325 MG TAB PO PRN (18:00)
[2025-09-12] MEDS: DIPRIVAN PREMIX 1 GRAM IV 1,000 MG/100 ML VIAL IV PRN (18:15)
[2025-09-12 18:23] LABS: ABG BASE EXCESS -4.0 mmol/L (-2.0-2.0); ABG HCO3 22.2 mmol/L (22-26); ABG OXYGEN SATURATION 98.0 % (90-100); ABG PCO2 44.0 mmHg (35.0-45.0); ABG PH 7.310 (7.35-7.45)
[2025-09-12 18:24] LABS: ABG PO2 123.0 mmHg (80.0-100.0)
[2025-09-12] MEDS ORDERED: NS 1,000 ML IV 1,000 ML IV SCH (19:00)
[2025-09-12] MEDS: NS 100 ML IV 100 ML ONE (19:15)
[2025-09-12] MEDS: TORADOL 15 MG VIAL ONE (19:15)
[2025-09-12] MEDS: NS 1,000 ML IV 1,000 ML ONE (19:16)
[2025-09-12] MEDS: ZOSYN VIAL 3.375 GRAMS IV ONE (19:16)
[2025-09-12] MEDS: DOPAMINE IV PREMIX 400 MG/250 ML 400 MG/250 ML BAG IV ONE (19:17)
[2025-09-12 20:31] LABS: CREATININE 1.44 mg/dL (0.55-1.02); eGFR NON BLACK RACES 40 (>60)
[2025-09-12 20:41] LABS: MEAN PLATELET VOLUME 7.9 fL (7.4-11.0); RED CELL DISTRIBUTION WIDTH 16.0 % (11.6-16.5)
[2025-09-12] MEDS: NS 1,000 ML IV 1,000 ML IV SCH (21:12)
[2025-09-12] MEDS: K-RIDER 10 MEQ/100 ML WATER 10 MEQ/100 ML BAG IV SCH ×2 (22:32→22:44)
[2025-09-12] MEDS: MAGNESIUM SULFATE 1 GRAM/100 mL PREMIX 1 G/100 ML BAG IV SCH (22:44)
[2025-09-12] MEDS ORDERED: TOBRAMYCIN SULFATE 320 MG in NS 100 ML IV 100 ML IV SCH (23:00)
[2025-09-13] MEDS: OFIRMEV IV 1000 MG VIAL 1,000 MG/100 ML VIAL IV PRN (04:53)
[2025-09-13 05:01] LABS: RED CELL DISTRIBUTION WIDTH 16.3 % (11.6-16.5)
[2025-09-13 05:10] LABS: MEAN PLATELET VOLUME 8.4 fL (7.4-11.0)
[2025-09-13 05:11] LABS: CHOL/HDL RATIO 1.9 (0.0-5.0); COR CA(FOR HYPOALB) 7.8 mg/dL (8.5-10.1); CREATININE 1.63 mg/dL (0.55-1.02); eGFR NON BLACK RACES 35 (>60)
[2025-09-13 05:58] LABS: ABG BASE EXCESS -4.6 mmol/L (-2.0-2.0); ABG HCO3 19.2 mmol/L (22-26); ABG OXYGEN SATURATION 99.0 % (90-100); ABG PCO2 31.0 mmHg (35.0-45.0); ABG PH 7.400 (7.35-7.45)
[2025-09-13 05:59] LABS: ABG PO2 124.0 mmHg (80.0-100.0)
--- NOTE | 2025-09-13 06:09 | RAD ---
EXAM: CHEST, 1 VIEW HISTORY: VENTILATOR PROTOCOL ; GERD, HTN, PUD, NEUROPATHY SX: APPY, RAVI, ORTHO, RIGHT LUMPECTOMY, ABD MESH, D&C COMPARISON: 09/12/2025 FINDINGS: The trachea is midline. Endotracheal tube tip above the kaitlyn. Nasogastric tube in the proximal stomach with side-hole near the GE junction. The tube should be advanced for more optimal placement. The cardiac silhouette is unremarkable . The lungs are clear without focal infiltrate or effusion. The bony thorax is unremarkable. IMPRESSION: No active cardiopulmonary disease. NG tube tip in the proximal stomach; the tube should be advanced for more optimal placement. THIS IS AN ELECTRONICALLY VERIFIED FINAL REPORT 09/13/2025 6:06 AM - Electronically signed by Josef Chavez MD
[2025-09-13] MEDS: MORPHINE SULFATE INJ 2 MG INJ IVP PRN (08:12)
[2025-09-13] MEDS: LOVENOX INJ 30 MG SYR SC SCH (08:17)
[2025-09-13] MEDS ORDERED: NS 1,000 ML IV 1,000 ML with POTASSIUM CHLORIDE INJ 10 MEQ VIAL 10 MEQ IV SCH (09:00)
--- NOTE | 2025-09-13 09:03 | DR.PROGNOT ---
HOSPITAL PROGRESS NOTE Progress Note for Day of: Progress Note Date: 09/13/25 Chief Complaint Chief Complaint: This 55-year-old female who is status post laparotomy, closure of perforated proximal sigmoid colon and completely diverting transverse colostomy . Patient was in septic shock secondary to fecal peritonitis from perforated sigmoid colon, she is still intubated and her blood pressure is maintained with Lopressor, patient is doing better than prior to surgery when she was very acidotic with renal failure and electrolyte imbalance in addition to hypoxia. Now her urine output is much better with about 30 cc an hour, BUN 21 and creatinine 1.6, normal liver function test, lactic acid was 7 before surgery and now it is 2.1, blood gas showed pH of 7.31 bicarb 19.2 base excess -4.6, PCO2 is 31 and pO2 124, Temperature 100.4, white count 3.6 hemoglobin 12.6, platelet count 220, PT and INR are normal, platelet count is normal. Patient is alert but still has heavily sedated, Will continue same treatment plan and attempt to wean off the respirator. Past Medical Family Social History Allergies: Allergies amoxicillin Adverse Reaction (Severe, Verified 09/12/25 09:51) ANAPHALEXIS REACTION Penicillins Adverse Reaction (Severe, Verified 09/12/25 09:51) ANAPHALEXIS REACTION codeine Adverse Reaction (Mild, Verified 09/12/25 09:51) RASH Vital Signs Vital Signs: Vital Signs Temperature 100.7 F Temperature 101.2 F Temperature 101.9 F Pulse Rate 123 Pulse Rate 122 Pulse Rate 122 Pulse Rate 124 Pulse Rate 124 Pulse Rate 126 Pulse Rate 128 Pulse Rate 128 Pulse Rate 127 Pulse Rate 127 Pulse Rate 127 Pulse Rate 123 Respiratory Rate 21 Respiratory Rate 21 Respiratory Rate 22 Respiratory Rate 23 Respiratory Rate 19 Respiratory Rate 19 Respiratory Rate 21 Respiratory Rate 20 Respiratory Rate 14 Respiratory Rate 19 Respiratory Rate 20 Respiratory Rate 17 Respiratory Rate 18 Respiratory Rate 14 Respiratory Rate 18 Blood Pressure 87/57 Blood Pressure 83/50 Blood Pressure 82/50 Blood Pressure 98/49 Blood Pressure 103/69 Blood Pressure 86/54 Blood Pressure 84/53 Blood Pressure 94/62 Blood Pressure 99/65 Blood Pressure 93/63 Blood Pressure 89/61 Blood Pressure 89/63 Blood Pressure 84/61 O2 Sat by Pulse Oximetry 100 O2 Sat by Pulse Oximetry 100 O2 Sat by Pulse Oximetry 100 O2 Sat by Pulse Oximetry 100 O2 Sat by Pulse Oximetry 100 O2 Sat by Pulse Oximetry 100 O2 Sat by Pulse Oximetry 100 O2 Sat by Pulse Oximetry 100 O2 Sat by Pulse Oximetry 100 O2 Sat by Pulse Oximetry 100 O2 Sat by Pulse Oximetry 100 O2 Sat by Pulse Oximetry 100 Physical Exam Oriented: Other (Response to verbal command) Eyes: Normal Nose: Normal Throat: Normal Respiratory: OTHER (On mechanical respirator) Cardiovascular: Tachycardia GI:Auscultation: Decreased GI: Tenderness: Diffuse (Abdomen is soft with diffuse tenderness) Speech Pattern: Artificially Ventilated Laboratory and Diagnostics 09/13/25 04:30 09/13/25 04:30 Labs: 09/12/25 09:57 Blood Blood Culture Gram Stain - Final 09/12/25 09:57 Blood Blood Culture - Preliminary Enterobacterales 09/12/25 15:46 Peritoneal Fluid Wound Gram Stain - Final 09/12/25 15:28 Peritoneal Fluid Wound Gram Stain - Final Laboratory WBC 3.6 X10^3/uL (3.6-10.0) 09/13/25 04:30 RBC 4.61 X10^6/uL (3.5-5.4) 09/13/25 04:30 Hgb 12.6 g/dL (12.0-16.0) 09/13/25 04:30 Hct 37.7 % (36.0-47.0) 09/13/25 04:30 MCV 81.8 fL (80.0-100.0) 09/13/25 04:30 MCH 27.4 pg (27.0-34.0) 09/13/25 04:30 MCHC 33.5 g/dL (33.0-35.0) 09/13/25 04:30 RDW 16.3 % (11.6-16.5) 09/13/25 04:30 Plt Count 220 X10^3/uL (150.0-450.0) 09/13/25 04:30 MPV 8.4 fL (7.4-11.0) 09/13/25 04:30 Neut % (Auto) 83.9 % (42.0-75.0) H 09/13/25 04:30 Lymph % (Auto) 7.6 % (21.0-51.0) L 09/13/25 04:30 [place] % (Auto) 6.4 % (0.0-13.0) 09/13/25 04:30 Eos % (Auto) 1.6 % (0.9-2.9) 09/13/25 04:30 Baso % (Auto) 0.5 % (0.2-1.0) 09/13/25 04:30 Neut # (Auto) 3.0 x10^3/uL (2.2-4.8) 09/13/25 04:30 Lymph # (Auto) 0.3 X10^3/uL (1.3-2.9) L 09/13/25 04:30 [place] # (Auto) 0.2 x10^3/uL (0.3-0.8) L 09/13/25 04:30 Eos # (Auto) 0.1 x10^3/uL (0.0-0.2) 09/13/25 04:30 Baso # (Auto) 0.0 X10^3/uL (0.0-0.1) 09/13/25 04:30 Absolute Nucleated RBC 0.1 /100WBC 09/13/25 04:30 PT 14.0 SECONDS (11.8-14.3) 09/12/25 09:57 INR Target Range - 09/12/25 09:57 INR 1.07 (0.8-1.3) 09/12/25 09:57 APTT 27.1 SECONDS (22.9-36.5) 09/12/25 09:57 PTT Comment - 09/12/25 09:57 Sample Site Art-line 09/13/25 05:56 ABG pH 7.400 (7.35-7.45) 09/13/25 05:56 ABG pCO2 31.0 mmHg (35.0-45.0) L 09/13/25 05:56 ABG pO2 124.0 mmHg (80.0-100.0) H 09/13/25 05:56 ABG HCO3 19.2 mmol/L (22-26) L 09/13/25 05:56 ABG O2 Saturation 99.0 % (90-100) 09/13/25 05:56 ABG Base Excess -4.6 mmol/L (-2.0-2.0) L 09/13/25 05:56 Kevin Test Na 09/13/25 05:56 A-a Gradient 194.0 mmHg 09/13/25 05:56 FiO2 50.0 09/13/25 05:56 Blood Gas Comments Elina well 09/13/25 05:56 Sodium 142 mmol/L (136-145) 09/13/25 04:30 Corrected Sodium TNP 09/13/25 04:30 Potassium 3.9 mmol/L (3.5-5.1) 09/13/25 04:30 Chloride 110 mmol/L (98-107) H 09/13/25 04:30 Carbon Dioxide 21.7 mmol/L (21-32) 09/13/25 04:30 BUN 21 mg/dL (7-18) H 09/13/25 04:30 Creatinine 1.63 mg/dL (0.55-1.02) H 09/13/25 04:30 Est GFR (MDRD) Af Amer 42 (>60) L 09/13/25 04:30 Est GFR (MDRD) Non-Af 35 (>60) L 09/13/25 04:30 Glucose 110 mg/dL (65-99) H 09/13/25 04:30 Lactic Acid 2.1 mmol/L (0.4-2.0) H 09/13/25 04:30 Calcium 7.0 mg/dL (8.5-10.1) L 09/13/25 04:30 Corrected Calcium 7.8 mg/dL (8.5-10.1) L 09/13/25 04:30 Magnesium 2.3 mg/dL (2.0-2.9) 09/13/25 04:30 Total Bilirubin 0.40 mg/dL (0.2-1.0) 09/13/25 04:30 AST 29 Units/L (15-37) 09/13/25 04:30 ALT 17 Units/L (12-78) 09/13/25 04:30 Alkaline Phosphatase 72 Units/L (46-116) 09/13/25 04:30 Troponin I High Sens 33.8 ng/L (4.0-60.0) 09/12/25 11:55 Total Protein 4.8 g/dL (6.4-8.2) L 09/13/25 04:30 Albumin 3.0 g/dL (3.4-5.0) L 09/13/25 04:30 Globulin 1.8 g/dL (2.5-4.5) L 09/13/25 04:30 Albumin/Globulin Ratio 1.7 Ratio (1.1-2.1) 09/13/25 04:30 Triglycerides 103 mg/dL (0-150) 09/13/25 04:30 Cholesterol < 50 mg/dL (0-200) 09/13/25 04:30 LDL Cholesterol, Calc 3 mg/dL (0-100) 09/13/25 04:30 HDL Cholesterol 26 mg/dL (40-60) L 09/13/25 04:30 Cholesterol/HDL Ratio 1.9 (0.0-5.0) 09/13/25 04:30 Amylase 215 Units/L (25-115) H 09/12/25 09:57 Lipase 26 Units/L (16-77) 09/12/25 09:57 Specimen Type Catherized urine 09/12/25 11:19 Urine Color Dark yellow (YELLOW) 09/12/25 11:19 Urine Appearance Clear (CLEAR) 09/12/25 11:19 Urine pH 5.0 (5.0 - 8.0) 09/12/25 11:19 Ur Specific [place] 1.025 (1.000-1.030) 09/12/25 11:19 Urine Protein 3+ (NEGATIVE) 09/12/25 11:19 Urine Glucose (UA) Negative (NEGATIVE) 09/12/25 11:19 Urine Ketones Negative (NEGATIVE) 09/12/25 11:19 Urine Blood 1+ (NEGATIVE) 09/12/25 11:19 Urine Nitrite Negative (NEGATIVE) 09/12/25 11:19 Urine Bilirubin 1+ (NEGATIVE) 09/12/25 11:19 Urine Urobilinogen 1+ (NORMAL) 09/12/25 11:19 Ur Leukocyte Esterase 1+ (NEGATIVE) 09/12/25 11:19 Urine RBC 5-10 /HPF (0-3) A 09/12/25 11:19 Urine WBC 0-2 /HPF (0-5) 09/12/25 11:19 Ur Squamous Epith Cells Rare /HPF (NEGATIVE) 09/12/25 11:19 Amorphous Sediment Trace /HPF (NEGATIVE) 09/12/25 11:19 Urine Bacteria Trace /HPF (NEGATIVE) 09/12/25 11:19 Ur Culture Indicated? Yes/culture set up 09/12/25 11:19 Blood Type O POSITIVE 09/12/25 14:49 Antibody Screen Negative 09/12/25 14:49 Assessment and Plan 1: Septic shock secondary to perforated sigmoid colon with fecal peritonitis. Status post laparotomy, closure of perforated sigmoid colon, diverting colostomy, thorough irrigation and drainage of the peritoneum. Patient is . still intubated and on Lopressor On IV antibiotics and supportive care Problem Patient Problems: Patient Problems Tachycardia (Acute) R00.0 Hypotension (Acute) I95.9 Sepsis (Acute) A41.9 Perforated small intestine (Acute) K63.1
[2025-09-13] MEDS: VANCOMYCIN IV *PREMIX 1 G/200 ML BAG 1 G/200 ML PIGGYBACK IV SCH (09:17)
[2025-09-13] MEDS: BENADRYL INJ 50 MG VIAL IVP ONE (09:51)
[2025-09-13] MEDS: LEVAQUIN PREMIX IV 750 MG 750 MG/150 ML BAG IV SCH (11:42)
[2025-09-13 13:04] LABS: COR CA(FOR HYPOALB) 8.1 mg/dL (8.5-10.1); CREATININE 1.78 mg/dL (0.55-1.02); eGFR NON BLACK RACES 31 (>60)
[2025-09-13 13:59] LABS: ABG BASE EXCESS -5.6 mmol/L (-2.0-2.0); ABG HCO3 18.0 mmol/L (22-26); ABG OXYGEN SATURATION 95.0 % (90-100); ABG PCO2 29.0 mmHg (35.0-45.0); ABG PH 7.400 (7.35-7.45); ABG PO2 77.0 mmHg (80.0-100.0)
[2025-09-13] MEDS: TORADOL 30 MG VIAL IVP PRN (15:35)
[2025-09-13] MEDS: COLACE SYRUP 100 MG UDC PO SCH (21:21)
[2025-09-13] MEDS: ULTRAM PO SCH (21:23)
[2025-09-14 05:21] LABS: MEAN PLATELET VOLUME 8.8 fL (7.4-11.0)
[2025-09-14 05:24] LABS: ABG ALLEN TEST POS; ABG BASE EXCESS -2.3 mmol/L (-2.0-2.0); ABG HCO3 22.5 mmol/L (22-26); ABG OXYGEN SATURATION 96.0 % (90-100); ABG PCO2 38.0 mmHg (35.0-45.0); ABG PH 7.380 (7.35-7.45); ABG PO2 81.0 mmHg (80.0-100.0)
[2025-09-14 05:31] LABS: COR CA(FOR HYPOALB) 8.8 mg/dL (8.5-10.1); CREATININE 1.01 mg/dL (0.55-1.02); eGFR NON BLACK RACES > 60 (>60)
[2025-09-14 05:33] LABS: RED CELL DISTRIBUTION WIDTH 16.3 % (11.6-16.5)
[2025-09-14] MEDS: D50W ABBOJECT SYR IV ONE ×3 (05:59→10:32)
--- NOTE | 2025-09-14 05:59 | RAD ---
EXAM: CHEST, 1 VIEW HISTORY: POST OP PNEUMONIA; ARTHRITIS, GERD, HTN, PUD, NEUROPATHY, BREAST CA SX: APPY, RAVI, ORTHO, RIGHT LUMPECTOMY, ABD MESH, D&C COMPARISON: 09/05/2025 FINDINGS: The trachea is midline. The endotracheal tube has been removed. NG tube tip remains within the stomach. There is a right IJ central line with tip in the SVC. The cardiac silhouette is unremarkable. There is blunting of the left costophrenic angle due to small pleural effusion and/or pleural thickening.. The bony thorax is unremarkable. IMPRESSION: No acute cardiopulmonary disease. THIS IS AN ELECTRONICALLY VERIFIED FINAL REPORT 09/14/2025 5:56 AM - Electronically signed by Josef Chavez MD
[2025-09-14 06:02] LABS: BAND NEUTROPHILS % 8 % (0-10); METAMYELOCYTES % 3; MYELOCYTES % 2; PLATELET MORPHOLOGY COMMENT NORMAL (NORMAL)
[2025-09-14] MEDS ORDERED: D50W ABBOJECT SYR ONE (06:54)
[2025-09-14] MEDS: INVanz INJ 1 GRAM VIAL 1 G in NS 100 ML IV 100 ML IV SCH (08:41)
[2025-09-14] MEDS ORDERED: D5 NS 1,000 ML IV 1,000 ML IV SCH (09:00)
[2025-09-14] MEDS ORDERED: LEVAQUIN PREMIX IV 750 MG 750 MG/150 ML BAG IV SCH (09:00)
[2025-09-14] MEDS: VANCOMYCIN IV *PREMIX 1 G/200 ML BAG 1 G/200 ML PIGGYBACK IV SCH (09:41)
[2025-09-14] MEDS: DEXTROSE 10% 1,000 ML IV SCH (09:54)
[2025-09-14] MEDS: LR 1,000 ML IV 1,000 ML IV SCH (09:54)
--- NOTE | 2025-09-14 10:14 | DR.PROGNOT ---
HOSPITAL PROGRESS NOTE Progress Note for Day of: Progress Note Date: 09/14/25 Chief Complaint Chief Complaint: Postop day 2. Patient is alert and cooperative, able to maintain her blood pressure without any pressors. Good urine output, minimal drainage in KHRIS, less drainage and NG tube. pH is 7.38, pCO2 38, O2 81, HCO3 22.5, base excess -2.3. WBC 3.2, BUN 22 and creatinine 1.01, blood sugar was low earlier on down to 41 and now it is 51 after giving the patient D50 and now she is on the D10 100 cc an hour, lactic acid is down to 1.4, albumin 2.5. Blood pressure is 114/67 and pulse is 121 Patient is recovering from septic shock, she is well-hydrated now with minimal systemic damage and seems to be on her way for recovery. Past Medical Family Social History Allergies: Allergies amoxicillin Adverse Reaction (Severe, Verified 09/12/25 09:51) ANAPHALEXIS REACTION Penicillins Adverse Reaction (Severe, Verified 09/12/25 09:51) ANAPHALEXIS REACTION codeine Adverse Reaction (Mild, Verified 09/12/25 09:51) RASH Vital Signs Vital Signs: Vital Signs Temperature 98.0 F Pulse Rate 121 Pulse Rate 122 Pulse Rate 121 Pulse Rate 125 Pulse Rate 120 Pulse Rate 121 Pulse Rate 121 Pulse Rate 120 Pulse Rate 120 Pulse Rate 121 Pulse Rate 122 Pulse Rate 122 Pulse Rate 118 Pulse Rate 119 Pulse Rate 119 Pulse Rate 119 Pulse Rate 119 Pulse Rate 122 Pulse Rate 125 Pulse Rate 121 Respiratory Rate 18 Respiratory Rate 20 Respiratory Rate 18 Respiratory Rate 21 Respiratory Rate 27 Respiratory Rate 14 Respiratory Rate 21 Respiratory Rate 20 Respiratory Rate 26 Respiratory Rate 20 Respiratory Rate 23 Respiratory Rate 22 Respiratory Rate 35 Respiratory Rate 28 Respiratory Rate 29 Respiratory Rate 24 Respiratory Rate 27 Respiratory Rate 31 Respiratory Rate 20 Respiratory Rate 29 Respiratory Rate 25 Respiratory Rate 24 Respiratory Rate 29 Respiratory Rate 28 Respiratory Rate 22 Blood Pressure 114/67 Blood Pressure 114/67 Blood Pressure 107/61 Blood Pressure 143/69 Blood Pressure 155/79 Blood Pressure 117/71 Blood Pressure 111/63 Blood Pressure 112/66 Blood Pressure 113/64 Blood Pressure 118/68 Blood Pressure 113/66 Blood Pressure 137/75 O2 Sat by Pulse Oximetry 98 O2 Sat by Pulse Oximetry 96 O2 Sat by Pulse Oximetry 98 O2 Sat by Pulse Oximetry 100 O2 Sat by Pulse Oximetry 100 O2 Sat by Pulse Oximetry 99 O2 Sat by Pulse Oximetry 98 O2 Sat by Pulse Oximetry 100 O2 Sat by Pulse Oximetry 98 O2 Sat by Pulse Oximetry 99 O2 Sat by Pulse Oximetry 98 O2 Sat by Pulse Oximetry 98 O2 Sat by Pulse Oximetry 96 O2 Sat by Pulse Oximetry 98 O2 Sat by Pulse Oximetry 100 O2 Sat by Pulse Oximetry 98 O2 Sat by Pulse Oximetry 99 O2 Sat by Pulse Oximetry 96 O2 Sat by Pulse Oximetry 96 O2 Sat by Pulse Oximetry 98 Physical Exam Oriented: Normal Eyes: Normal Ear: Normal Nose: Normal Throat: Normal Respiratory: Normal Cardiovascular: Tachycardia GI:Auscultation: Decreased GI:Palpation: Other (Diffuse tenderness with hypoactive bowel sounds) GI: Tenderness: Diffuse (Abdomen is soft with diffuse tenderness) Speech Pattern: Clear and Appropriate Laboratory and Diagnostics 09/14/25 04:18 09/14/25 07:00 Labs: 09/13/25 08:09 Sputum - Endotracheal Wash Sputum Culture - Preliminary 09/13/25 08:09 Sputum - Endotracheal Wash - Final 09/12/25 11:19 Urine,Catheterized Urine Culture - Final 09/12/25 15:28 Peritoneal Fluid Wound Gram Stain - Final 09/12/25 15:28 Peritoneal Fluid Wound Culture - Preliminary Escherichia Coli 09/12/25 15:46 Peritoneal Fluid Wound Gram Stain - Final 09/12/25 15:46 Peritoneal Fluid Wound Culture - Preliminary Escherichia Coli 09/12/25 10:30 Blood Blood Culture Gram Stain - Final 09/12/25 10:30 Blood Blood Culture - Final Escherichia Coli 09/12/25 09:57 Blood Blood Culture Gram Stain - Final 09/12/25 09:57 Blood Blood Culture - Final Escherichia Coli Laboratory WBC 3.2 X10^3/uL (3.6-10.0) L 09/14/25 04:18 RBC 4.58 X10^6/uL (3.5-5.4) 09/14/25 04:18 Hgb 12.6 g/dL (12.0-16.0) 09/14/25 04:18 Hct 37.1 % (36.0-47.0) 09/14/25 04:18 MCV 81.0 fL (80.0-100.0) 09/14/25 04:18 MCH 27.4 pg (27.0-34.0) 09/14/25 04:18 MCHC 33.9 g/dL (33.0-35.0) 09/14/25 04:18 RDW 16.3 % (11.6-16.5) 09/14/25 04:18 Plt Count 135 X10^3/uL (150.0-450.0) L 09/14/25 04:18 Plt Count Comment Decreased (ADEQUATE) A 09/14/25 04:18 MPV 8.8 fL (7.4-11.0) 09/14/25 04:18 Neut % (Auto) 88.6 % (42.0-75.0) H 09/14/25 04:18 Lymph % (Auto) 7.2 % (21.0-51.0) L 09/14/25 04:18 [place] % (Auto) 3.1 % (0.0-13.0) 09/14/25 04:18 Eos % (Auto) 0.6 % (0.9-2.9) L 09/14/25 04:18 Baso % (Auto) 0.5 % (0.2-1.0) 09/14/25 04:18 Neut # (Auto) 2.8 x10^3/uL (2.2-4.8) 09/14/25 04:18 Lymph # (Auto) 0.2 X10^3/uL (1.3-2.9) L 09/14/25 04:18 [place] # (Auto) 0.1 x10^3/uL (0.3-0.8) L 09/14/25 04:18 Eos # (Auto) 0.0 x10^3/uL (0.0-0.2) 09/14/25 04:18 Baso # (Auto) 0.0 X10^3/uL (0.0-0.1) 09/14/25 04:18 Absolute Nucleated RBC 0.1 /100WBC 09/14/25 04:18 Total Counted 100 09/14/25 04:18 Neutrophils % (Manual) 75 % (39-76) 09/14/25 04:18 Band Neutrophils % 8 % (0-10) 09/14/25 04:18 Lymphocytes % (Manual) 8 % (13-43) L 09/14/25 04:18 Monocytes % (Manual) 4 % (4-9) 09/14/25 04:18 Metamyelocytes % 3 09/14/25 04:18 Myelocytes % 2 09/14/25 04:18 Plt Morphology Comment Normal (NORMAL) 09/14/25 04:18 RBC Morphology Normal (NORMAL) 09/14/25 04:18 PT 14.0 SECONDS (11.8-14.3) 09/12/25 09:57 INR Target Range - 09/12/25 09:57 INR 1.07 (0.8-1.3) 09/12/25 09:57 APTT 27.1 SECONDS (22.9-36.5) 09/12/25 09:57 PTT Comment - 09/12/25 09:57 Sample Site A-line 09/14/25 05:20 ABG pH 7.380 (7.35-7.45) 09/14/25 05:20 ABG pCO2 38.0 mmHg (35.0-45.0) 09/14/25 05:20 ABG pO2 81.0 mmHg (80.0-100.0) 09/14/25 05:20 ABG HCO3 22.5 mmol/L (22-26) 09/14/25 05:20 ABG O2 Saturation 96.0 % (90-100) 09/14/25 05:20 ABG Base Excess -2.3 mmol/L (-2.0-2.0) L 09/14/25 05:20 Kevin Test Pos 09/14/25 05:20 A-a Gradient 71.0 mmHg 09/14/25 05:20 FiO2 28.0 09/14/25 05:20 Blood Gas Comments Elina well 09/14/25 05:20 Sodium 144 mmol/L (136-145) 09/14/25 04:18 Corrected Sodium TNP 09/14/25 04:18 Potassium 3.7 mmol/L (3.5-5.1) 09/14/25 04:18 Chloride 110 mmol/L (98-107) H 09/14/25 04:18 Carbon Dioxide 24.8 mmol/L (21-32) 09/14/25 04:18 BUN 22 mg/dL (7-18) H 09/14/25 04:18 Creatinine 1.01 mg/dL (0.55-1.02) 09/14/25 04:18 Est GFR (MDRD) Af Amer > 60 (>60) 09/14/25 04:18 Est GFR (MDRD) Non-Af > 60 (>60) 09/14/25 04:18 Glucose 51 mg/dL (65-99) L 09/14/25 07:00 POC Glucose (mg/dL) 49 mg/dL (65-99) 09/14/25 09:33 Lactic Acid 1.4 mmol/L (0.4-2.0) 09/14/25 05:56 Calcium 7.6 mg/dL (8.5-10.1) L 09/14/25 04:18 Corrected Calcium 8.8 mg/dL (8.5-10.1) 09/14/25 04:18 Magnesium 2.3 mg/dL (2.0-2.9) 09/14/25 04:18 Total Bilirubin 0.50 mg/dL (0.2-1.0) 09/14/25 04:18 AST 73 Units/L (15-37) H 09/14/25 04:18 ALT 30 Units/L (12-78) 09/14/25 04:18 Alkaline Phosphatase 105 Units/L (46-116) 09/14/25 04:18 Troponin I High Sens 33.8 ng/L (4.0-60.0) 09/12/25 11:55 Total Protein 5.0 g/dL (6.4-8.2) L 09/14/25 04:18 Albumin 2.5 g/dL (3.4-5.0) L 09/14/25 04:18 Globulin 2.5 g/dL (2.5-4.5) 09/14/25 04:18 Albumin/Globulin Ratio 1.0 Ratio (1.1-2.1) L 09/14/25 04:18 Triglycerides 103 mg/dL (0-150) 09/13/25 04:30 Cholesterol < 50 mg/dL (0-200) 09/13/25 04:30 LDL Cholesterol, Calc 3 mg/dL (0-100) 09/13/25 04:30 HDL Cholesterol 26 mg/dL (40-60) L 09/13/25 04:30 Cholesterol/HDL Ratio 1.9 (0.0-5.0) 09/13/25 04:30 Amylase 215 Units/L (25-115) H 09/12/25 09:57 Lipase 26 Units/L (16-77) 09/12/25 09:57 Specimen Type Catherized urine 09/12/25 11:19 Urine Color Dark yellow (YELLOW) 09/12/25 11:19 Urine Appearance Clear (CLEAR) 09/12/25 11:19 Urine pH 5.0 (5.0 - 8.0) 09/12/25 11:19 Ur Specific [place] 1.025 (1.000-1.030) 09/12/25 11:19 Urine Protein 3+ (NEGATIVE) 09/12/25 11:19 Urine Glucose (UA) Negative (NEGATIVE) 09/12/25 11:19 Urine Ketones Negative (NEGATIVE) 09/12/25 11:19 Urine Blood 1+ (NEGATIVE) 09/12/25 11:19 Urine Nitrite Negative (NEGATIVE) 09/12/25 11:19 Urine Bilirubin 1+ (NEGATIVE) 09/12/25 11:19 Urine Urobilinogen 1+ (NORMAL) 09/12/25 11:19 Ur Leukocyte Esterase 1+ (NEGATIVE) 09/12/25 11:19 Urine RBC 5-10 /HPF (0-3) A 09/12/25 11:19 Urine WBC 0-2 /HPF (0-5) 09/12/25 11:19 Ur Squamous Epith Cells Rare /HPF (NEGATIVE) 09/12/25 11:19 Amorphous Sediment Trace /HPF (NEGATIVE) 09/12/25 11:19 Urine Bacteria Trace /HPF (NEGATIVE) 09/12/25 11:19 Ur Culture Indicated? Yes/culture set up 09/12/25 11:19 Random Vancomycin 6.0 ug/mL 09/13/25 08:23 Blood Type O POSITIVE 09/12/25 14:49 Antibody Screen Negative 09/12/25 14:49 Assessment and Plan 1: Septic shock secondary to perforated sigmoid colon with fecal peritonitis. Status post laparotomy, closure of perforated sigmoid colon, diverting colostomy, thorough irrigation and drainage of the peritoneum. Patient is out of her septic shock, maintaining her blood pressure and oxygenation, good urine output with almost back to normal renal function. Cardiac status is maintained without pressors. Episode of hypoglycemia this morning required adding D50 and will keep the patient on the D10 at the 100 cc/h for now. Same IV antibiotics to cover gram-negative rods which was positive in the blood culture. Same postoperative care including DVT prophylaxis, SCDs, incentive spirometer, and out of bed with binder. Same IV Protonix Problem Patient Problems: Patient Problems Tachycardia (Acute) R00.0 Hypotension (Acute) I95.9 Sepsis (Acute) A41.9 Perforated small intestine (Acute) K63.1
[2025-09-14] MEDS ORDERED: PHARMACY CONSULT - MEROPENEM XX SCH (15:45)
[2025-09-14] MEDS: FORTAZ or TAZICEF VIAL INJ 1 G in NS 100 ML IV 100 ML IV SCH (16:25)
[2025-09-14] MEDS: VALIUM INJ IVP PRN (21:29)
[2025-09-15] MEDS: D50W ABBOJECT SYR IV ONE (04:06)
[2025-09-15 04:24] LABS: INR 1.18 (0.8-1.3)
[2025-09-15 04:29] LABS: COR CA(FOR HYPOALB) 9.3 mg/dL (8.5-10.1); CREATININE 0.80 mg/dL (0.55-1.02); eGFR NON BLACK RACES > 60 (>60)
[2025-09-15 04:32] LABS: ABG BASE EXCESS 3.1 mmol/L (-2.0-2.0); ABG HCO3 27.0 mmol/L (22-26); ABG OXYGEN SATURATION 94.0 % (90-100); ABG PCO2 38.0 mmHg (35.0-45.0); ABG PH 7.460 (7.35-7.45); ABG PO2 68.0 mmHg (80.0-100.0)
[2025-09-15 04:37] LABS: MEAN PLATELET VOLUME 9.0 fL (7.4-11.0); RED CELL DISTRIBUTION WIDTH 16.1 % (11.6-16.5)
[2025-09-15 04:57] LABS: BAND NEUTROPHILS % 9 % (0-10); METAMYELOCYTES % 2; MYELOCYTES % 2; PLATELET MORPHOLOGY COMMENT NORMAL (NORMAL)
[2025-09-15] MEDS ORDERED: CONSULT PHARMACY - POTASSIUM & MAGNESIUM XX SCH (05:00)
--- NOTE | 2025-09-15 07:38 | RAD ---
EXAMINATION: CHEST, 1 VIEW HISTORY: POST VENT PNEUMONIA ; ARTHRITIS, GERD, HTN, PUD, NEUROPATHY, BREAST CA SX: APPY, RAVI, ORTHO, RIGHT LUMPECTOMY, ABD MESH, D&C . COMPARISON STUDY: Chest x-ray 09/14/2025 TECHNIQUE: Single AP view of the chest FINDINGS: Lungs are expanded. Bibasilar opacities. Mild cardiac silhouette enlargement. Normal pulmonary vascular pattern. Right IJ line with distal catheter along the SVC/upper right pulmonary hilum. Distal portion of the nasogastric tube is partially imaged in the left upper abdomen. Bones appear intact. IMPRESSION: Bibasilar opacities. Mild cardiac silhouette enlargement. THIS IS AN ELECTRONICALLY VERIFIED FINAL REPORT 09/15/2025 7:34 AM - Electronically signed by Elisabeth Aguirre MD
--- NOTE | 2025-09-15 08:47 | DR.PROGNOT ---
HOSPITAL PROGRESS NOTE Progress Note for Day of: Progress Note Date: 09/15/25 Chief Complaint Chief Complaint: Postop day 3. Patient is alert and cooperative, able to maintain her blood pressure without any pressors. Good urine output, minimal drainage in KHRIS, less drainage and NG tube. pH is 7.46, pCO2 38, O2 68, HCO3 22.5, base excess -2.3. WBC 72, BUN 22 and creatinine 1.01, blood sugar was low earlier on down to 30 at night and now it is 122 after giving the patient D50 , still on now D10 100 cc an hour, lactic acid is normal Blood pressure is 114/67 and pulse is 121 Patient is recovering from septic shock, she is well-hydrated now with minimal systemic damage and seems to be on her way for recovery. Past Medical Family Social History Allergies: Allergies amoxicillin Adverse Reaction (Severe, Verified 09/12/25 09:51) ANAPHALEXIS REACTION Penicillins Adverse Reaction (Severe, Verified 09/12/25 09:51) ANAPHALEXIS REACTION codeine Adverse Reaction (Mild, Verified 09/12/25 09:51) RASH Vital Signs Vital Signs: Vital Signs Temperature 98.3 F Pulse Rate 110 Pulse Rate 111 Pulse Rate 119 Pulse Rate 115 Pulse Rate 113 Pulse Rate 118 Pulse Rate 113 Pulse Rate 114 Pulse Rate 107 Pulse Rate 114 Pulse Rate 115 Pulse Rate 115 Pulse Rate 114 Pulse Rate 112 Pulse Rate 112 Pulse Rate 114 Pulse Rate 118 Pulse Rate 110 Pulse Rate 111 Pulse Rate 105 Pulse Rate 110 Pulse Rate 114 Pulse Rate 112 Pulse Rate 113 Respiratory Rate 23 Respiratory Rate 21 Respiratory Rate 22 Respiratory Rate 23 Respiratory Rate 24 Respiratory Rate 27 Respiratory Rate 31 Respiratory Rate 23 Respiratory Rate 28 Respiratory Rate 23 Respiratory Rate 23 Respiratory Rate 29 Respiratory Rate 26 Respiratory Rate 25 Respiratory Rate 21 Respiratory Rate 22 Respiratory Rate 26 Respiratory Rate 21 Respiratory Rate 19 Respiratory Rate 20 Respiratory Rate 21 Respiratory Rate 26 Respiratory Rate 19 Respiratory Rate 21 Blood Pressure 139/72 Blood Pressure 136/70 Blood Pressure 136/60 Blood Pressure 136/70 Blood Pressure 136/77 Blood Pressure 127/73 Blood Pressure 141/75 O2 Sat by Pulse Oximetry 100 O2 Sat by Pulse Oximetry 100 O2 Sat by Pulse Oximetry 100 O2 Sat by Pulse Oximetry 100 O2 Sat by Pulse Oximetry 99 O2 Sat by Pulse Oximetry 100 O2 Sat by Pulse Oximetry 99 O2 Sat by Pulse Oximetry 100 O2 Sat by Pulse Oximetry 98 O2 Sat by Pulse Oximetry 100 O2 Sat by Pulse Oximetry 100 O2 Sat by Pulse Oximetry 100 O2 Sat by Pulse Oximetry 100 O2 Sat by Pulse Oximetry 100 O2 Sat by Pulse Oximetry 100 O2 Sat by Pulse Oximetry 100 O2 Sat by Pulse Oximetry 100 O2 Sat by Pulse Oximetry 100 O2 Sat by Pulse Oximetry 100 O2 Sat by Pulse Oximetry 100 O2 Sat by Pulse Oximetry 100 O2 Sat by Pulse Oximetry 99 O2 Sat by Pulse Oximetry 100 O2 Sat by Pulse Oximetry 100 Physical Exam Oriented: Normal Eyes: Normal Ear: Normal Nose: Normal Throat: Normal Respiratory: Normal Cardiovascular: Tachycardia GI:Auscultation: Decreased GI:Palpation: Other (Diffuse tenderness with hypoactive bowel sounds) GI: Tenderness: Diffuse (Abdomen is soft with diffuse tenderness) Speech Pattern: Clear and Appropriate Laboratory and Diagnostics 09/15/25 04:02 09/15/25 04:02 Labs: 09/12/25 15:46 Peritoneal Fluid Wound Gram Stain - Final 09/12/25 15:46 Peritoneal Fluid Wound Culture - Final Escherichia Coli 09/12/25 15:28 Peritoneal Fluid Wound Gram Stain - Final 09/12/25 15:28 Peritoneal Fluid Wound Culture - Final Escherichia Coli 09/13/25 08:09 Sputum - Endotracheal Wash Sputum Culture - Preliminary 09/13/25 08:09 Sputum - Endotracheal Wash - Final 09/12/25 11:19 Urine,Catheterized Urine Culture - Final 09/12/25 10:30 Blood Blood Culture Gram Stain - Final 09/12/25 10:30 Blood Blood Culture - Final Escherichia Coli 09/12/25 09:57 Blood Blood Culture Gram Stain - Final 09/12/25 09:57 Blood Blood Culture - Final Escherichia Coli Laboratory WBC 7.1 X10^3/uL (3.6-10.0) 09/15/25 04:02 RBC 4.43 X10^6/uL (3.5-5.4) 09/15/25 04:02 Hgb 12.1 g/dL (12.0-16.0) 09/15/25 04:02 Hct 35.6 % (36.0-47.0) L 09/15/25 04:02 MCV 80.2 fL (80.0-100.0) 09/15/25 04:02 MCH 27.2 pg (27.0-34.0) 09/15/25 04:02 MCHC 33.9 g/dL (33.0-35.0) 09/15/25 04:02 RDW 16.1 % (11.6-16.5) 09/15/25 04:02 Plt Count 79 X10^3/uL (150.0-450.0) L 09/15/25 04:02 Plt Count Comment Decreased (ADEQUATE) A 09/15/25 04:02 MPV 9.0 fL (7.4-11.0) 09/15/25 04:02 Neut % (Auto) 94.4 % (42.0-75.0) H 09/15/25 04:02 Lymph % (Auto) 2.9 % (21.0-51.0) L 09/15/25 04:02 [place] % (Auto) 1.0 % (0.0-13.0) 09/15/25 04:02 Eos % (Auto) 0.5 % (0.9-2.9) L 09/15/25 04:02 Baso % (Auto) 1.2 % (0.2-1.0) H 09/15/25 04:02 Neut # (Auto) 6.7 x10^3/uL (2.2-4.8) H 09/15/25 04:02 Lymph # (Auto) 0.2 X10^3/uL (1.3-2.9) L 09/15/25 04:02 [place] # (Auto) 0.1 x10^3/uL (0.3-0.8) L 09/15/25 04:02 Eos # (Auto) 0.0 x10^3/uL (0.0-0.2) 09/15/25 04:02 Baso # (Auto) 0.1 X10^3/uL (0.0-0.1) 09/15/25 04:02 Absolute Nucleated RBC 0.3 /100WBC 09/15/25 04:02 Total Counted 100 09/15/25 04:02 Neutrophils % (Manual) 73 % (39-76) 09/15/25 04:02 Band Neutrophils % 9 % (0-10) 09/15/25 04:02 Lymphocytes % (Manual) 9 % (13-43) L 09/15/25 04:02 Monocytes % (Manual) 4 % (4-9) 09/15/25 04:02 Eosinophils % (Manual) 1 % (0-6) 09/15/25 04:02 Metamyelocytes % 2 09/15/25 04:02 Myelocytes % 2 09/15/25 04:02 Plt Morphology Comment Normal (NORMAL) 09/15/25 04:02 RBC Morphology Normal (NORMAL) 09/15/25 04:02 PT 15.1 SECONDS (11.8-14.3) 09/15/25 04:02 INR Target Range - 09/15/25 04:02 INR 1.18 (0.8-1.3) 09/15/25 04:02 APTT 27.1 SECONDS (22.9-36.5) 09/12/25 09:57 PTT Comment - 09/12/25 09:57 Sample Site [place] 09/15/25 04:25 ABG pH 7.460 (7.35-7.45) H 09/15/25 04:25 ABG pCO2 38.0 mmHg (35.0-45.0) 09/15/25 04:25 ABG pO2 68.0 mmHg (80.0-100.0) L 09/15/25 04:25 ABG HCO3 27.0 mmol/L (22-26) H 09/15/25 04:25 ABG O2 Saturation 94.0 % (90-100) 09/15/25 04:25 ABG Base Excess 3.1 mmol/L (-2.0-2.0) H 09/15/25 04:25 Kevin Test N/a 09/15/25 04:25 A-a Gradient 84.0 mmHg 09/15/25 04:25 FiO2 28.0 09/15/25 04:25 Blood Gas Comments [place] well ae 09/15/25 04:25 Sodium 141 mmol/L (136-145) 09/15/25 04:02 Corrected Sodium TNP 09/15/25 04:02 Potassium 2.7 mmol/L (3.5-5.1) L* 09/15/25 04:02 Chloride 104 mmol/L (98-107) 09/15/25 04:02 Carbon Dioxide 26.5 mmol/L (21-32) 09/15/25 04:02 BUN 16 mg/dL (7-18) 09/15/25 04:02 Creatinine 0.80 mg/dL (0.55-1.02) 09/15/25 04:02 Est GFR (MDRD) Af Amer > 60 (>60) 09/15/25 04:02 Est GFR (MDRD) Non-Af > 60 (>60) 09/15/25 04:02 Glucose 98 mg/dL (65-99) 09/15/25 04:02 POC Glucose (mg/dL) 87 mg/dL (65-99) 09/15/25 06:06 Lactic Acid 1.4 mmol/L (0.4-2.0) 09/14/25 05:56 Calcium 7.9 mg/dL (8.5-10.1) L 09/15/25 04:02 Corrected Calcium 9.3 mg/dL (8.5-10.1) 09/15/25 04:02 Magnesium 2.3 mg/dL (2.0-2.9) 09/15/25 04:02 Total Bilirubin 0.90 mg/dL (0.2-1.0) 09/15/25 04:02 AST 48 Units/L (15-37) H 09/15/25 04:02 ALT 28 Units/L (12-78) 09/15/25 04:02 Alkaline Phosphatase 128 Units/L (46-116) H 09/15/25 04:02 Troponin I High Sens 33.8 ng/L (4.0-60.0) 09/12/25 11:55 Total Protein 5.2 g/dL (6.4-8.2) L 09/15/25 04:02 Albumin 2.3 g/dL (3.4-5.0) L 09/15/25 04:02 Globulin 2.9 g/dL (2.5-4.5) 09/15/25 04:02 Albumin/Globulin Ratio 0.8 Ratio (1.1-2.1) L 09/15/25 04:02 Triglycerides 103 mg/dL (0-150) 09/13/25 04:30 Cholesterol < 50 mg/dL (0-200) 09/13/25 04:30 LDL Cholesterol, Calc 3 mg/dL (0-100) 09/13/25 04:30 HDL Cholesterol 26 mg/dL (40-60) L 09/13/25 04:30 Cholesterol/HDL Ratio 1.9 (0.0-5.0) 09/13/25 04:30 Amylase 215 Units/L (25-115) H 09/12/25 09:57 Lipase 26 Units/L (16-77) 09/12/25 09:57 Specimen Type Catherized urine 09/12/25 11:19 Urine Color Dark yellow (YELLOW) 09/12/25 11:19 Urine Appearance Clear (CLEAR) 09/12/25 11:19 Urine pH 5.0 (5.0 - 8.0) 09/12/25 11:19 Ur Specific [place] 1.025 (1.000-1.030) 09/12/25 11:19 Urine Protein 3+ (NEGATIVE) 09/12/25 11:19 Urine Glucose (UA) Negative (NEGATIVE) 09/12/25 11:19 Urine Ketones Negative (NEGATIVE) 09/12/25 11:19 Urine Blood 1+ (NEGATIVE) 09/12/25 11:19 Urine Nitrite Negative (NEGATIVE) 09/12/25 11:19 Urine Bilirubin 1+ (NEGATIVE) 09/12/25 11:19 Urine Urobilinogen 1+ (NORMAL) 09/12/25 11:19 Ur Leukocyte Esterase 1+ (NEGATIVE) 09/12/25 11:19 Urine RBC 5-10 /HPF (0-3) A 09/12/25 11:19 Urine WBC 0-2 /HPF (0-5) 09/12/25 11:19 Ur Squamous Epith Cells Rare /HPF (NEGATIVE) 09/12/25 11:19 Amorphous Sediment Trace /HPF (NEGATIVE) 09/12/25 11:19 Urine Bacteria Trace /HPF (NEGATIVE) 09/12/25 11:19 Ur Culture Indicated? Yes/culture set up 09/12/25 11:19 Random Vancomycin 6.0 ug/mL 09/13/25 08:23 Blood Type O POSITIVE 09/12/25 14:49 Antibody Screen Negative 09/12/25 14:49 Assessment and Plan 1: Septic shock secondary to perforated sigmoid colon with fecal peritonitis. Status post laparotomy, closure of perforated sigmoid colon, diverting colostomy, thorough irrigation and drainage of the peritoneum. Patient is out of her septic shock, maintaining her blood pressure and oxygenation, good urine output with almost back to normal renal function. Cardiac status is maintained without pressors. Episodes of hypoglycemia this morning required adding D50 and will keep the patient on the D10 at the 100 cc/h for now.maybe starting on TPN Same IV antibiotics to cover gram-negative rods which was positive in the blood culture. t0 stop Lovenox ,keep SCDs, incentive spirometer, and out of bed with binder. Same IV Protonix. D/C NGT , on clear liquid . Problem Patient Problems: Patient Problems Tachycardia (Acute) R00.0 Hypotension (Acute) I95.9 Sepsis (Acute) A41.9 Perforated small intestine (Acute) K63.1
[2025-09-15] MEDS: NORCO 5/325 MG TAB PO PRN (09:21)
[2025-09-15] MEDS: ZOFRAN INJ 4 MG VIAL IVP PRN (09:50)
[2025-09-15] MEDS: K-DUR TAB 20 MEQ PO SCH (09:53)
[2025-09-15] MEDS: NS 250 ML IV 250 ML IV ONE (10:00)
[2025-09-15] MEDS: PROVENTIL NEB TX 0.083% 2.5MG/ 3ML ONE (12:12)
[2025-09-15 15:48] LABS: ABG BASE EXCESS 7.4 mmol/L (-2.0-2.0); ABG OXYGEN SATURATION 90.0 % (90-100); ABG PCO2 40.0 mmHg (35.0-45.0); ABG PH 7.500 (7.35-7.45); ABG PO2 52.0 mmHg (80.0-100.0)
[2025-09-15 15:49] LABS: ABG HCO3 31.2 mmol/L (22-26)
[2025-09-15] MEDS: LR 1,000 ML IV 1,000 ML IV SCH (16:00)
[2025-09-15] MEDS: DRUG FILTER EXTENSION SET ONE (16:05)
--- NOTE | 2025-09-15 23:08 | RAD ---
EXAM: CHEST, 1 VIEW HISTORY: SOB, POST INTUBATION ; COMPARISON: 09/15/2025 FINDINGS: The trachea is midline. Right IJ central line tip in the distal SVC. The cardiac silhouette is unremarkable. There is increased opacification in the left lung base due to atelectasis and/or small pleural effusion.. The bony thorax is unremarkable. IMPRESSION: Left basilar atelectasis and/or small pleural effusion. Right IJ central line tip in SVC. No pneumothorax THIS IS AN ELECTRONICALLY VERIFIED FINAL REPORT 09/15/2025 11:04 PM - Electronically signed by Josef Chavez MD
[2025-09-15] MEDS: PROTONIX INJ 40 MG VIAL IVP SCH (23:29)
[2025-09-16 05:02] LABS: INR 0.95 (0.8-1.3)
[2025-09-16 05:15] LABS: COR CA(FOR HYPOALB) 9.4 mg/dL (8.5-10.1); COR NA(FOR HYPERGLY) 136 mmol/L (136-145); CREATININE 0.54 mg/dL (0.55-1.02); eGFR NON BLACK RACES > 60 (>60)
[2025-09-16 05:22] LABS: MEAN PLATELET VOLUME 9.8 fL (7.4-11.0); RED CELL DISTRIBUTION WIDTH 16.4 % (11.6-16.5)
[2025-09-16 05:43] LABS: PLATELET MORPHOLOGY COMMENT NORMAL (NORMAL)
[2025-09-16] MEDS ORDERED: CONSULT PHARMACY - POTASSIUM & MAGNESIUM XX SCH (06:00)
[2025-09-16] MEDS ORDERED: PHARMACY COMMENT IV NR (06:00)
[2025-09-16] MEDS: MAGNESIUM SULFATE 1 GRAM/100 mL PREMIX 1 G/100 ML BAG IV SCH (06:19)
[2025-09-16] MEDS: K-RIDER 10 MEQ/100 ML WATER 10 MEQ/100 ML BAG IV SCH (06:32)
[2025-09-16 07:37] LABS: ABG ALLEN TEST POS; ABG BASE EXCESS 5.2 mmol/L (-2.0-2.0); ABG HCO3 29.0 mmol/L (22-26); ABG OXYGEN SATURATION 93.0 % (90-100); ABG PCO2 39.0 mmHg (35.0-45.0); ABG PH 7.480 (7.35-7.45); ABG PO2 61.0 mmHg (80.0-100.0)
[2025-09-16] MEDS: DRUG FILTER EXTENSION SET ONE ×2 (08:40→23:52)
[2025-09-16] MEDS: CYMBALTA PO SCH (08:52)
[2025-09-16] MEDS: ARIMIDEX PO SCH (08:53)
[2025-09-16] MEDS ORDERED: PROTONIX TAB 40 MG PO SCH (09:00)
--- NOTE | 2025-09-16 10:08 | DR.PROGNOT ---
HOSPITAL PROGRESS NOTE Progress Note for Day of: Progress Note Date: 09/16/25 Chief Complaint Chief Complaint: Po day 4. Patient seems to be stable, tolerating clear liquid, no vomiting but she was somewhat nauseated. Urine output is very good. White count is up to normal and today is 13,000 with shift to the left, hemoglobin 11, platelets count is improving at 84 today PT/INR are normal. Her blood gas showed some improvement to with pH 7.48, pCO2 39, pO2 61, bicarb 29, base excess 5.2, potassium 2.7, BUN/creatinine are normal albumin 1.9. Blood pressure is blood pressure is 169/88, pulse 97, O2 sat 100% on 2 L nasal cannula. Patient is alert and cooperative, she has mild generalized edema which is expected to improve with good urine output and cutting down on the IV, patient is on 100 cc of TPN only. Abdomen is soft with positive bowel sounds, colostomy is not functioning it and KHRIS drainage is serous and small amount. Past Medical Family Social History Allergies: Allergies amoxicillin Adverse Reaction (Severe, Verified 09/12/25 09:51) ANAPHALEXIS REACTION Penicillins Adverse Reaction (Severe, Verified 09/12/25 09:51) ANAPHALEXIS REACTION codeine Adverse Reaction (Mild, Verified 09/12/25 09:51) RASH Vital Signs Vital Signs: Vital Signs Temperature 97.9 F Temperature 98.2 F Temperature 98.2 F Pulse Rate 97 Pulse Rate 97 Pulse Rate 97 Pulse Rate 103 Pulse Rate 98 Pulse Rate 97 Pulse Rate 98 Pulse Rate 102 Respiratory Rate 23 Respiratory Rate 21 Respiratory Rate 22 Respiratory Rate 21 Respiratory Rate 21 Respiratory Rate 22 Respiratory Rate 22 Respiratory Rate 23 Respiratory Rate 21 Respiratory Rate 23 Respiratory Rate 22 Blood Pressure 169/88 Blood Pressure 158/85 Blood Pressure 166/84 Blood Pressure 163/86 Blood Pressure 167/82 Blood Pressure 157/86 Blood Pressure 162/83 Blood Pressure 167/82 O2 Sat by Pulse Oximetry 100 O2 Sat by Pulse Oximetry 100 O2 Sat by Pulse Oximetry 100 O2 Sat by Pulse Oximetry 100 O2 Sat by Pulse Oximetry 100 O2 Sat by Pulse Oximetry 100 O2 Sat by Pulse Oximetry 100 O2 Sat by Pulse Oximetry 100 Physical Exam Oriented: Normal Eyes: Normal Ear: Normal Nose: Normal Throat: Normal Respiratory: Normal Cardiovascular: Normal GI:Auscultation: Decreased GI:Palpation: Other (Diffuse tenderness with hypoactive bowel sounds) GI: Tenderness: Diffuse (Abdomen is soft with diffuse tenderness) Speech Pattern: Clear and Appropriate Laboratory and Diagnostics 09/16/25 04:18 09/16/25 04:18 Labs: 09/13/25 08:09 Sputum - Endotracheal Wash Sputum Culture - Preliminary 09/13/25 08:09 Sputum - Endotracheal Wash - Final 09/12/25 15:46 Peritoneal Fluid Wound Gram Stain - Final 09/12/25 15:46 Peritoneal Fluid Wound Culture - Final Escherichia Coli 09/12/25 15:28 Peritoneal Fluid Wound Gram Stain - Final 09/12/25 15:28 Peritoneal Fluid Wound Culture - Final Escherichia Coli 09/12/25 11:19 Urine,Catheterized Urine Culture - Final 09/12/25 10:30 Blood Blood Culture Gram Stain - Final 09/12/25 10:30 Blood Blood Culture - Final Escherichia Coli 09/12/25 09:57 Blood Blood Culture Gram Stain - Final 09/12/25 09:57 Blood Blood Culture - Final Escherichia Coli Laboratory WBC 13.0 X10^3/uL (3.6-10.0) H 09/16/25 04:18 RBC 4.15 X10^6/uL (3.5-5.4) 09/16/25 04:18 Hgb 11.0 g/dL (12.0-16.0) L 09/16/25 04:18 Hct 33.3 % (36.0-47.0) L 09/16/25 04:18 MCV 80.2 fL (80.0-100.0) 09/16/25 04:18 MCH 26.5 pg (27.0-34.0) L 09/16/25 04:18 MCHC 33.1 g/dL (33.0-35.0) 09/16/25 04:18 RDW 16.4 % (11.6-16.5) 09/16/25 04:18 Plt Count 84 X10^3/uL (150.0-450.0) L 09/16/25 04:18 Plt Count Comment Decreased (ADEQUATE) A 09/16/25 04:18 MPV 9.8 fL (7.4-11.0) 09/16/25 04:18 Neut % (Auto) 91.7 % (42.0-75.0) H 09/16/25 04:18 Lymph % (Auto) 3.6 % (21.0-51.0) L 09/16/25 04:18 [place] % (Auto) 4.5 % (0.0-13.0) 09/16/25 04:18 Eos % (Auto) 0.1 % (0.9-2.9) L 09/16/25 04:18 Baso % (Auto) 0.1 % (0.2-1.0) L 09/16/25 04:18 Neut # (Auto) 11.9 x10^3/uL (2.2-4.8) H 09/16/25 04:18 Lymph # (Auto) 0.5 X10^3/uL (1.3-2.9) L 09/16/25 04:18 [place] # (Auto) 0.6 x10^3/uL (0.3-0.8) 09/16/25 04:18 Eos # (Auto) 0.0 x10^3/uL (0.0-0.2) 09/16/25 04:18 Baso # (Auto) 0.0 X10^3/uL (0.0-0.1) 09/16/25 04:18 Absolute Nucleated RBC 0.1 /100WBC 09/16/25 04:18 Total Counted 100 09/16/25 04:18 Neutrophils % (Manual) 93 % (39-76) H 09/16/25 04:18 Band Neutrophils % 9 % (0-10) 09/15/25 04:02 Lymphocytes % (Manual) 4 % (13-43) L 09/16/25 04:18 Monocytes % (Manual) 3 % (4-9) L 09/16/25 04:18 Eosinophils % (Manual) 1 % (0-6) 09/15/25 04:02 Metamyelocytes % 2 09/15/25 04:02 Myelocytes % 2 09/15/25 04:02 Plt Morphology Comment Normal (NORMAL) 09/16/25 04:18 RBC Morphology Normal (NORMAL) 09/16/25 04:18 PT 12.8 SECONDS (11.8-14.3) 09/16/25 04:18 INR Target Range - 09/16/25 04:18 INR 0.95 (0.8-1.3) 09/16/25 04:18 APTT 27.1 SECONDS (22.9-36.5) 09/12/25 09:57 PTT Comment - 09/12/25 09:57 Sample Site [place] 09/16/25 07:32 ABG pH 7.480 (7.35-7.45) H 09/16/25 07:32 ABG pCO2 39.0 mmHg (35.0-45.0) 09/16/25 07:32 ABG pO2 61.0 mmHg (80.0-100.0) L 09/16/25 07:32 ABG HCO3 29.0 mmol/L (22-26) H 09/16/25 07:32 ABG O2 Saturation 93.0 % (90-100) 09/16/25 07:32 ABG Base Excess 5.2 mmol/L (-2.0-2.0) H 09/16/25 07:32 Kevin Test Pos 09/16/25 07:32 A-a Gradient 90.0 mmHg 09/16/25 07:32 FiO2 28.0 09/16/25 07:32 Blood Gas Comments Pt ad[place] well elj cdn 09/16/25 07:32 Sodium 135 mmol/L (136-145) L 09/16/25 04:18 Corrected Sodium 136 mmol/L (136-145) 09/16/25 04:18 Potassium 2.7 mmol/L (3.5-5.1) L* 09/16/25 04:18 Chloride 100 mmol/L (98-107) 09/16/25 04:18 Carbon Dioxide 26.6 mmol/L (21-32) 09/16/25 04:18 BUN 13 mg/dL (7-18) 09/16/25 04:18 Creatinine 0.54 mg/dL (0.55-1.02) L 09/16/25 04:18 Est GFR (MDRD) Af Amer > 60 (>60) 09/16/25 04:18 Est GFR (MDRD) Non-Af > 60 (>60) 09/16/25 04:18 Glucose 123 mg/dL (65-99) H 09/16/25 04:18 POC Glucose (mg/dL) 113 mg/dL (65-99) H 09/16/25 06:16 Lactic Acid 1.2 mmol/L (0.4-2.0) 09/16/25 04:18 Calcium 7.7 mg/dL (8.5-10.1) L 09/16/25 04:18 Corrected Calcium 9.4 mg/dL (8.5-10.1) 09/16/25 04:18 Magnesium 1.8 mg/dL (2.0-2.9) L 09/16/25 04:18 Total Bilirubin 0.90 mg/dL (0.2-1.0) 09/16/25 04:18 AST 25 Units/L (15-37) 09/16/25 04:18 ALT 21 Units/L (12-78) 09/16/25 04:18 Alkaline Phosphatase 120 Units/L (46-116) H 09/16/25 04:18 Troponin I High Sens 33.8 ng/L (4.0-60.0) 09/12/25 11:55 Total Protein 5.2 g/dL (6.4-8.2) L 09/16/25 04:18 Albumin 1.9 g/dL (3.4-5.0) L 09/16/25 04:18 Globulin 3.3 g/dL (2.5-4.5) 09/16/25 04:18 Albumin/Globulin Ratio 0.6 Ratio (1.1-2.1) L 09/16/25 04:18 Triglycerides 103 mg/dL (0-150) 09/13/25 04:30 Cholesterol < 50 mg/dL (0-200) 09/13/25 04:30 LDL Cholesterol, Calc 3 mg/dL (0-100) 09/13/25 04:30 HDL Cholesterol 26 mg/dL (40-60) L 09/13/25 04:30 Cholesterol/HDL Ratio 1.9 (0.0-5.0) 09/13/25 04:30 Amylase 215 Units/L (25-115) H 09/12/25 09:57 Lipase 26 Units/L (16-77) 09/12/25 09:57 Specimen Type Catherized urine 09/12/25 11:19 Urine Color Dark yellow (YELLOW) 09/12/25 11:19 Urine Appearance Clear (CLEAR) 09/12/25 11:19 Urine pH 5.0 (5.0 - 8.0) 09/12/25 11:19 Ur Specific [place] 1.025 (1.000-1.030) 09/12/25 11:19 Urine Protein 3+ (NEGATIVE) 09/12/25 11:19 Urine Glucose (UA) Negative (NEGATIVE) 09/12/25 11:19 Urine Ketones Negative (NEGATIVE) 09/12/25 11:19 Urine Blood 1+ (NEGATIVE) 09/12/25 11:19 Urine Nitrite Negative (NEGATIVE) 09/12/25 11:19 Urine Bilirubin 1+ (NEGATIVE) 09/12/25 11:19 Urine Urobilinogen 1+ (NORMAL) 09/12/25 11:19 Ur Leukocyte Esterase 1+ (NEGATIVE) 09/12/25 11:19 Urine RBC 5-10 /HPF (0-3) A 09/12/25 11:19 Urine WBC 0-2 /HPF (0-5) 09/12/25 11:19 Ur Squamous Epith Cells Rare /HPF (NEGATIVE) 09/12/25 11:19 Amorphous Sediment Trace /HPF (NEGATIVE) 09/12/25 11:19 Urine Bacteria Trace /HPF (NEGATIVE) 09/12/25 11:19 Ur Culture Indicated? Yes/culture set up 09/12/25 11:19 Random Vancomycin 6.0 ug/mL 09/13/25 08:23 Blood Type O POSITIVE 09/12/25 14:49 Antibody Screen Negative 09/12/25 14:49 Assessment and Plan 1: Septic shock secondary to perforated sigmoid colon with fecal peritonitis. Status post laparotomy, closure of perforated sigmoid colon, diverting colostomy, thorough irrigation and drainage of the peritoneum. Patient is out of her septic shock, maintaining her blood pressure and oxygenation, good urine output with almost back to normal renal function. On TPN 100 cc an hour, potassium and magnesium supplement. Will DC the art line, advance her diet to full liquid, Out of bed and start physical therapy. Incentive spirometer, and same postoperative care. Problem Patient Problems: Patient Problems Tachycardia (Acute) R00.0 Hypotension (Acute) I95.9 Sepsis (Acute) A41.9 Perforated small intestine (Acute) K63.1
--- NOTE | 2025-09-16 10:12 | RAD ---
EXAM: Portable chest HISTORY: Pneumonia COMPARISON: 025 FINDINGS: There is a right IJ line in good position. Heart size is normal. Kari are normal. Right lung and left upper lung love are clear. There is abnormal density in the retrocardiac area of the left lower lobe obscuring the left hemidiaphragm. There is a small left pleural effusion present. The abnormal density in the retrocardiac area of the lower lobe could be entirely due to left pleural effusion however underlying atelectasis or infiltrate not excluded. Finding is unchanged from prior examination. Bony thorax is unremarkable. IMPRESSION: No significant change from the prior examination THIS IS AN ELECTRONICALLY VERIFIED FINAL REPORT 09/16/2025 10:09 AM - Electronically signed by Frank Ngo MD
[2025-09-16] MEDS: LIPOSYN III 20% 100ML 100 ML IV SCH (20:06)
[2025-09-17 06:33] LABS: MEAN PLATELET VOLUME 8.7 fL (7.4-11.0); RED CELL DISTRIBUTION WIDTH 16.4 % (11.6-16.5)
[2025-09-17 06:38] LABS: COR CA(FOR HYPOALB) 10.0 mg/dL (8.5-10.1); COR NA(FOR HYPERGLY) 141 mmol/L (136-145); CREATININE 0.48 mg/dL (0.55-1.02); eGFR NON BLACK RACES > 60 (>60)
[2025-09-17] MEDS ORDERED: CONSULT PHARMACY - POTASSIUM & MAGNESIUM XX SCH (07:00)
[2025-09-17 07:01] LABS: PLATELET MORPHOLOGY COMMENT NORMAL (NORMAL)
[2025-09-17] MEDS: NORVASC TAB 5 MG ONE (07:44)
[2025-09-17] MEDS ORDERED: K-DUR TAB 20 MEQ PO SCH (09:00)
[2025-09-17] MEDS ORDERED: MAG-OX TAB PO SCH (09:00)
[2025-09-17] MEDS: NORVASC TAB 5 MG PO SCH (09:03)
[2025-09-17] MEDS: DRUG FILTER EXTENSION SET ONE (09:05)
--- NOTE | 2025-09-17 11:00 | PCM.PROG ---
Progress Note Progress Note for Day of Date of Exam: 09/17/25 Subjective Subjective: Patient is a 55-year-old female that was admitted for sepsis due to bowel perforation. She is status post surgery with now a colostomy. This morning she is resting comfortably in bed. No acute events overnight. She does report having a little stool in her colostomy bag. Labs/imaging: WBC 18.8, hemoglobin 11.1, platelets 97, sodium 141, potassium 3.1, creatinine 0.48, glucose 119, magnesium 1.8. Chest x-ray revealed atelectasis. Patient is currently on a full liquid diet. She is on IV antibiotics Invanz that is covering for E. coli found in her blood. She did have an elevated leukocytosis today however she has been afebrile. Will continue to monitor at this time. Vitals have remained stable, in fact she has been more hypertensive. We will add on amlodipine 5 mg. Continue to closely monitor vitals. Otherwise continue current treatment plan. Use incentive spirometer. Advance diet per surgery. Continue closely monitor and follow-up labs/imaging. Time spent for clinical assessment, reviewing labs/imaging, physical exam, decision making and documentation greater than 45 mins. Past Medical Family Social History Allergies: Allergies amoxicillin Adverse Reaction (Severe, Verified 09/12/25 09:51) ANAPHALEXIS REACTION Penicillins Adverse Reaction (Severe, Verified 09/12/25 09:51) ANAPHALEXIS REACTION codeine Adverse Reaction (Mild, Verified 09/12/25 09:51) RASH Review of Systems ROS changes noted: see HPI Vital Signs and I&O's Vital Signs: Vital Signs Temperature 98.4 F Temperature 98.8 F Temperature 98.8 F Pulse Rate 99 Pulse Rate 98 Pulse Rate 101 Pulse Rate 105 Pulse Rate 104 Pulse Rate 107 Pulse Rate 101 Pulse Rate 104 Pulse Rate 106 Pulse Rate 109 Pulse Rate 116 Pulse Rate 98 Pulse Rate 100 Pulse Rate 102 Pulse Rate 97 Pulse Rate 106 Pulse Rate 103 Pulse Rate 100 Pulse Rate 99 Pulse Rate 104 Pulse Rate 105 Pulse Rate 107 Pulse Rate 101 Pulse Rate 104 Pulse Rate 109 Pulse Rate 107 Pulse Rate 111 Pulse Rate 101 Pulse Rate 101 Pulse Rate 110 Pulse Rate 104 Pulse Rate 105 Pulse Rate 105 Respiratory Rate 20 Respiratory Rate 23 Respiratory Rate 20 Respiratory Rate 26 Respiratory Rate 25 Respiratory Rate 25 Respiratory Rate 22 Respiratory Rate 35 Respiratory Rate 26 Respiratory Rate 27 Respiratory Rate 34 Respiratory Rate 33 Respiratory Rate 35 Respiratory Rate 21 Respiratory Rate 22 Respiratory Rate 22 Respiratory Rate 22 Respiratory Rate 25 Respiratory Rate 24 Respiratory Rate 23 Respiratory Rate 20 Respiratory Rate 25 Respiratory Rate 27 Respiratory Rate 26 Respiratory Rate 21 Respiratory Rate 21 Respiratory Rate 31 Respiratory Rate 23 Respiratory Rate 30 Respiratory Rate 29 Respiratory Rate 33 Respiratory Rate 20 Respiratory Rate 20 Respiratory Rate 30 Respiratory Rate 22 Respiratory Rate 21 Respiratory Rate 23 Respiratory Rate 20 Blood Pressure 185/89 Blood Pressure 168/88 Blood Pressure 195/92 Blood Pressure 181/93 Blood Pressure 191/104 Blood Pressure 187/88 Blood Pressure 162/110 Blood Pressure 170/83 Blood Pressure 176/85 Blood Pressure 181/94 Blood Pressure 176/85 Blood Pressure 166/90 Blood Pressure 177/87 Blood Pressure 179/86 Blood Pressure 166/90 Blood Pressure 153/89 Blood Pressure 153/89 Blood Pressure 162/88 Blood Pressure 172/91 Blood Pressure 173/89 Blood Pressure 162/88 Blood Pressure 162/88 Blood Pressure 168/86 Blood Pressure 172/87 Blood Pressure 168/80 O2 Sat by Pulse Oximetry 98 O2 Sat by Pulse Oximetry 97 O2 Sat by Pulse Oximetry 96 O2 Sat by Pulse Oximetry 97 O2 Sat by Pulse Oximetry 96 O2 Sat by Pulse Oximetry 96 O2 Sat by Pulse Oximetry 96 O2 Sat by Pulse Oximetry 96 O2 Sat by Pulse Oximetry 95 O2 Sat by Pulse Oximetry 96 O2 Sat by Pulse Oximetry 95 O2 Sat by Pulse Oximetry 96 O2 Sat by Pulse Oximetry 96 O2 Sat by Pulse Oximetry 97 O2 Sat by Pulse Oximetry 100 O2 Sat by Pulse Oximetry 96 O2 Sat by Pulse Oximetry 96 O2 Sat by Pulse Oximetry 96 O2 Sat by Pulse Oximetry 95 O2 Sat by Pulse Oximetry 96 O2 Sat by Pulse Oximetry 92 O2 Sat by Pulse Oximetry 94 O2 Sat by Pulse Oximetry 94 O2 Sat by Pulse Oximetry 93 O2 Sat by Pulse Oximetry 93 O2 Sat by Pulse Oximetry 93 O2 Sat by Pulse Oximetry 93 O2 Sat by Pulse Oximetry 95 O2 Sat by Pulse Oximetry 95 O2 Sat by Pulse Oximetry 95 O2 Sat by Pulse Oximetry 95 O2 Sat by Pulse Oximetry 95 O2 Sat by Pulse Oximetry 95 Intake and Output: Intake & Output 09/14/25 09/15/25 09/16/25 09/17/25 23:59 23:59 23:59 23:59 Intake Total 4253 / 4253 4177 / 4177 5677 / 5677 2090 Output Total 5915 / 6065 2273 / 2321 5570 / 5695 1005 / 1005 Balance -1662 / -1812 1904 / 1856 107 / -18 1086 / 1086 Physical Exam Oriented: Normal Eyes: Normal Ear: Normal Nose: Normal Throat: Normal Respiratory: Normal Cardiovascular: Normal Auscultation: Bowel Sounds: Decreased Tenderness: Diffuse (Abdomen is soft with diffuse tenderness) Speech Pattern: Clear and Appropriate Laboratory and Diagnostics 09/17/25 05:15 09/17/25 05:15 Labs: 09/13/25 08:09 Sputum - Endotracheal Wash Sputum Culture - Final Klebsiella Rhinoscleromatis 09/13/25 08:09 Sputum - Endotracheal Wash - Final 09/12/25 15:46 Peritoneal Fluid Wound Gram Stain - Final 09/12/25 15:46 Peritoneal Fluid Wound Culture - Final Escherichia Coli 09/12/25 15:28 Peritoneal Fluid Wound Gram Stain - Final 09/12/25 15:28 Peritoneal Fluid Wound Culture - Final Escherichia Coli 09/12/25 11:19 Urine,Catheterized Urine Culture - Final 09/12/25 10:30 Blood Blood Culture Gram Stain - Final 09/12/25 10:30 Blood Blood Culture - Final Escherichia Coli 09/12/25 09:57 Blood Blood Culture Gram Stain - Final 09/12/25 09:57 Blood Blood Culture - Final Escherichia Coli Laboratory WBC 18.8 X10^3/uL (3.6-10.0) H 09/17/25 05:15 RBC 4.13 X10^6/uL (3.5-5.4) 09/17/25 05:15 Hgb 11.1 g/dL (12.0-16.0) L 09/17/25 05:15 Hct 33.1 % (36.0-47.0) L 09/17/25 05:15 MCV 80.2 fL (80.0-100.0) 09/17/25 05:15 MCH 26.9 pg (27.0-34.0) L 09/17/25 05:15 MCHC 33.5 g/dL (33.0-35.0) 09/17/25 05:15 RDW 16.4 % (11.6-16.5) 09/17/25 05:15 Plt Count 97 X10^3/uL (150.0-450.0) L 09/17/25 05:15 Plt Count Comment Decreased (ADEQUATE) A 09/17/25 05:15 MPV 8.7 fL (7.4-11.0) 09/17/25 05:15 Neut % (Auto) 89.9 % (42.0-75.0) H 09/17/25 05:15 Lymph % (Auto) 3.3 % (21.0-51.0) L 09/17/25 05:15 [place] % (Auto) 6.4 % (0.0-13.0) 09/17/25 05:15 Eos % (Auto) 0.2 % (0.9-2.9) L 09/17/25 05:15 Baso % (Auto) 0.2 % (0.2-1.0) 09/17/25 05:15 Neut # (Auto) 16.9 x10^3/uL (2.2-4.8) H 09/17/25 05:15 Lymph # (Auto) 0.6 X10^3/uL (1.3-2.9) L 09/17/25 05:15 [place] # (Auto) 1.2 x10^3/uL (0.3-0.8) H 09/17/25 05:15 Eos # (Auto) 0.0 x10^3/uL (0.0-0.2) 09/17/25 05:15 Baso # (Auto) 0.0 X10^3/uL (0.0-0.1) 09/17/25 05:15 Absolute Nucleated RBC 0.3 /100WBC 09/17/25 05:15 Total Counted 100 09/17/25 05:15 Neutrophils % (Manual) 87 % (39-76) H 09/17/25 05:15 Band Neutrophils % 9 % (0-10) 09/15/25 04:02 Lymphocytes % (Manual) 7 % (13-43) L 09/17/25 05:15 Monocytes % (Manual) 6 % (4-9) 09/17/25 05:15 Eosinophils % (Manual) 1 % (0-6) 09/15/25 04:02 Metamyelocytes % 2 09/15/25 04:02 Myelocytes % 2 09/15/25 04:02 Plt Morphology Comment Normal (NORMAL) 09/17/25 05:15 RBC Morphology Abnormal (NORMAL) A 09/17/25 05:15 Hypochromasia Slight A 09/17/25 05:15 Target Cells Present 09/17/25 05:15 PT 12.8 SECONDS (11.8-14.3) 09/16/25 04:18 INR Target Range - 09/16/25 04:18 INR 0.95 (0.8-1.3) 09/16/25 04:18 APTT 27.1 SECONDS (22.9-36.5) 09/12/25 09:57 PTT Comment - 09/12/25 09:57 Sample Site Lrad 09/16/25 07:32 ABG pH 7.480 (7.35-7.45) H 09/16/25 07:32 ABG pCO2 39.0 mmHg (35.0-45.0) 09/16/25 07:32 ABG pO2 61.0 mmHg (80.0-100.0) L 09/16/25 07:32 ABG HCO3 29.0 mmol/L (22-26) H 09/16/25 07:32 ABG O2 Saturation 93.0 % (90-100) 09/16/25 07:32 ABG Base Excess 5.2 mmol/L (-2.0-2.0) H 09/16/25 07:32 Kevin Test Pos 09/16/25 07:32 A-a Gradient 90.0 mmHg 09/16/25 07:32 FiO2 28.0 09/16/25 07:32 Blood Gas Comments Pt adolph well elj cdn 09/16/25 07:32 Sodium 141 mmol/L (136-145) 09/17/25 05:15 Corrected Sodium 141 mmol/L (136-145) 09/17/25 05:15 Potassium 3.1 mmol/L (3.5-5.1) L 09/17/25 05:15 Chloride 104 mmol/L (98-107) 09/17/25 05:15 Carbon Dioxide 29.8 mmol/L (21-32) 09/17/25 05:15 BUN 11 mg/dL (7-18) 09/17/25 05:15 Creatinine 0.48 mg/dL (0.55-1.02) L 09/17/25 05:15 Est GFR (MDRD) Af Amer > 60 (>60) 09/17/25 05:15 Est GFR (MDRD) Non-Af > 60 (>60) 09/17/25 05:15 Glucose 119 mg/dL (65-99) H 09/17/25 05:15 POC Glucose (mg/dL) 113 mg/dL (65-99) H 09/16/25 06:16 Lactic Acid 1.2 mmol/L (0.4-2.0) 09/16/25 04:18 Calcium 8.3 mg/dL (8.5-10.1) L 09/17/25 05:15 Corrected Calcium 10.0 mg/dL (8.5-10.1) 09/17/25 05:15 Magnesium 1.8 mg/dL (2.0-2.9) L 09/17/25 05:15 Total Bilirubin 0.60 mg/dL (0.2-1.0) 09/17/25 05:15 AST 23 Units/L (15-37) 09/17/25 05:15 ALT 18 Units/L (12-78) 09/17/25 05:15 Alkaline Phosphatase 125 Units/L (46-116) H 09/17/25 05:15 Troponin I High Sens 33.8 ng/L (4.0-60.0) 09/12/25 11:55 Total Protein 5.5 g/dL (6.4-8.2) L 09/17/25 05:15 Albumin 1.9 g/dL (3.4-5.0) L 09/17/25 05:15 Globulin 3.6 g/dL (2.5-4.5) 09/17/25 05:15 Albumin/Globulin Ratio 0.5 Ratio (1.1-2.1) L 09/17/25 05:15 Triglycerides 103 mg/dL (0-150) 09/13/25 04:30 Cholesterol < 50 mg/dL (0-200) 09/13/25 04:30 LDL Cholesterol, Calc 3 mg/dL (0-100) 09/13/25 04:30 HDL Cholesterol 26 mg/dL (40-60) L 09/13/25 04:30 Cholesterol/HDL Ratio 1.9 (0.0-5.0) 09/13/25 04:30 Amylase 215 Units/L (25-115) H 09/12/25 09:57 Lipase 26 Units/L (16-77) 09/12/25 09:57 Specimen Type Catherized urine 09/12/25 11:19 Urine Color Dark yellow (YELLOW) 09/12/25 11:19 Urine Appearance Clear (CLEAR) 09/12/25 11:19 Urine pH 5.0 (5.0 - 8.0) 09/12/25 11:19 Ur Specific [place] 1.025 (1.000-1.030) 09/12/25 11:19 Urine Protein 3+ (NEGATIVE) 09/12/25 11:19 Urine Glucose (UA) Negative (NEGATIVE) 09/12/25 11:19 Urine Ketones Negative (NEGATIVE) 09/12/25 11:19 Urine Blood 1+ (NEGATIVE) 09/12/25 11:19 Urine Nitrite Negative (NEGATIVE) 09/12/25 11:19 Urine Bilirubin 1+ (NEGATIVE) 09/12/25 11:19 Urine Urobilinogen 1+ (NORMAL) 09/12/25 11:19 Ur Leukocyte Esterase 1+ (NEGATIVE) 09/12/25 11:19 Urine RBC 5-10 /HPF (0-3) A 09/12/25 11:19 Urine WBC 0-2 /HPF (0-5) 09/12/25 11:19 Ur Squamous Epith Cells Rare /HPF (NEGATIVE) 09/12/25 11:19 Amorphous Sediment Trace /HPF (NEGATIVE) 09/12/25 11:19 Urine Bacteria Trace /HPF (NEGATIVE) 09/12/25 11:19 Ur Culture Indicated? Yes/culture set up 09/12/25 11:19 Random Vancomycin 6.0 ug/mL 09/13/25 08:23 Blood Type O POSITIVE 09/12/25 14:49 Antibody Screen Negative 09/12/25 14:49 Plan (1) Sepsis: Status: Acute Qualifiers: Sepsis type: Escherichia coli Sepsis acute organ dysfunction status: u nspecified Qualified Code(s): A41.51 - Sepsis due to Escherichia coli [E. coli] (2) Perforated small intestine: Status: Acute (3) Colostomy in place: Status: Acute
[2025-09-17 13:53] LABS: ABG ALLEN TEST POS; ABG BASE EXCESS 8.7 mmol/L (-2.0-2.0); ABG HCO3 32.8 mmol/L (22-26); ABG OXYGEN SATURATION 93.0 % (90-100); ABG PCO2 42.0 mmHg (35.0-45.0); ABG PH 7.500 (7.35-7.45); ABG PO2 61.0 mmHg (80.0-100.0)
[2025-09-17 13:58] VITALS: BMI 29.0
--- NOTE | 2025-09-17 18:19 | DR.PROGNOT ---
HOSPITAL PROGRESS NOTE Progress Note for Day of: Progress Note Date: 09/17/25 Chief Complaint Chief Complaint: Po day 4. Patient seems to be stable, tolerating full liquid, no vomiting but she was somewhat nauseated. Urine output is very good. White count is up to normal and today is 18,000 with shift to the left, hemoglobin 11, platelets count is improving at 94 today PT/INR are normal. Her blood gas showed some improvement to with pH 7.5, pCO2 42, pO2 61, bicarb 29, base excess 8.7, potassium 3.1, BUN/creatinine are normal albumin 1.9. Blood pressure is blood pressure is 169/88, pulse 97, O2 sat 100% on 2 L nasal cannula. Patient is alert and cooperative, Abdomen is soft with positive bowel sounds, colostomy is functioning now.no wound infection . Past Medical Family Social History Allergies: Allergies amoxicillin Adverse Reaction (Severe, Verified 09/12/25 09:51) ANAPHALEXIS REACTION Penicillins Adverse Reaction (Severe, Verified 09/12/25 09:51) ANAPHALEXIS REACTION codeine Adverse Reaction (Mild, Verified 09/12/25 09:51) RASH Review Of Systems Changes in ROS: see HPI Vital Signs Vital Signs: Vital Signs Temperature 98.1 F Pulse Rate 98 Pulse Rate 107 Pulse Rate 100 Pulse Rate 102 Pulse Rate 102 Pulse Rate 104 Pulse Rate 109 Pulse Rate 107 Pulse Rate 101 Pulse Rate 100 Pulse Rate 101 Pulse Rate 99 Pulse Rate 102 Pulse Rate 102 Pulse Rate 106 Pulse Rate 104 Pulse Rate 98 Pulse Rate 98 Pulse Rate 102 Pulse Rate 99 Pulse Rate 101 Respiratory Rate 19 Respiratory Rate 27 Respiratory Rate 22 Respiratory Rate 20 Respiratory Rate 26 Respiratory Rate 20 Respiratory Rate 27 Respiratory Rate 32 Respiratory Rate 20 Respiratory Rate 19 Respiratory Rate 19 Respiratory Rate 20 Respiratory Rate 30 Respiratory Rate 23 Respiratory Rate 20 Respiratory Rate 28 Respiratory Rate 26 Respiratory Rate 25 Respiratory Rate 23 Respiratory Rate 19 Respiratory Rate 19 Respiratory Rate 26 Respiratory Rate 20 Respiratory Rate 23 Blood Pressure 169/78 Blood Pressure 162/80 Blood Pressure 165/86 Blood Pressure 165/71 Blood Pressure 154/85 Blood Pressure 169/84 Blood Pressure 149/75 Blood Pressure 153/83 Blood Pressure 178/85 Blood Pressure 165/79 Blood Pressure 165/79 Blood Pressure 168/91 Blood Pressure 172/87 O2 Sat by Pulse Oximetry 96 O2 Sat by Pulse Oximetry 97 O2 Sat by Pulse Oximetry 97 O2 Sat by Pulse Oximetry 97 O2 Sat by Pulse Oximetry 97 O2 Sat by Pulse Oximetry 97 O2 Sat by Pulse Oximetry 97 O2 Sat by Pulse Oximetry 98 O2 Sat by Pulse Oximetry 96 O2 Sat by Pulse Oximetry 91 O2 Sat by Pulse Oximetry 95 O2 Sat by Pulse Oximetry 94 O2 Sat by Pulse Oximetry 96 O2 Sat by Pulse Oximetry 98 O2 Sat by Pulse Oximetry 98 O2 Sat by Pulse Oximetry 98 O2 Sat by Pulse Oximetry 97 O2 Sat by Pulse Oximetry 97 O2 Sat by Pulse Oximetry 98 Physical Exam Oriented: Normal Eyes: Normal Ear: Normal Nose: Normal Throat: Normal Respiratory: Normal Cardiovascular: Normal GI:Auscultation: Decreased GI: Tenderness: Diffuse (Abdomen is soft with diffuse tenderness) Speech Pattern: Clear and Appropriate Laboratory and Diagnostics 09/17/25 05:15 09/17/25 05:15 Labs: 09/13/25 08:09 Sputum - Endotracheal Wash Sputum Culture - Final Klebsiella Rhinoscleromatis 09/13/25 08:09 Sputum - Endotracheal Wash - Final 09/12/25 15:46 Peritoneal Fluid Wound Gram Stain - Final 09/12/25 15:46 Peritoneal Fluid Wound Culture - Final Escherichia Coli 09/12/25 15:28 Peritoneal Fluid Wound Gram Stain - Final 09/12/25 15:28 Peritoneal Fluid Wound Culture - Final Escherichia Coli 09/12/25 11:19 Urine,Catheterized Urine Culture - Final 09/12/25 10:30 Blood Blood Culture Gram Stain - Final 09/12/25 10:30 Blood Blood Culture - Final Escherichia Coli 09/12/25 09:57 Blood Blood Culture Gram Stain - Final 09/12/25 09:57 Blood Blood Culture - Final Escherichia Coli Laboratory WBC 18.8 X10^3/uL (3.6-10.0) H 09/17/25 05:15 RBC 4.13 X10^6/uL (3.5-5.4) 09/17/25 05:15 Hgb 11.1 g/dL (12.0-16.0) L 09/17/25 05:15 Hct 33.1 % (36.0-47.0) L 09/17/25 05:15 MCV 80.2 fL (80.0-100.0) 09/17/25 05:15 MCH 26.9 pg (27.0-34.0) L 09/17/25 05:15 MCHC 33.5 g/dL (33.0-35.0) 09/17/25 05:15 RDW 16.4 % (11.6-16.5) 09/17/25 05:15 Plt Count 97 X10^3/uL (150.0-450.0) L 09/17/25 05:15 Plt Count Comment Decreased (ADEQUATE) A 09/17/25 05:15 MPV 8.7 fL (7.4-11.0) 09/17/25 05:15 Neut % (Auto) 89.9 % (42.0-75.0) H 09/17/25 05:15 Lymph % (Auto) 3.3 % (21.0-51.0) L 09/17/25 05:15 [place] % (Auto) 6.4 % (0.0-13.0) 09/17/25 05:15 Eos % (Auto) 0.2 % (0.9-2.9) L 09/17/25 05:15 Baso % (Auto) 0.2 % (0.2-1.0) 09/17/25 05:15 Neut # (Auto) 16.9 x10^3/uL (2.2-4.8) H 09/17/25 05:15 Lymph # (Auto) 0.6 X10^3/uL (1.3-2.9) L 09/17/25 05:15 [place] # (Auto) 1.2 x10^3/uL (0.3-0.8) H 09/17/25 05:15 Eos # (Auto) 0.0 x10^3/uL (0.0-0.2) 09/17/25 05:15 Baso # (Auto) 0.0 X10^3/uL (0.0-0.1) 09/17/25 05:15 Absolute Nucleated RBC 0.3 /100WBC 09/17/25 05:15 Total Counted 100 09/17/25 05:15 Neutrophils % (Manual) 87 % (39-76) H 09/17/25 05:15 Band Neutrophils % 9 % (0-10) 09/15/25 04:02 Lymphocytes % (Manual) 7 % (13-43) L 09/17/25 05:15 Monocytes % (Manual) 6 % (4-9) 09/17/25 05:15 Eosinophils % (Manual) 1 % (0-6) 09/15/25 04:02 Metamyelocytes % 2 09/15/25 04:02 Myelocytes % 2 09/15/25 04:02 Plt Morphology Comment Normal (NORMAL) 09/17/25 05:15 RBC Morphology Abnormal (NORMAL) A 09/17/25 05:15 Hypochromasia Slight A 09/17/25 05:15 Target Cells Present 09/17/25 05:15 PT 12.8 SECONDS (11.8-14.3) 09/16/25 04:18 INR Target Range - 09/16/25 04:18 INR 0.95 (0.8-1.3) 09/16/25 04:18 APTT 27.1 SECONDS (22.9-36.5) 09/12/25 09:57 PTT Comment - 09/12/25 09:57 Sample Site Lrad 09/17/25 13:47 ABG pH 7.500 (7.35-7.45) H 09/17/25 13:47 ABG pCO2 42.0 mmHg (35.0-45.0) 09/17/25 13:47 ABG pO2 61.0 mmHg (80.0-100.0) L 09/17/25 13:47 ABG HCO3 32.8 mmol/L (22-26) H* 09/17/25 13:47 ABG O2 Saturation 93.0 % (90-100) 09/17/25 13:47 ABG Base Excess 8.7 mmol/L (-2.0-2.0) H 09/17/25 13:47 Kevin Test Pos 09/17/25 13:47 A-a Gradient 86.0 mmHg 09/17/25 13:47 FiO2 28.0 09/17/25 13:47 Blood Gas Comments Pt adolph well elj cdn 09/17/25 13:47 Sodium 141 mmol/L (136-145) 09/17/25 05:15 Corrected Sodium 141 mmol/L (136-145) 09/17/25 05:15 Potassium 3.1 mmol/L (3.5-5.1) L 09/17/25 05:15 Chloride 104 mmol/L (98-107) 09/17/25 05:15 Carbon Dioxide 29.8 mmol/L (21-32) 09/17/25 05:15 BUN 11 mg/dL (7-18) 09/17/25 05:15 Creatinine 0.48 mg/dL (0.55-1.02) L 09/17/25 05:15 Est GFR (MDRD) Af Amer > 60 (>60) 09/17/25 05:15 Est GFR (MDRD) Non-Af > 60 (>60) 09/17/25 05:15 Glucose 119 mg/dL (65-99) H 09/17/25 05:15 POC Glucose (mg/dL) 113 mg/dL (65-99) H 09/16/25 06:16 Lactic Acid 1.2 mmol/L (0.4-2.0) 09/16/25 04:18 Calcium 8.3 mg/dL (8.5-10.1) L 09/17/25 05:15 Corrected Calcium 10.0 mg/dL (8.5-10.1) 09/17/25 05:15 Magnesium 1.8 mg/dL (2.0-2.9) L 09/17/25 05:15 Total Bilirubin 0.60 mg/dL (0.2-1.0) 09/17/25 05:15 AST 23 Units/L (15-37) 09/17/25 05:15 ALT 18 Units/L (12-78) 09/17/25 05:15 Alkaline Phosphatase 125 Units/L (46-116) H 09/17/25 05:15 Troponin I High Sens 33.8 ng/L (4.0-60.0) 09/12/25 11:55 Total Protein 5.5 g/dL (6.4-8.2) L 09/17/25 05:15 Albumin 1.9 g/dL (3.4-5.0) L 09/17/25 05:15 Globulin 3.6 g/dL (2.5-4.5) 09/17/25 05:15 Albumin/Globulin Ratio 0.5 Ratio (1.1-2.1) L 09/17/25 05:15 Triglycerides 103 mg/dL (0-150) 09/13/25 04:30 Cholesterol < 50 mg/dL (0-200) 09/13/25 04:30 LDL Cholesterol, Calc 3 mg/dL (0-100) 09/13/25 04:30 HDL Cholesterol 26 mg/dL (40-60) L 09/13/25 04:30 Cholesterol/HDL Ratio 1.9 (0.0-5.0) 09/13/25 04:30 Amylase 215 Units/L (25-115) H 09/12/25 09:57 Lipase 26 Units/L (16-77) 09/12/25 09:57 Specimen Type Catherized urine 09/12/25 11:19 Urine Color Dark yellow (YELLOW) 09/12/25 11:19 Urine Appearance Clear (CLEAR) 09/12/25 11:19 Urine pH 5.0 (5.0 - 8.0) 09/12/25 11:19 Ur Specific [place] 1.025 (1.000-1.030) 09/12/25 11:19 Urine Protein 3+ (NEGATIVE) 09/12/25 11:19 Urine Glucose (UA) Negative (NEGATIVE) 09/12/25 11:19 Urine Ketones Negative (NEGATIVE) 09/12/25 11:19 Urine Blood 1+ (NEGATIVE) 09/12/25 11:19 Urine Nitrite Negative (NEGATIVE) 09/12/25 11:19 Urine Bilirubin 1+ (NEGATIVE) 09/12/25 11:19 Urine Urobilinogen 1+ (NORMAL) 09/12/25 11:19 Ur Leukocyte Esterase 1+ (NEGATIVE) 09/12/25 11:19 Urine RBC 5-10 /HPF (0-3) A 09/12/25 11:19 Urine WBC 0-2 /HPF (0-5) 09/12/25 11:19 Ur Squamous Epith Cells Rare /HPF (NEGATIVE) 09/12/25 11:19 Amorphous Sediment Trace /HPF (NEGATIVE) 09/12/25 11:19 Urine Bacteria Trace /HPF (NEGATIVE) 09/12/25 11:19 Ur Culture Indicated? Yes/culture set up 09/12/25 11:19 Random Vancomycin 6.0 ug/mL 09/13/25 08:23 Blood Type O POSITIVE 09/12/25 14:49 Antibody Screen Negative 09/12/25 14:49 Assessment and Plan 1: Septic shock secondary to perforated sigmoid colon with fecal peritonitis. Status post laparotomy, closure of perforated sigmoid colon, diverting colostomy, thorough irrigation and drainage of the peritoneum. Patient is out of her septic shock, maintaining her blood pressure and oxygenation, good urine output with a back to normal renal function. metabolic alcalosis . On TPN 80 cc an hour, potassium and magnesium supplement. Will advance diet,add KCL, Out of bed and start physical therapy. Incentive spirometer, and same postoperative care. Problem Patient Problems: Patient Problems Tachycardia (Acute) R00.0 Hypotension (Acute) I95.9 Sepsis (Acute) A41.9 Perforated small intestine (Acute) K63.1
[2025-09-18] MEDS: DRUG FILTER EXTENSION SET ONE (01:57)
[2025-09-18 05:29] LABS: MEAN PLATELET VOLUME 8.4 fL (7.4-11.0); RED CELL DISTRIBUTION WIDTH 16.8 % (11.6-16.5)
[2025-09-18 05:41] LABS: COR CA(FOR HYPOALB) 10.1 mg/dL (8.5-10.1); COR NA(FOR HYPERGLY) 136 mmol/L (136-145); CREATININE 0.49 mg/dL (0.55-1.02); eGFR NON BLACK RACES > 60 (>60)
[2025-09-18 05:45] LABS: PLATELET MORPHOLOGY COMMENT NORMAL (NORMAL)
--- NOTE | 2025-09-18 09:39 | PCM.PROG ---
Progress Note Progress Note for Day of Date of Exam: 09/18/25 Subjective Subjective: Patient is a 55-year-old female that was admitted for sepsis due to bowel perforation. She is status post surgery with now a colostomy. This morning, she is resting comfortably in bed. No acute events overnight. Her colostomy has been functioning. Labs/imaging: WBC 24, hemoglobin 10.9, platelets 146, sodium 136, potassium 3.2, creatinine 0.49, glucose 114. Patient is currently on a soft diet. She is on IV antibiotics Invanz that is covering for E. coli found in her blood and peritoneal fluid. Her sputum culture positive for Klebsiella Rhino. Her leukocytosis continues to be elevated, however she has remained afebrile. Will repeat chest x-ray, UA, blood cultures, and lactic acid. General surgery has ordered CT abdomen pelvis. Will also add on IV vancomycin. Continue to closely monitor vitals. Otherwise, continue current treatment plan. Use incentive spirometer. Advance diet per surgery. Continue closely monitor and follow-up labs/imaging. Time spent for clinical assessment, reviewing labs/imaging, physical exam, decision making and documentation greater than 45 mins. Past Medical Family Social History Allergies: Allergies amoxicillin Adverse Reaction (Severe, Verified 09/12/25 09:51) ANAPHALEXIS REACTION Penicillins Adverse Reaction (Severe, Verified 09/12/25 09:51) ANAPHALEXIS REACTION codeine Adverse Reaction (Mild, Verified 09/12/25 09:51) RASH Review of Systems ROS changes noted: see HPI Vital Signs and I&O's Vital Signs: Vital Signs Temperature 97.3 F Temperature 98.1 F Pulse Rate 101 Pulse Rate 109 Pulse Rate 104 Pulse Rate 105 Pulse Rate 98 Pulse Rate 102 Pulse Rate 99 Pulse Rate 106 Pulse Rate 110 Pulse Rate 103 Pulse Rate 109 Pulse Rate 104 Pulse Rate 100 Respiratory Rate 23 Respiratory Rate 27 Respiratory Rate 27 Respiratory Rate 21 Respiratory Rate 27 Respiratory Rate 18 Respiratory Rate 19 Respiratory Rate 22 Respiratory Rate 23 Respiratory Rate 25 Respiratory Rate 23 Respiratory Rate 27 Respiratory Rate 29 Respiratory Rate 25 Respiratory Rate 25 Respiratory Rate 21 Blood Pressure 140/75 Blood Pressure 126/77 Blood Pressure 139/81 Blood Pressure 143/78 Blood Pressure 144/66 Blood Pressure 142/67 Blood Pressure 153/67 Blood Pressure 149/74 Blood Pressure 144/67 O2 Sat by Pulse Oximetry 94 O2 Sat by Pulse Oximetry 95 O2 Sat by Pulse Oximetry 96 O2 Sat by Pulse Oximetry 96 O2 Sat by Pulse Oximetry 95 O2 Sat by Pulse Oximetry 96 O2 Sat by Pulse Oximetry 95 O2 Sat by Pulse Oximetry 95 O2 Sat by Pulse Oximetry 96 O2 Sat by Pulse Oximetry 96 O2 Sat by Pulse Oximetry 96 O2 Sat by Pulse Oximetry 95 Intake and Output: Intake & Output 09/15/25 09/16/25 09/17/25 09/18/25 23:59 23:59 23:59 22:59 Intake Total 4177 / 4177 5677 / 5677 6557 / 6557 1445 / 1445 Output Total 2273 / 2321 5570 / 5695 4475 / 4475 1850 / 1850 Balance 1904 / 1856 107 / -18 2082 / 2082 -405 / -405 Physical Exam Oriented: Normal Eyes: Normal Ear: Normal Nose: Normal Throat: Normal Respiratory: Normal Cardiovascular: Normal Auscultation: Bowel Sounds: Decreased Tenderness: Diffuse (Abdomen is soft with diffuse tenderness) Speech Pattern: Clear and Appropriate Laboratory and Diagnostics 09/18/25 05:10 09/18/25 05:10 Labs: 09/13/25 08:09 Sputum - Endotracheal Wash Sputum Culture - Final Klebsiella Rhinoscleromatis 09/13/25 08:09 Sputum - Endotracheal Wash - Final 09/12/25 15:46 Peritoneal Fluid Wound Gram Stain - Final 09/12/25 15:46 Peritoneal Fluid Wound Culture - Final Escherichia Coli 09/12/25 15:28 Peritoneal Fluid Wound Gram Stain - Final 09/12/25 15:28 Peritoneal Fluid Wound Culture - Final Escherichia Coli 09/12/25 11:19 Urine,Catheterized Urine Culture - Final 09/12/25 10:30 Blood Blood Culture Gram Stain - Final 09/12/25 10:30 Blood Blood Culture - Final Escherichia Coli 09/12/25 09:57 Blood Blood Culture Gram Stain - Final 09/12/25 09:57 Blood Blood Culture - Final Escherichia Coli Laboratory WBC 24.3 X10^3/uL (3.6-10.0) H 09/18/25 05:10 RBC 4.10 X10^6/uL (3.5-5.4) 09/18/25 05:10 Hgb 10.9 g/dL (12.0-16.0) L 09/18/25 05:10 Hct 32.8 % (36.0-47.0) L 09/18/25 05:10 MCV 80.0 fL (80.0-100.0) 09/18/25 05:10 MCH 26.5 pg (27.0-34.0) L 09/18/25 05:10 MCHC 33.1 g/dL (33.0-35.0) 09/18/25 05:10 RDW 16.8 % (11.6-16.5) H 09/18/25 05:10 Plt Count 146 X10^3/uL (150.0-450.0) L 09/18/25 05:10 Plt Count Comment Decreased (ADEQUATE) A 09/18/25 05:10 MPV 8.4 fL (7.4-11.0) 09/18/25 05:10 Neut % (Auto) 87.9 % (42.0-75.0) H 09/18/25 05:10 Lymph % (Auto) 3.5 % (21.0-51.0) L 09/18/25 05:10 [place] % (Auto) 8.2 % (0.0-13.0) 09/18/25 05:10 Eos % (Auto) 0.2 % (0.9-2.9) L 09/18/25 05:10 Baso % (Auto) 0.2 % (0.2-1.0) 09/18/25 05:10 Neut # (Auto) 21.4 x10^3/uL (2.2-4.8) H 09/18/25 05:10 Lymph # (Auto) 0.8 X10^3/uL (1.3-2.9) L 09/18/25 05:10 [place] # (Auto) 2.0 x10^3/uL (0.3-0.8) H 09/18/25 05:10 Eos # (Auto) 0.0 x10^3/uL (0.0-0.2) 09/18/25 05:10 Baso # (Auto) 0.0 X10^3/uL (0.0-0.1) 09/18/25 05:10 Absolute Nucleated RBC 0.1 /100WBC 09/18/25 05:10 Total Counted 100 09/18/25 05:10 Neutrophils % (Manual) 85 % (39-76) H 09/18/25 05:10 Band Neutrophils % 9 % (0-10) 09/15/25 04:02 Lymphocytes % (Manual) 8 % (13-43) L 09/18/25 05:10 Monocytes % (Manual) 7 % (4-9) 09/18/25 05:10 Eosinophils % (Manual) 1 % (0-6) 09/15/25 04:02 Metamyelocytes % 2 09/15/25 04:02 Myelocytes % 2 09/15/25 04:02 Plt Morphology Comment Normal (NORMAL) 09/18/25 05:10 RBC Morphology Normal (NORMAL) 09/18/25 05:10 Hypochromasia Slight A 09/17/25 05:15 Target Cells Present 09/17/25 05:15 PT 12.8 SECONDS (11.8-14.3) 09/16/25 04:18 INR Target Range - 09/16/25 04:18 INR 0.95 (0.8-1.3) 09/16/25 04:18 APTT 27.1 SECONDS (22.9-36.5) 09/12/25 09:57 PTT Comment - 09/12/25 09:57 Sample Site Lrad 09/17/25 13:47 ABG pH 7.500 (7.35-7.45) H 09/17/25 13:47 ABG pCO2 42.0 mmHg (35.0-45.0) 09/17/25 13:47 ABG pO2 61.0 mmHg (80.0-100.0) L 09/17/25 13:47 ABG HCO3 32.8 mmol/L (22-26) H* 09/17/25 13:47 ABG O2 Saturation 93.0 % (90-100) 09/17/25 13:47 ABG Base Excess 8.7 mmol/L (-2.0-2.0) H 09/17/25 13:47 Kevin Test Pos 09/17/25 13:47 A-a Gradient 86.0 mmHg 09/17/25 13:47 FiO2 28.0 09/17/25 13:47 Blood Gas Comments Pt adolph well elj cdn 09/17/25 13:47 Sodium 136 mmol/L (136-145) 09/18/25 05:10 Corrected Sodium 136 mmol/L (136-145) 09/18/25 05:10 Potassium 3.2 mmol/L (3.5-5.1) L 09/18/25 05:10 Chloride 100 mmol/L (98-107) 09/18/25 05:10 Carbon Dioxide 31.6 mmol/L (21-32) 09/18/25 05:10 BUN 11 mg/dL (7-18) 09/18/25 05:10 Creatinine 0.49 mg/dL (0.55-1.02) L 09/18/25 05:10 Est GFR (MDRD) Af Amer > 60 (>60) 09/18/25 05:10 Est GFR (MDRD) Non-Af > 60 (>60) 09/18/25 05:10 Glucose 114 mg/dL (65-99) H 09/18/25 05:10 POC Glucose (mg/dL) 113 mg/dL (65-99) H 09/16/25 06:16 Lactic Acid 1.2 mmol/L (0.4-2.0) 09/16/25 04:18 Calcium 8.3 mg/dL (8.5-10.1) L 09/18/25 05:10 Corrected Calcium 10.1 mg/dL (8.5-10.1) 09/18/25 05:10 Magnesium 1.6 mg/dL (2.0-2.9) L 09/18/25 05:10 Total Bilirubin 0.60 mg/dL (0.2-1.0) 09/18/25 05:10 AST 25 Units/L (15-37) 09/18/25 05:10 ALT 20 Units/L (12-78) 09/18/25 05:10 Alkaline Phosphatase 142 Units/L (46-116) H 09/18/25 05:10 Troponin I High Sens 33.8 ng/L (4.0-60.0) 09/12/25 11:55 Total Protein 5.4 g/dL (6.4-8.2) L 09/18/25 05:10 Albumin 1.8 g/dL (3.4-5.0) L 09/18/25 05:10 Globulin 3.6 g/dL (2.5-4.5) 09/18/25 05:10 Albumin/Globulin Ratio 0.5 Ratio (1.1-2.1) L 09/18/25 05:10 Triglycerides 103 mg/dL (0-150) 09/13/25 04:30 Cholesterol < 50 mg/dL (0-200) 09/13/25 04:30 LDL Cholesterol, Calc 3 mg/dL (0-100) 09/13/25 04:30 HDL Cholesterol 26 mg/dL (40-60) L 09/13/25 04:30 Cholesterol/HDL Ratio 1.9 (0.0-5.0) 09/13/25 04:30 Amylase 215 Units/L (25-115) H 09/12/25 09:57 Lipase 26 Units/L (16-77) 09/12/25 09:57 Specimen Type Catherized urine 09/12/25 11:19 Urine Color Dark yellow (YELLOW) 09/12/25 11:19 Urine Appearance Clear (CLEAR) 09/12/25 11:19 Urine pH 5.0 (5.0 - 8.0) 09/12/25 11:19 Ur Specific [place] 1.025 (1.000-1.030) 09/12/25 11:19 Urine Protein 3+ (NEGATIVE) 09/12/25 11:19 Urine Glucose (UA) Negative (NEGATIVE) 09/12/25 11:19 Urine Ketones Negative (NEGATIVE) 09/12/25 11:19 Urine Blood 1+ (NEGATIVE) 09/12/25 11:19 Urine Nitrite Negative (NEGATIVE) 09/12/25 11:19 Urine Bilirubin 1+ (NEGATIVE) 09/12/25 11:19 Urine Urobilinogen 1+ (NORMAL) 09/12/25 11:19 Ur Leukocyte Esterase 1+ (NEGATIVE) 09/12/25 11:19 Urine RBC 5-10 /HPF (0-3) A 09/12/25 11:19 Urine WBC 0-2 /HPF (0-5) 09/12/25 11:19 Ur Squamous Epith Cells Rare /HPF (NEGATIVE) 09/12/25 11:19 Amorphous Sediment Trace /HPF (NEGATIVE) 09/12/25 11:19 Urine Bacteria Trace /HPF (NEGATIVE) 09/12/25 11:19 Ur Culture Indicated? Yes/culture set up 09/12/25 11:19 Random Vancomycin 6.0 ug/mL 09/13/25 08:23 Blood Type O POSITIVE 09/12/25 14:49 Antibody Screen Negative 09/12/25 14:49 Plan (1) Sepsis: Status: Acute Qualifiers: Sepsis acute organ dysfunction status: unspecified Sepsis type: E scherichia coli Qualified Code(s): A41.51 - Sepsis due to Escherichia coli [E. coli] (2) Perforated small intestine: Status: Acute (3) Colostomy in place: Status: Acute
[2025-09-18 09:46] LABS: BLOOD/HEMOGLOBIN,URINE NEGATIVE (NEGATIVE); LEUKOCYTE ESTERASE ,URINE NEGATIVE (NEGATIVE); NITRITES,URINE NEGATIVE (NEGATIVE)
[2025-09-18] MEDS ORDERED: DEXTROSE 10% 1,000 ML IV PRN (10:06)
[2025-09-18] MEDS ORDERED: NovoLIN R (or HumuLIN R) SUBCUT PRN (10:06)
[2025-09-18 10:12] LABS: APPEARANCE,URINE CLEAR (CLEAR)
[2025-09-18 10:23] LABS: SQUAMOUS EPITHELIAL CELL,UR NEGATIVE /HPF (NEGATIVE)
[2025-09-18] MEDS: VANCOMYCIN HCL 1 G in D5W 250 ML IV 250 ML IV SCH (11:15)
[2025-09-18 11:18] LABS: PHOSPHORUS 0.6 mg/dL (2.6-4.7)
[2025-09-18] MEDS: OMNIPAQUE 350 mg/mL 100 mL BTL IVP NR (12:15)
--- NOTE | 2025-09-18 12:48 | CT ---
EXAMINATION: ABDCMEN/PELVIS WITH CON HISTORY: elevated WBC, s/p surgery, sepsis; pt c/o generalized abdominal pain . COMPARISON: CT abdomen and pelvis 09/12/2025 TECHNIQUE: Postcontrast CT abdomen and pelvis was performed.. Reformatted images were obtained as well. Lack of oral contrast limits diagnostic sensitivity The above CT scan was done with automated exposure control and the mA and kV was adjusted to obtain quality images according to patient size. FINDINGS: Lung bases: There are small effusions with atelectasis or developing pneumonia in the lung bases. Liver: No acute findings. Trace of pneumoperitoneum along the dome of the liver which is likely postsurgical. This is decreased from the prior study. GB/Biliary: 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. No dilated ducts Spleen: Normal size and density Pancreas: No acute findings. No pseudocyst or dilated duct Adrenal Glands: No mass Kidneys: No obstructing stone, hydronephrosis or solid lesion. Subcentimeter low-density lesions too small to classify by CT criteria. Abdominal aorta: Tapers and enhances normally. Mesenteric vessels are patent. Retroperitoneum: No pathologically enlarged lymph nodes Bowel: There is an enterostomy in the mid abdomen along the midline. Trace of pneumoperitoneum is likely postoperative. This is decreased from the prior study. There is a trace of fluid along the liver and pericolic gutters. This is decreased. No thickened bowel, pneumatosis, organized abscess is present. There are multiple mildly distended gas and fluid-filled loops of small and large bowel with no zone of transition. Findings likely represent ileus. There is stool to the level of the rectum. Appendix not seen. No CT evidence for appendicitis. Postoperative changes and surgical clips in the midline along the anterior abdominal wall. Bladder/: Ureters unremarkable. Gas within the bladder is likely related to instrumentation. Hysterectomy. No pelvic or adnexal mass noted. Osseous: Multilevel degenerative changes in the spine. No acute findings or bony lesions. IMPRESSION: Small bilateral effusions with atelectasis or developing pneumonia in the lung bases. Midline enterostomy. Multiple gas and fluid-filled loops of bowel with no zone of transition suggests ileus. No thickened bowel. Gas and stool to the level of the rectum. No CT evidence for organized abscess. Trace of pneumoperitoneum and fluid within the abdomen is likely postoperative. This is decreased from the prior study. Gas within the bladder is likely related to instrumentation. THIS IS AN ELECTRONICALLY VERIFIED FINAL REPORT 09/18/2025 12:40 PM - Electronically signed by Cayetano Casanova MD
[2025-09-18] MEDS ORDERED: K-DUR TAB 20 MEQ PO ONE ×2 (13:04→15:16)
[2025-09-18] MEDS ORDERED: MAG-OX TAB ONE ×2 (13:05→15:16)
--- NOTE | 2025-09-18 13:13 | RAD ---
EXAM: CHEST HISTORY: sob, elevated wbc; pt c/o sob COMPARISON: September 16, 2025. TECHNIQUE: Frontal view of the chest was submitted for interpretation. FINDINGS: Right-sided central catheter is stable. The cardiomediastinal silhouette is within normal limits. Lungs show trace left pleural effusion. IMPRESSION: Trace left pleural effusion again noted. THIS IS AN ELECTRONICALLY VERIFIED FINAL REPORT 09/18/2025 1:09 PM - Electronically signed by Kurt Robb MD
[2025-09-18] MEDS: K-DUR TAB 20 MEQ PO SCH (13:18)
[2025-09-18] MEDS: MAG-OX TAB PO SCH (13:19)
[2025-09-18] MEDS: CONSULT PHARMACY - POTASSIUM & MAGNESIUM XX SCH (13:19)
--- NOTE | 2025-09-18 14:59 | DR.PROGNOT ---
HOSPITAL PROGRESS NOTE Progress Note for Day of: Progress Note Date: 09/18/25 Chief Complaint Chief Complaint: Po day 5. Patient seems to be stable, tolerating diet.no nausea or vomiting . Urine output is very good. White count is up to 24.3 with shift to the left, hemoglobin 10,9, platelets count is improving at 144 today PT/INR are normal. Her blood gas showed some improvement to with pH 7.5, pCO2 42, pO2 61, bicarb 29, base excess 8.7, potassium 3.2, BUN/creatinine are normal albumin 1.8.U/A normal C XRay trace pleural effusion . CT , no abscess formation , mild ileus . possible early pneumonia .. Patient is alert and cooperative, Abdomen is soft with positive bowel sounds, colostomy is functioning now.no wound infection . Past Medical Family Social History Allergies: Allergies amoxicillin Adverse Reaction (Severe, Verified 09/12/25 09:51) ANAPHALEXIS REACTION Penicillins Adverse Reaction (Severe, Verified 09/12/25 09:51) ANAPHALEXIS REACTION codeine Adverse Reaction (Mild, Verified 09/12/25 09:51) RASH Review Of Systems Changes in ROS: see HPI Vital Signs Vital Signs: Vital Signs Temperature 99.4 F Temperature 97.3 F Pulse Rate 109 Pulse Rate 109 Pulse Rate 107 Pulse Rate 118 Pulse Rate 111 Pulse Rate 105 Pulse Rate 106 Pulse Rate 103 Pulse Rate 103 Pulse Rate 103 Pulse Rate 107 Pulse Rate 101 Pulse Rate 109 Pulse Rate 104 Pulse Rate 105 Pulse Rate 98 Pulse Rate 102 Pulse Rate 99 Respiratory Rate 21 Respiratory Rate 28 Respiratory Rate 23 Respiratory Rate 24 Respiratory Rate 24 Respiratory Rate 27 Respiratory Rate 22 Respiratory Rate 22 Respiratory Rate 20 Respiratory Rate 21 Respiratory Rate 28 Respiratory Rate 31 Respiratory Rate 23 Respiratory Rate 27 Respiratory Rate 27 Respiratory Rate 21 Respiratory Rate 27 Respiratory Rate 18 Blood Pressure 144/72 Blood Pressure 144/72 Blood Pressure 140/70 Blood Pressure 141/65 Blood Pressure 152/70 Blood Pressure 146/70 Blood Pressure 140/75 Blood Pressure 126/77 Blood Pressure 139/81 Blood Pressure 143/78 O2 Sat by Pulse Oximetry 94 O2 Sat by Pulse Oximetry 97 O2 Sat by Pulse Oximetry 98 O2 Sat by Pulse Oximetry 97 O2 Sat by Pulse Oximetry 99 O2 Sat by Pulse Oximetry 99 O2 Sat by Pulse Oximetry 98 O2 Sat by Pulse Oximetry 98 O2 Sat by Pulse Oximetry 99 O2 Sat by Pulse Oximetry 98 O2 Sat by Pulse Oximetry 96 O2 Sat by Pulse Oximetry 94 O2 Sat by Pulse Oximetry 95 O2 Sat by Pulse Oximetry 96 O2 Sat by Pulse Oximetry 96 O2 Sat by Pulse Oximetry 95 O2 Sat by Pulse Oximetry 96 Physical Exam Oriented: Normal Eyes: Normal Ear: Normal Nose: Normal Throat: Normal Respiratory: Normal Cardiovascular: Normal GI:Auscultation: Decreased GI:Palpation: Other (Diffuse tenderness with hypoactive bowel sounds) GI: Tenderness: Diffuse (Abdomen is soft with diffuse tenderness) Speech Pattern: Clear and Appropriate Laboratory and Diagnostics 09/18/25 05:10 09/18/25 05:10 Labs: 09/13/25 08:09 Sputum - Endotracheal Wash Sputum Culture - Final Klebsiella Rhinoscleromatis 09/13/25 08:09 Sputum - Endotracheal Wash - Final 09/12/25 15:46 Peritoneal Fluid Wound Gram Stain - Final 09/12/25 15:46 Peritoneal Fluid Wound Culture - Final Escherichia Coli 09/12/25 15:28 Peritoneal Fluid Wound Gram Stain - Final 09/12/25 15:28 Peritoneal Fluid Wound Culture - Final Escherichia Coli 09/12/25 11:19 Urine,Catheterized Urine Culture - Final 09/12/25 10:30 Blood Blood Culture Gram Stain - Final 09/12/25 10:30 Blood Blood Culture - Final Escherichia Coli 09/12/25 09:57 Blood Blood Culture Gram Stain - Final 09/12/25 09:57 Blood Blood Culture - Final Escherichia Coli Laboratory WBC 24.3 X10^3/uL (3.6-10.0) H 09/18/25 05:10 RBC 4.10 X10^6/uL (3.5-5.4) 09/18/25 05:10 Hgb 10.9 g/dL (12.0-16.0) L 09/18/25 05:10 Hct 32.8 % (36.0-47.0) L 09/18/25 05:10 MCV 80.0 fL (80.0-100.0) 09/18/25 05:10 MCH 26.5 pg (27.0-34.0) L 09/18/25 05:10 MCHC 33.1 g/dL (33.0-35.0) 09/18/25 05:10 RDW 16.8 % (11.6-16.5) H 09/18/25 05:10 Plt Count 146 X10^3/uL (150.0-450.0) L 09/18/25 05:10 Plt Count Comment Decreased (ADEQUATE) A 09/18/25 05:10 MPV 8.4 fL (7.4-11.0) 09/18/25 05:10 Neut % (Auto) 87.9 % (42.0-75.0) H 09/18/25 05:10 Lymph % (Auto) 3.5 % (21.0-51.0) L 09/18/25 05:10 [place] % (Auto) 8.2 % (0.0-13.0) 09/18/25 05:10 Eos % (Auto) 0.2 % (0.9-2.9) L 09/18/25 05:10 Baso % (Auto) 0.2 % (0.2-1.0) 09/18/25 05:10 Neut # (Auto) 21.4 x10^3/uL (2.2-4.8) H 09/18/25 05:10 Lymph # (Auto) 0.8 X10^3/uL (1.3-2.9) L 09/18/25 05:10 [place] # (Auto) 2.0 x10^3/uL (0.3-0.8) H 09/18/25 05:10 Eos # (Auto) 0.0 x10^3/uL (0.0-0.2) 09/18/25 05:10 Baso # (Auto) 0.0 X10^3/uL (0.0-0.1) 09/18/25 05:10 Absolute Nucleated RBC 0.1 /100WBC 09/18/25 05:10 Total Counted 100 09/18/25 05:10 Neutrophils % (Manual) 85 % (39-76) H 09/18/25 05:10 Band Neutrophils % 9 % (0-10) 09/15/25 04:02 Lymphocytes % (Manual) 8 % (13-43) L 09/18/25 05:10 Monocytes % (Manual) 7 % (4-9) 09/18/25 05:10 Eosinophils % (Manual) 1 % (0-6) 09/15/25 04:02 Metamyelocytes % 2 09/15/25 04:02 Myelocytes % 2 09/15/25 04:02 Plt Morphology Comment Normal (NORMAL) 09/18/25 05:10 RBC Morphology Normal (NORMAL) 09/18/25 05:10 Hypochromasia Slight A 09/17/25 05:15 Target Cells Present 09/17/25 05:15 PT 12.8 SECONDS (11.8-14.3) 09/16/25 04:18 INR Target Range - 09/16/25 04:18 INR 0.95 (0.8-1.3) 09/16/25 04:18 APTT 27.1 SECONDS (22.9-36.5) 09/12/25 09:57 PTT Comment - 09/12/25 09:57 Sample Site Lrad 09/17/25 13:47 ABG pH 7.500 (7.35-7.45) H 09/17/25 13:47 ABG pCO2 42.0 mmHg (35.0-45.0) 09/17/25 13:47 ABG pO2 61.0 mmHg (80.0-100.0) L 09/17/25 13:47 ABG HCO3 32.8 mmol/L (22-26) H* 09/17/25 13:47 ABG O2 Saturation 93.0 % (90-100) 09/17/25 13:47 ABG Base Excess 8.7 mmol/L (-2.0-2.0) H 09/17/25 13:47 Kevin Test Pos 09/17/25 13:47 A-a Gradient 86.0 mmHg 09/17/25 13:47 FiO2 28.0 09/17/25 13:47 Blood Gas Comments Pt adolph well elj cdn 09/17/25 13:47 Sodium 136 mmol/L (136-145) 09/18/25 05:10 Corrected Sodium 136 mmol/L (136-145) 09/18/25 05:10 Potassium 3.2 mmol/L (3.5-5.1) L 09/18/25 05:10 Chloride 100 mmol/L (98-107) 09/18/25 05:10 Carbon Dioxide 31.6 mmol/L (21-32) 09/18/25 05:10 BUN 11 mg/dL (7-18) 09/18/25 05:10 Creatinine 0.49 mg/dL (0.55-1.02) L 09/18/25 05:10 Est GFR (MDRD) Af Amer > 60 (>60) 09/18/25 05:10 Est GFR (MDRD) Non-Af > 60 (>60) 09/18/25 05:10 Glucose 114 mg/dL (65-99) H 09/18/25 05:10 POC Glucose (mg/dL) 113 mg/dL (65-99) H 09/16/25 06:16 Lactic Acid 1.2 mmol/L (0.4-2.0) 09/18/25 09:10 Calcium 8.3 mg/dL (8.5-10.1) L 09/18/25 05:10 Corrected Calcium 10.1 mg/dL (8.5-10.1) 09/18/25 05:10 Phosphorus 0.6 mg/dL (2.6-4.7) L 09/18/25 05:10 Magnesium 1.6 mg/dL (2.0-2.9) L 09/18/25 05:10 Magnesium 1.6 mg/dL (2.0-2.9) L 09/18/25 05:10 Total Bilirubin 0.60 mg/dL (0.2-1.0) 09/18/25 05:10 AST 25 Units/L (15-37) 09/18/25 05:10 ALT 20 Units/L (12-78) 09/18/25 05:10 Alkaline Phosphatase 142 Units/L (46-116) H 09/18/25 05:10 Troponin I High Sens 33.8 ng/L (4.0-60.0) 09/12/25 11:55 Total Protein 5.4 g/dL (6.4-8.2) L 09/18/25 05:10 Albumin 1.8 g/dL (3.4-5.0) L 09/18/25 05:10 Globulin 3.6 g/dL (2.5-4.5) 09/18/25 05:10 Albumin/Globulin Ratio 0.5 Ratio (1.1-2.1) L 09/18/25 05:10 Triglycerides 80 mg/dL (0-150) 09/18/25 05:10 Cholesterol < 50 mg/dL (0-200) 09/13/25 04:30 LDL Cholesterol, Calc 3 mg/dL (0-100) 09/13/25 04:30 HDL Cholesterol 26 mg/dL (40-60) L 09/13/25 04:30 Cholesterol/HDL Ratio 1.9 (0.0-5.0) 09/13/25 04:30 Amylase 215 Units/L (25-115) H 09/12/25 09:57 Lipase 26 Units/L (16-77) 09/12/25 09:57 Specimen Type Clean catch urine 09/18/25 09:34 Urine Color Pale yellow (YELLOW) 09/18/25 09:34 Urine Appearance Clear (CLEAR) 09/18/25 09:34 Urine pH 7.0 (5.0 - 8.0) 09/18/25 09:34 Ur Specific [place] 1.015 (1.000-1.030) 09/18/25 09:34 Urine Protein 1+ (NEGATIVE) 09/18/25 09:34 Urine Glucose (UA) Negative (NEGATIVE) 09/18/25 09:34 Urine Ketones Negative (NEGATIVE) 09/18/25 09:34 Urine Blood Negative (NEGATIVE) 09/18/25 09:34 Urine Nitrite Negative (NEGATIVE) 09/18/25 09:34 Urine Bilirubin Negative (NEGATIVE) 09/18/25 09:34 Urine Urobilinogen Normal (NORMAL) 09/18/25 09:34 Ur Leukocyte Esterase Negative (NEGATIVE) 09/18/25 09:34 Urine RBC None seen /HPF (0-3) 09/18/25 09:34 Urine WBC None seen /HPF (0-5) 09/18/25 09:34 Ur Squamous Epith Cells Negative /HPF (NEGATIVE) 09/18/25 09:34 Amorphous Sediment Trace /HPF (NEGATIVE) 09/12/25 11:19 Urine Bacteria Negative /HPF (NEGATIVE) 09/18/25 09:34 Ur Culture Indicated? No/not indicated 09/18/25 09:34 Random Vancomycin 6.0 ug/mL 09/13/25 08:23 Blood Type O POSITIVE 09/12/25 14:49 Antibody Screen Negative 09/12/25 14:49 Assessment and Plan 1: Septic shock secondary to perforated sigmoid colon with fecal peritonitis. Status post laparotomy, closure of perforated sigmoid colon, diverting colostomy, thorough irrigation and drainage of the peritoneum. Patient is out of her septic shock, maintaining her blood pressure and oxygenation, good urine output with a back to normal renal function. metabolic alkalosis is improving On TPN 80 cc an hour, potassium and magnesium supplement. same diet, pneumonia protocol. Out of bed and start physical therapy. Incentive spirometer, and same postoperative care. Problem Patient Problems: Patient Problems Tachycardia (Acute) R00.0 Hypotension (Acute) I95.9 Sepsis (Acute) A41.9 Perforated small intestine (Acute) K63.1
[2025-09-18] MEDS: LEVAQUIN PREMIX IV 500 MG 500 MG/100 ML BAG IV SCH (15:33)
[2025-09-18] MEDS: AMBIEN PO PRN (20:58)
[2025-09-18] MEDS: XOPENEX 1.25 MG/3 ML NEBULE NEB SCH (21:07)
[2025-09-18] MEDS: PULMICORT NEB TX 0.5 MG NEB SCH (21:07)
[2025-09-18] MEDS ORDERED: VANCOMYCIN HCL 1 G in D5W 250 ML IV 250 ML IV SCH (22:00)
[2025-09-19 05:01] LABS: MEAN PLATELET VOLUME 8.6 fL (7.4-11.0); RED CELL DISTRIBUTION WIDTH 16.8 % (11.6-16.5)
[2025-09-19 05:05] LABS: CREATININE 0.47 mg/dL (0.55-1.02); eGFR NON BLACK RACES > 60 (>60)
[2025-09-19 05:19] LABS: PLATELET MORPHOLOGY COMMENT NORMAL (NORMAL)
[2025-09-19] MEDS: READI-CAT 2 ONE (08:43)
[2025-09-19] MEDS: OMNIPAQUE 350 mg/mL 100 mL BTL 100 ML ONE (08:43)
[2025-09-19] MEDS: DRUG FILTER EXTENSION SET ONE ×3 (08:44→18:36)
[2025-09-19] MEDS: CYMBALTA PO SCH ×2 (09:49→15:42)
[2025-09-19 09:50] LABS: ABG ALLEN TEST POS; ABG BASE EXCESS 5.7 mmol/L (-2.0-2.0); ABG HCO3 28.6 mmol/L (22-26); ABG OXYGEN SATURATION 94.0 % (90-100); ABG PCO2 35.0 mmHg (35.0-45.0); ABG PH 7.520 (7.35-7.45); ABG PO2 62.0 mmHg (80.0-100.0)
--- NOTE | 2025-09-19 09:53 | CT ---
EXAM: CT HEAD WITHOUT CONTRAST HISTORY: AMS; COMPARISON: MR brain 09/03/2018 TECHNIQUE: Axial CT images were obtained through the brain without contrast. All CT scans at this facility use dose modulation, iterative reconstruction, and/or weight based dosing when appropriate to reduce radiation dose to as low as reasonably achievable. FINDINGS: No evidence of intracranial hemorrhage. No extra-axial collections. No evidence of intracranial mass, mass-effect, midline shift, or herniation. Small hypoattenuating focus in the right basal ganglia corresponds to a prominent perivascular space on the prior MR brain from 09/03/2018. Rawls-white differ entiation is maintained. Sulci and ventricles are within normal limits without evidence of hydrocephalus. New moderate-sized left sphenoid sinus and very small left maxillary sinus retention cysts. Otherwise, the visualized portions of the paranasal sinuses are essentially clear. Mastoid air cells are essentially clear. Calvarium is intact. IMPRESSION: New moderate-sized left sphenoid sinus and very small left maxillary sinus retention cysts. Prominent perivascular space in the right basal ganglia is unchanged from the prior MR brain on 09/03/2018. Otherwise, normal head CT. CT is insensitive for the detection of acute non-hemorrhagic infarcts, and MRI may be considered for further evaluation if clinically warranted. THIS IS AN ELECTRONICALLY VERIFIED FINAL REPORT 09/19/2025 9:50 AM - Electronically signed by Ede Croft
--- NOTE | 2025-09-19 10:51 | DR.PROGNOT ---
HOSPITAL PROGRESS NOTE Progress Note for Day of: Progress Note Date: 09/19/25 Chief Complaint Chief Complaint: Po day 6. Patient seems to be stable, tolerating diet.no nausea or vomiting . Colostomy is functioning well. Urine output is very good. White count is up to 22.3 with shift to the left, hemoglobin 9,9, platelets count is improving at 250 today PT/INR are normal. Her blood gas showed some improvement to with pH 7.52, pCO2 35, pO2 61, bicarb 29, base excess 5.7, potassium 4, BUN/creatinine are normal albumin 1.8.U/A normal C XRay trace pleural effusion . CT , no abscess formation , mild ileus . possible early pneumonia .. Patient is alert and cooperative, Abdomen is soft with positive bowel sounds, colostomy is functioning now.no wound infection . Past Medical Family Social History Allergies: Allergies amoxicillin Adverse Reaction (Severe, Verified 09/12/25 09:51) ANAPHALEXIS REACTION Penicillins Adverse Reaction (Severe, Verified 09/12/25 09:51) ANAPHALEXIS REACTION codeine Adverse Reaction (Mild, Verified 09/12/25 09:51) RASH Review Of Systems Changes in ROS: see HPI Vital Signs Vital Signs: Vital Signs Temperature 98.0 F Temperature 97.5 F Pulse Rate [Right Brachial] 99 Pulse Rate [Right Brachial] 101 Pulse Rate 87 Pulse Rate 101 Respiratory Rate 19 Respiratory Rate 21 Respiratory Rate 18 Blood Pressure [Right Arm] 124/58 Blood Pressure [Right Arm] 126/68 O2 Sat by Pulse Oximetry 97 O2 Sat by Pulse Oximetry 96 O2 Sat by Pulse Oximetry 95 O2 Sat by Pulse Oximetry 95 Physical Exam Oriented: Normal (Also confused last night) Eyes: Normal Ear: Normal Nose: Normal Throat: Normal Respiratory: Normal Cardiovascular: Normal GI:Auscultation: Decreased GI:Palpation: Other (Diffuse tenderness with hypoactive bowel sounds) GI: Tenderness: Diffuse (Abdomen is soft with diffuse tenderness) Speech Pattern: Clear and Appropriate Laboratory and Diagnostics 09/19/25 04:37 09/19/25 04:37 Labs: 09/13/25 08:09 Sputum - Endotracheal Wash Sputum Culture - Final Klebsiella Rhinoscleromatis 09/13/25 08:09 Sputum - Endotracheal Wash - Final 09/12/25 15:46 Peritoneal Fluid Wound Gram Stain - Final 09/12/25 15:46 Peritoneal Fluid Wound Culture - Final Escherichia Coli 09/12/25 15:28 Peritoneal Fluid Wound Gram Stain - Final 09/12/25 15:28 Peritoneal Fluid Wound Culture - Final Escherichia Coli 09/12/25 11:19 Urine,Catheterized Urine Culture - Final 09/12/25 10:30 Blood Blood Culture Gram Stain - Final 09/12/25 10:30 Blood Blood Culture - Final Escherichia Coli 09/12/25 09:57 Blood Blood Culture Gram Stain - Final 09/12/25 09:57 Blood Blood Culture - Final Escherichia Coli Laboratory WBC 22.7 X10^3/uL (3.6-10.0) H 09/19/25 04:37 RBC 3.72 X10^6/uL (3.5-5.4) 09/19/25 04:37 Hgb 9.9 g/dL (12.0-16.0) L 09/19/25 04:37 Hct 29.6 % (36.0-47.0) L 09/19/25 04:37 MCV 79.7 fL (80.0-100.0) L 09/19/25 04:37 MCH 26.6 pg (27.0-34.0) L 09/19/25 04:37 MCHC 33.4 g/dL (33.0-35.0) 09/19/25 04:37 RDW 16.8 % (11.6-16.5) H 09/19/25 04:37 Plt Count 250 X10^3/uL (150.0-450.0) 09/19/25 04:37 Plt Count Comment Adequate (ADEQUATE) 09/19/25 04:37 MPV 8.6 fL (7.4-11.0) 09/19/25 04:37 Neut % (Auto) 87.9 % (42.0-75.0) H 09/19/25 04:37 Lymph % (Auto) 3.4 % (21.0-51.0) L 09/19/25 04:37 [place] % (Auto) 8.1 % (0.0-13.0) 09/19/25 04:37 Eos % (Auto) 0.3 % (0.9-2.9) L 09/19/25 04:37 Baso % (Auto) 0.3 % (0.2-1.0) 09/19/25 04:37 Neut # (Auto) 20.0 x10^3/uL (2.2-4.8) H 09/19/25 04:37 Lymph # (Auto) 0.8 X10^3/uL (1.3-2.9) L 09/19/25 04:37 [place] # (Auto) 1.8 x10^3/uL (0.3-0.8) H 09/19/25 04:37 Eos # (Auto) 0.1 x10^3/uL (0.0-0.2) 09/19/25 04:37 Baso # (Auto) 0.1 X10^3/uL (0.0-0.1) 09/19/25 04:37 Absolute Nucleated RBC 0.1 /100WBC 09/19/25 04:37 Total Counted 100 09/19/25 04:37 Neutrophils % (Manual) 90 % (39-76) H 09/19/25 04:37 Band Neutrophils % 9 % (0-10) 09/15/25 04:02 Lymphocytes % (Manual) 5 % (13-43) L 09/19/25 04:37 Monocytes % (Manual) 5 % (4-9) 09/19/25 04:37 Eosinophils % (Manual) 1 % (0-6) 09/15/25 04:02 Metamyelocytes % 2 09/15/25 04:02 Myelocytes % 2 09/15/25 04:02 Plt Morphology Comment Normal (NORMAL) 09/19/25 04:37 RBC Morphology Abnormal (NORMAL) A 09/19/25 04:37 Hypochromasia Slight A 09/19/25 04:37 Anisocytosis Slight A 09/19/25 04:37 Microcytosis Slight A 09/19/25 04:37 Target Cells Present 09/17/25 05:15 PT 12.8 SECONDS (11.8-14.3) 09/16/25 04:18 INR Target Range - 09/16/25 04:18 INR 0.95 (0.8-1.3) 09/16/25 04:18 APTT 27.1 SECONDS (22.9-36.5) 09/12/25 09:57 PTT Comment - 09/12/25 09:57 Sample Site Lrad 09/19/25 09:45 ABG pH 7.520 (7.35-7.45) H 09/19/25 09:45 ABG pCO2 35.0 mmHg (35.0-45.0) 09/19/25 09:45 ABG pO2 62.0 mmHg (80.0-100.0) L 09/19/25 09:45 ABG HCO3 28.6 mmol/L (22-26) H 09/19/25 09:45 ABG O2 Saturation 94.0 % (90-100) 09/19/25 09:45 ABG Base Excess 5.7 mmol/L (-2.0-2.0) H 09/19/25 09:45 Kevin Test Pos 09/19/25 09:45 A-a Gradient 44.0 mmHg 09/19/25 09:45 FiO2 21.0 09/19/25 09:45 Blood Gas Comments Elina well ms 09/19/25 09:45 Sodium 139 mmol/L (136-145) 09/19/25 04:37 Corrected Sodium TNP 09/19/25 04:37 Potassium 4.0 mmol/L (3.5-5.1) 09/19/25 04:37 Chloride 105 mmol/L (98-107) 09/19/25 04:37 Carbon Dioxide 29.0 mmol/L (21-32) 09/19/25 04:37 BUN 11 mg/dL (7-18) 09/19/25 04:37 Creatinine 0.47 mg/dL (0.55-1.02) L 09/19/25 04:37 Est GFR (MDRD) Af Amer > 60 (>60) 09/19/25 04:37 Est GFR (MDRD) Non-Af > 60 (>60) 09/19/25 04:37 Glucose 109 mg/dL (65-99) H 09/19/25 04:37 POC Glucose (mg/dL) 121 mg/dL (65-99) H 09/19/25 05:28 Lactic Acid 1.2 mmol/L (0.4-2.0) 09/18/25 09:10 Calcium 8.4 mg/dL (8.5-10.1) L 09/19/25 04:37 Corrected Calcium 10.1 mg/dL (8.5-10.1) 09/18/25 05:10 Phosphorus 0.6 mg/dL (2.6-4.7) L 09/18/25 05:10 Magnesium 1.9 mg/dL (2.0-2.9) L 09/19/25 04:36 Total Bilirubin 0.60 mg/dL (0.2-1.0) 09/18/25 05:10 AST 25 Units/L (15-37) 09/18/25 05:10 ALT 20 Units/L (12-78) 09/18/25 05:10 Alkaline Phosphatase 142 Units/L (46-116) H 09/18/25 05:10 Troponin I High Sens 33.8 ng/L (4.0-60.0) 09/12/25 11:55 Total Protein 5.4 g/dL (6.4-8.2) L 09/18/25 05:10 Albumin 1.8 g/dL (3.4-5.0) L 09/18/25 05:10 Globulin 3.6 g/dL (2.5-4.5) 09/18/25 05:10 Albumin/Globulin Ratio 0.5 Ratio (1.1-2.1) L 09/18/25 05:10 Prealbumin 10.5 mg/dL (18-35.7) L 09/19/25 04:37 Triglycerides 80 mg/dL (0-150) 09/18/25 05:10 Cholesterol < 50 mg/dL (0-200) 09/13/25 04:30 LDL Cholesterol, Calc 3 mg/dL (0-100) 09/13/25 04:30 HDL Cholesterol 26 mg/dL (40-60) L 09/13/25 04:30 Cholesterol/HDL Ratio 1.9 (0.0-5.0) 09/13/25 04:30 Amylase 215 Units/L (25-115) H 09/12/25 09:57 Lipase 26 Units/L (16-77) 09/12/25 09:57 Specimen Type Clean catch urine 09/18/25 09:34 Urine Color Pale yellow (YELLOW) 09/18/25 09:34 Urine Appearance Clear (CLEAR) 09/18/25 09:34 Urine pH 7.0 (5.0 - 8.0) 09/18/25 09:34 Ur Specific [place] 1.015 (1.000-1.030) 09/18/25 09:34 Urine Protein 1+ (NEGATIVE) 09/18/25 09:34 Urine Glucose (UA) Negative (NEGATIVE) 09/18/25 09:34 Urine Ketones Negative (NEGATIVE) 09/18/25 09:34 Urine Blood Negative (NEGATIVE) 09/18/25 09:34 Urine Nitrite Negative (NEGATIVE) 09/18/25 09:34 Urine Bilirubin Negative (NEGATIVE) 09/18/25 09:34 Urine Urobilinogen Normal (NORMAL) 09/18/25 09:34 Ur Leukocyte Esterase Negative (NEGATIVE) 09/18/25 09:34 Urine RBC None seen /HPF (0-3) 09/18/25 09:34 Urine WBC None seen /HPF (0-5) 09/18/25 09:34 Ur Squamous Epith Cells Negative /HPF (NEGATIVE) 09/18/25 09:34 Amorphous Sediment Trace /HPF (NEGATIVE) 09/12/25 11:19 Urine Bacteria Negative /HPF (NEGATIVE) 09/18/25 09:34 Ur Culture Indicated? No/not indicated 09/18/25 09:34 Random Vancomycin 6.0 ug/mL 09/13/25 08:23 Tissue Pathology See comment. 09/12/25 16:00 Blood Type O POSITIVE 09/12/25 14:49 Antibody Screen Negative 09/12/25 14:49 Assessment and Plan 1: Septic shock secondary to perforated sigmoid colon with fecal peritonitis. Status post laparotomy, closure of perforated sigmoid colon, diverting colostomy, thorough irrigation and drainage of the peritoneum. Patient is out of her septic shock, maintaining her blood pressure and oxygenation, good urine output with a back to normal renal function. Still in metabolic alkalosis is improving On TPN 80 cc an hour, potassium and magnesium supplement. same diet, pneumonia protocol. Out of bed and start physical therapy. Incentive spirometer, and same postoperative care. Problem Patient Problems: Patient Problems Tachycardia (Acute) R00.0 Hypotension (Acute) I95.9 Sepsis (Acute) A41.9 Perforated small intestine (Acute) K63.1
[2025-09-19] MEDS: KLONOPIN TAB 1 MG PO PRN (20:52)
--- NOTE | 2025-09-20 03:07 | RAD ---
PROCEDURE: Acute Abdomen Series. HISTORY: S/P BOWEL RESECTION; . TECHNIQUE: AP supine and upright abdomen with PA chest x-ray views. COMPARISON: 09/19/2025 chest x-ray and 09/18/2025 CTA abdomen pelvis. TECHNICAL QUALITY: Satisfactory. FINDINGS: Small bilateral pleural effusions with blunted costophrenic angles. No consolidation. No pneumoperitoneum. Dilated bowel loops in the abdomen and pelvis with air-fluid levels similar to previous CTA from 09/18/2025. No organomegaly. IMPRESSION: 1. Continued dilated large and small bowel loops with air-fluid levels throughout the abdomen and pelvis similar to previous CT scan. 2. Unchanged small bilateral pleural effusions. THIS IS AN ELECTRONICALLY VERIFIED FINAL REPORT 09/20/2025 3:04 AM - Electronically signed by Canelo Michelle MD
--- NOTE | 2025-09-20 03:08 | RAD ---
PROCEDURE: Chest X-ray 1 View. HISTORY: SOB, LATERAL CHEST DONE, PA CHEST IN THE ABD SERIES ORDER; . TECHNIQUE: Lateral view. COMPARISON: Correlated with 09/19/2025 acute abdomen series chest x-ray and 09/18/2025 chest x-ray. TECHNICAL QUALITY: Satisfactory. FINDINGS: Normal size heart. Mediastinum and hilar regions show no masses or lymphadenopathy. Normal central vascularity. Continued small bilateral pleural effusions. No consolidation or masses. No acute bony abnormality. IMPRESSION: Small bilateral pleural effusions with no other evidence of active disease. THIS IS AN ELECTRONICALLY VERIFIED FINAL REPORT 09/20/2025 3:05 AM - Electronically signed by Canelo Michelle MD
[2025-09-20 05:02] LABS: MEAN PLATELET VOLUME 8.5 fL (7.4-11.0); RED CELL DISTRIBUTION WIDTH 16.9 % (11.6-16.5)
[2025-09-20 05:12] LABS: PLATELET MORPHOLOGY COMMENT NORMAL (NORMAL)
[2025-09-20 07:58] LABS: CREATININE 0.53 mg/dL (0.55-1.02); eGFR NON BLACK RACES > 60 (>60)
--- NOTE | 2025-09-20 08:32 | DR.PROGNOT ---
HOSPITAL PROGRESS NOTE Progress Note for Day of: Progress Note Date: 09/20/25 Chief Complaint Chief Complaint: Po day 7. Patient was confused and disoriented last night, more alert oriented and answers questions normally this morning. Patient seems to be stable, tolerating diet.no nausea or vomiting . Colostomy is functioning well. Urine output is very good. White count is up to 22.3 with shift to the left, hemoglobin 9,9, platelets count is improving at 250 today PT/INR are normal. C XRay trace pleural effusion . CT , no abscess formation , mild ileus . possible early pneumonia .. Patient is alert and cooperative, Abdomen is soft with positive bowel sounds, colostomy is functioning now.no wound infection . To give her albumin, Ativan for anxiety, physical therapy to ambulate and teach colostomy care, Ensure supplement, Obtain blood gas today. Past Medical Family Social History Allergies: Allergies amoxicillin Adverse Reaction (Severe, Verified 09/12/25 09:51) ANAPHALEXIS REACTION Penicillins Adverse Reaction (Severe, Verified 09/12/25 09:51) ANAPHALEXIS REACTION codeine Adverse Reaction (Mild, Verified 09/12/25 09:51) RASH Review Of Systems Changes in ROS: see HPI Vital Signs Vital Signs: Vital Signs Temperature 97.8 F Pulse Rate [Right Brachial] 104 Pulse Rate 70 Respiratory Rate 18 Blood Pressure [Right Arm] 133/59 O2 Sat by Pulse Oximetry 100 O2 Sat by Pulse Oximetry 100 Physical Exam Oriented: Normal (was confused last night) Eyes: Normal Ear: Normal Nose: Normal Throat: Normal Respiratory: Normal Cardiovascular: Normal GI:Auscultation: Decreased GI:Palpation: Other (Diffuse tenderness with hypoactive bowel sounds) GI: Tenderness: Diffuse (Abdomen is soft with diffuse tenderness) Speech Pattern: Clear and Appropriate Laboratory and Diagnostics 09/20/25 04:40 09/20/25 04:40 Labs: 09/13/25 08:09 Sputum - Endotracheal Wash Sputum Culture - Final Klebsiella Rhinoscleromatis 09/13/25 08:09 Sputum - Endotracheal Wash - Final 09/12/25 15:46 Peritoneal Fluid Wound Gram Stain - Final 09/12/25 15:46 Peritoneal Fluid Wound Culture - Final Escherichia Coli 09/12/25 15:28 Peritoneal Fluid Wound Gram Stain - Final 09/12/25 15:28 Peritoneal Fluid Wound Culture - Final Escherichia Coli 09/12/25 11:19 Urine,Catheterized Urine Culture - Final 09/12/25 10:30 Blood Blood Culture Gram Stain - Final 09/12/25 10:30 Blood Blood Culture - Final Escherichia Coli 09/12/25 09:57 Blood Blood Culture Gram Stain - Final 09/12/25 09:57 Blood Blood Culture - Final Escherichia Coli Laboratory WBC 22.1 X10^3/uL (3.6-10.0) H 09/20/25 04:40 RBC 3.73 X10^6/uL (3.5-5.4) 09/20/25 04:40 Hgb 9.8 g/dL (12.0-16.0) L 09/20/25 04:40 Hct 29.8 % (36.0-47.0) L 09/20/25 04:40 MCV 79.9 fL (80.0-100.0) L 09/20/25 04:40 MCH 26.3 pg (27.0-34.0) L 09/20/25 04:40 MCHC 33.0 g/dL (33.0-35.0) 09/20/25 04:40 RDW 16.9 % (11.6-16.5) H 09/20/25 04:40 Plt Count 389 X10^3/uL (150.0-450.0) 09/20/25 04:40 Plt Count Comment Adequate (ADEQUATE) 09/20/25 04:40 MPV 8.5 fL (7.4-11.0) 09/20/25 04:40 Neut % (Auto) 90.3 % (42.0-75.0) H 09/20/25 04:40 Lymph % (Auto) 2.8 % (21.0-51.0) L 09/20/25 04:40 [place] % (Auto) 6.3 % (0.0-13.0) 09/20/25 04:40 Eos % (Auto) 0.4 % (0.9-2.9) L 09/20/25 04:40 Baso % (Auto) 0.2 % (0.2-1.0) 09/20/25 04:40 Neut # (Auto) 19.9 x10^3/uL (2.2-4.8) H 09/20/25 04:40 Lymph # (Auto) 0.6 X10^3/uL (1.3-2.9) L 09/20/25 04:40 [place] # (Auto) 1.4 x10^3/uL (0.3-0.8) H 09/20/25 04:40 Eos # (Auto) 0.1 x10^3/uL (0.0-0.2) 09/20/25 04:40 Baso # (Auto) 0.1 X10^3/uL (0.0-0.1) 09/20/25 04:40 Absolute Nucleated RBC 0.0 /100WBC 09/20/25 04:40 Total Counted 100 09/20/25 04:40 Neutrophils % (Manual) 89 % (39-76) H 09/20/25 04:40 Band Neutrophils % 9 % (0-10) 09/15/25 04:02 Lymphocytes % (Manual) 5 % (13-43) L 09/20/25 04:40 Monocytes % (Manual) 5 % (4-9) 09/20/25 04:40 Eosinophils % (Manual) 1 % (0-6) 09/20/25 04:40 Metamyelocytes % 2 09/15/25 04:02 Myelocytes % 2 09/15/25 04:02 Plt Morphology Comment Normal (NORMAL) 09/20/25 04:40 RBC Morphology Abnormal (NORMAL) A 09/20/25 04:40 Hypochromasia Slight A 09/20/25 04:40 Anisocytosis Slight A 09/20/25 04:40 Microcytosis Slight A 09/20/25 04:40 Target Cells Slight A 09/20/25 04:40 PT 12.8 SECONDS (11.8-14.3) 09/16/25 04:18 INR Target Range - 09/16/25 04:18 INR 0.95 (0.8-1.3) 09/16/25 04:18 APTT 27.1 SECONDS (22.9-36.5) 09/12/25 09:57 PTT Comment - 09/12/25 09:57 Sample Site Lrad 09/19/25 09:45 ABG pH 7.520 (7.35-7.45) H 09/19/25 09:45 ABG pCO2 35.0 mmHg (35.0-45.0) 09/19/25 09:45 ABG pO2 62.0 mmHg (80.0-100.0) L 09/19/25 09:45 ABG HCO3 28.6 mmol/L (22-26) H 09/19/25 09:45 ABG O2 Saturation 94.0 % (90-100) 09/19/25 09:45 ABG Base Excess 5.7 mmol/L (-2.0-2.0) H 09/19/25 09:45 Kevin Test Pos 09/19/25 09:45 A-a Gradient 44.0 mmHg 09/19/25 09:45 FiO2 21.0 09/19/25 09:45 Blood Gas Comments Elina well ms 09/19/25 09:45 Sodium 141 mmol/L (136-145) 09/20/25 04:40 Corrected Sodium TNP 09/20/25 04:40 Potassium 4.1 mmol/L (3.5-5.1) 09/20/25 04:40 Chloride 105 mmol/L (98-107) 09/20/25 04:40 Carbon Dioxide 28.6 mmol/L (21-32) 09/20/25 04:40 BUN 12 mg/dL (7-18) 09/20/25 04:40 Creatinine 0.53 mg/dL (0.55-1.02) L 09/20/25 04:40 Est GFR (MDRD) Af Amer > 60 (>60) 09/20/25 04:40 Est GFR (MDRD) Non-Af > 60 (>60) 09/20/25 04:40 Glucose 99 mg/dL (65-99) 09/20/25 04:40 POC Glucose (mg/dL) 89 mg/dL (65-99) 09/20/25 02:22 Lactic Acid 1.2 mmol/L (0.4-2.0) 09/18/25 09:10 Calcium 8.7 mg/dL (8.5-10.1) 09/20/25 04:40 Corrected Calcium 10.1 mg/dL (8.5-10.1) 09/18/25 05:10 Phosphorus 0.6 mg/dL (2.6-4.7) L 09/18/25 05:10 Magnesium 1.9 mg/dL (2.0-2.9) L 09/19/25 04:36 Total Bilirubin 0.60 mg/dL (0.2-1.0) 09/18/25 05:10 AST 25 Units/L (15-37) 09/18/25 05:10 ALT 20 Units/L (12-78) 09/18/25 05:10 Alkaline Phosphatase 142 Units/L (46-116) H 09/18/25 05:10 Troponin I High Sens 33.8 ng/L (4.0-60.0) 09/12/25 11:55 Total Protein 5.4 g/dL (6.4-8.2) L 09/18/25 05:10 Albumin 1.8 g/dL (3.4-5.0) L 09/18/25 05:10 Globulin 3.6 g/dL (2.5-4.5) 09/18/25 05:10 Albumin/Globulin Ratio 0.5 Ratio (1.1-2.1) L 09/18/25 05:10 Prealbumin 10.5 mg/dL (18-35.7) L 09/19/25 04:37 Triglycerides 80 mg/dL (0-150) 09/18/25 05:10 Cholesterol < 50 mg/dL (0-200) 09/13/25 04:30 LDL Cholesterol, Calc 3 mg/dL (0-100) 09/13/25 04:30 HDL Cholesterol 26 mg/dL (40-60) L 09/13/25 04:30 Cholesterol/HDL Ratio 1.9 (0.0-5.0) 09/13/25 04:30 Amylase 215 Units/L (25-115) H 09/12/25 09:57 Lipase 26 Units/L (16-77) 09/12/25 09:57 Specimen Type Clean catch urine 09/18/25 09:34 Urine Color Pale yellow (YELLOW) 09/18/25 09:34 Urine Appearance Clear (CLEAR) 09/18/25 09:34 Urine pH 7.0 (5.0 - 8.0) 09/18/25 09:34 Ur Specific [place] 1.015 (1.000-1.030) 09/18/25 09:34 Urine Protein 1+ (NEGATIVE) 09/18/25 09:34 Urine Glucose (UA) Negative (NEGATIVE) 09/18/25 09:34 Urine Ketones Negative (NEGATIVE) 09/18/25 09:34 Urine Blood Negative (NEGATIVE) 09/18/25 09:34 Urine Nitrite Negative (NEGATIVE) 09/18/25 09:34 Urine Bilirubin Negative (NEGATIVE) 09/18/25 09:34 Urine Urobilinogen Normal (NORMAL) 09/18/25 09:34 Ur Leukocyte Esterase Negative (NEGATIVE) 09/18/25 09:34 Urine RBC None seen /HPF (0-3) 09/18/25 09:34 Urine WBC None seen /HPF (0-5) 09/18/25 09:34 Ur Squamous Epith Cells Negative /HPF (NEGATIVE) 09/18/25 09:34 Amorphous Sediment Trace /HPF (NEGATIVE) 09/12/25 11:19 Urine Bacteria Negative /HPF (NEGATIVE) 09/18/25 09:34 Ur Culture Indicated? No/not indicated 09/18/25 09:34 Random Vancomycin 6.0 ug/mL 09/13/25 08:23 Tissue Pathology See comment. 09/12/25 16:00 Blood Type O POSITIVE 09/12/25 14:49 Antibody Screen Negative 09/12/25 14:49 Assessment and Plan 1: Septic shock secondary to perforated sigmoid colon with fecal peritonitis. Status post laparotomy, closure of perforated sigmoid colon, diverting colostomy, thorough irrigation and drainage of the peritoneum. Patient is out of her septic shock, maintaining her blood pressure and oxygenation, good urine output with a back to normal renal function. Still in metabolic alkalosis , to repeat blood gas today. On TPN 80 cc an hour, potassium and magnesium supplement. same diet, Ensure supplement. pneumonia protocol. Out of bed and start physical therapy. Incentive spirometer, and same postoperative care. Problem Patient Problems: Patient Problems Tachycardia (Acute) R00.0 Hypotension (Acute) I95.9 Sepsis (Acute) A41.9 Perforated small intestine (Acute) K63.1
[2025-09-20] MEDS: ALBUMIN HUMAN 25%- 100 ML 200 ML IV ONE (08:52)
[2025-09-20] MEDS: K-DUR TAB 20 MEQ PO ONE (10:40)
[2025-09-20] MEDS: LASIX IVP ONE (10:40)
[2025-09-20] MEDS ORDERED: D50W ABBOJECT SYR ONE (11:13)
[2025-09-20] MEDS: DRUG FILTER EXTENSION SET ONE (12:13)
[2025-09-20] MEDS: GLUTOSE 15 GEL ORAL PO ONE (12:14)
[2025-09-20] MEDS: D50W ABBOJECT SYR IV ONE (12:14)
[2025-09-20 13:58] LABS: BLOOD/HEMOGLOBIN,URINE NEGATIVE (NEGATIVE); LEUKOCYTE ESTERASE ,URINE NEGATIVE (NEGATIVE); NITRITES,URINE NEGATIVE (NEGATIVE)
[2025-09-20 14:14] LABS: APPEARANCE,URINE CLEAR (CLEAR); SQUAMOUS EPITHELIAL CELL,UR RARE /HPF (NEGATIVE)
[2025-09-20 18:30] LABS: COR CA(FOR HYPOALB) 10.1 mg/dL (8.5-10.1)
[2025-09-21 05:51] LABS: MEAN PLATELET VOLUME 8.4 fL (7.4-11.0)
[2025-09-21 05:57] LABS: RED CELL DISTRIBUTION WIDTH 16.7 % (11.6-16.5)
[2025-09-21 06:03] LABS: COR CA(FOR HYPOALB) 9.9 mg/dL (8.5-10.1); COR NA(FOR HYPERGLY) 138 mmol/L (136-145); CREATININE 0.50 mg/dL (0.55-1.02); eGFR NON BLACK RACES > 60 (>60)
[2025-09-21 06:25] LABS: PLATELET MORPHOLOGY COMMENT NORMAL (NORMAL)
--- NOTE | 2025-09-21 06:48 | RAD ---
EXAM: Two-view chest HISTORY: Pneumonia, shortness of breath COMPARISON: 09/19/2025 FINDINGS: There is a right IJ line with its tip in the expected position of the superior vena cava. Heart size is normal. Kari are normal. Lungs are mildly hypoinflated but free of acute infiltrates. Blunting of the left costophrenic angle suggest small left pleural effusion. Bony thorax is unremarkable. IMPRESSION: Lungs hypoinflated but free of acute infiltrates Blunting of the left costophrenic angle suggests a small left pleural effusion THIS IS AN ELECTRONICALLY VERIFIED FINAL REPORT 09/21/2025 6:44 AM - Electronically signed by Frank Ngo MD
[2025-09-21] MEDS: LOVENOX INJ 40 MG SYR SC SCH (08:59)
[2025-09-21] MEDS: LASIX IVP ONE (08:59)
--- NOTE | 2025-09-21 09:08 | DR.PROGNOT ---
HOSPITAL PROGRESS NOTE Progress Note for Day of: Progress Note Date: 09/21/25 Chief Complaint Chief Complaint: Po day 7. Patient was confused and disoriented last night and this morning, poor appetite. Patient seems to be stable, tolerating diet.no nausea or vomiting . Colostomy is functioning well. Urine output is very good. White count is up to 21.3 with shift to the left, hemoglobin 8.7 , platelets count is improving at 496. today PT/INR are normal. C XRay trace pleural effusion . CT , no abscess formation , mild ileus . possible early pneumonia .. Patient is alert and cooperative, Abdomen is soft with positive bowel sounds, colostomy is functioning now.no wound infection . 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 Past Medical Family Social History Allergies: Allergies amoxicillin Adverse Reaction (Severe, Verified 09/12/25 09:51) ANAPHALEXIS REACTION Penicillins Adverse Reaction (Severe, Verified 09/12/25 09:51) ANAPHALEXIS REACTION codeine Adverse Reaction (Mild, Verified 09/12/25 09:51) RASH Review Of Systems Changes in ROS: see HPI Vital Signs Vital Signs: Vital Signs Temperature 97.9 F Temperature 98.4 F Pulse Rate [Right Brachial] 112 Pulse Rate [Right Brachial] 111 Respiratory Rate 18 Respiratory Rate 16 Respiratory Rate 17 Respiratory Rate 16 Blood Pressure [Right Arm] 117/59 Blood Pressure [Right Arm] 130/63 O2 Sat by Pulse Oximetry 97 O2 Sat by Pulse Oximetry 94 Physical Exam Oriented: Normal (was confused last night) Eyes: Normal Ear: Normal Nose: Normal Throat: Normal Respiratory: Normal Cardiovascular: Normal GI:Auscultation: Decreased GI:Palpation: Other (Diffuse tenderness with hypoactive bowel sounds) GI: Tenderness: Diffuse (Abdomen is soft with diffuse tenderness) Speech Pattern: Clear and Appropriate Laboratory and Diagnostics 09/21/25 05:11 09/21/25 05:11 Labs: 09/20/25 13:45 Urine,Clean Catch Urine Culture - Preliminary 09/18/25 09:17 Blood Blood Culture - Preliminary 09/18/25 09:10 Blood Blood Culture - Preliminary 09/13/25 08:09 Sputum - Endotracheal Wash Sputum Culture - Final Klebsiella Rhinoscleromatis 09/13/25 08:09 Sputum - Endotracheal Wash - Final 09/12/25 15:46 Peritoneal Fluid Wound Gram Stain - Final 09/12/25 15:46 Peritoneal Fluid Wound Culture - Final Escherichia Coli 09/12/25 15:28 Peritoneal Fluid Wound Gram Stain - Final 09/12/25 15:28 Peritoneal Fluid Wound Culture - Final Escherichia Coli 09/12/25 11:19 Urine,Catheterized Urine Culture - Final 09/12/25 10:30 Blood Blood Culture Gram Stain - Final 09/12/25 10:30 Blood Blood Culture - Final Escherichia Coli 09/12/25 09:57 Blood Blood Culture Gram Stain - Final 09/12/25 09:57 Blood Blood Culture - Final Escherichia Coli Laboratory WBC 21.2 X10^3/uL (3.6-10.0) H 09/21/25 05:11 RBC 3.27 X10^6/uL (3.5-5.4) L 09/21/25 05:11 Hgb 8.7 g/dL (12.0-16.0) L 09/21/25 05:11 Hct 25.9 % (36.0-47.0) L 09/21/25 05:11 MCV 79.1 fL (80.0-100.0) L 09/21/25 05:11 MCH 26.5 pg (27.0-34.0) L 09/21/25 05:11 MCHC 33.5 g/dL (33.0-35.0) 09/21/25 05:11 RDW 16.7 % (11.6-16.5) H 09/21/25 05:11 Plt Count 465 X10^3/uL (150.0-450.0) H 09/21/25 05:11 Plt Count Comment Increased (ADEQUATE) A 09/21/25 05:11 MPV 8.4 fL (7.4-11.0) 09/21/25 05:11 Neut % (Auto) 89.9 % (42.0-75.0) H 09/21/25 05:11 Lymph % (Auto) 3.2 % (21.0-51.0) L 09/21/25 05:11 [place] % (Auto) 6.4 % (0.0-13.0) 09/21/25 05:11 Eos % (Auto) 0.2 % (0.9-2.9) L 09/21/25 05:11 Baso % (Auto) 0.3 % (0.2-1.0) 09/21/25 05:11 Neut # (Auto) 19.0 x10^3/uL (2.2-4.8) H 09/21/25 05:11 Lymph # (Auto) 0.7 X10^3/uL (1.3-2.9) L 09/21/25 05:11 [place] # (Auto) 1.4 x10^3/uL (0.3-0.8) H 09/21/25 05:11 Eos # (Auto) 0.0 x10^3/uL (0.0-0.2) 09/21/25 05:11 Baso # (Auto) 0.1 X10^3/uL (0.0-0.1) 09/21/25 05:11 Absolute Nucleated RBC 0.1 /100WBC 09/21/25 05:11 Total Counted 100 09/21/25 05:11 Neutrophils % (Manual) 92 % (39-76) H 09/21/25 05:11 Band Neutrophils % 9 % (0-10) 09/15/25 04:02 Lymphocytes % (Manual) 6 % (13-43) L 09/21/25 05:11 Monocytes % (Manual) 2 % (4-9) L 09/21/25 05:11 Eosinophils % (Manual) 1 % (0-6) 09/20/25 04:40 Metamyelocytes % 2 09/15/25 04:02 Myelocytes % 2 09/15/25 04:02 Plt Morphology Comment Normal (NORMAL) 09/21/25 05:11 RBC Morphology Abnormal (NORMAL) A 09/21/25 05:11 Hypochromasia Slight A 09/21/25 05:11 Anisocytosis Slight A 09/20/25 04:40 Microcytosis Slight A 09/21/25 05:11 Target Cells 1+ A 09/21/25 05:11 ESR 109 MM/HOUR (0-20) H 09/20/25 04:40 PT 12.8 SECONDS (11.8-14.3) 09/16/25 04:18 INR Target Range - 09/16/25 04:18 INR 0.95 (0.8-1.3) 09/16/25 04:18 APTT 27.1 SECONDS (22.9-36.5) 09/12/25 09:57 PTT Comment - 09/12/25 09:57 Sample Site [place] 09/19/25 09:45 ABG pH 7.520 (7.35-7.45) H 09/19/25 09:45 ABG pCO2 35.0 mmHg (35.0-45.0) 09/19/25 09:45 ABG pO2 62.0 mmHg (80.0-100.0) L 09/19/25 09:45 ABG HCO3 28.6 mmol/L (22-26) H 09/19/25 09:45 ABG O2 Saturation 94.0 % (90-100) 09/19/25 09:45 ABG Base Excess 5.7 mmol/L (-2.0-2.0) H 09/19/25 09:45 Kevin Test Pos 09/19/25 09:45 A-a Gradient 44.0 mmHg 09/19/25 09:45 FiO2 21.0 09/19/25 09:45 Blood Gas Comments Elina well ms 09/19/25 09:45 Sodium 138 mmol/L (136-145) 09/21/25 05:11 Corrected Sodium 138 mmol/L (136-145) 09/21/25 05:11 Potassium 4.2 mmol/L (3.5-5.1) 09/21/25 05:11 Chloride 105 mmol/L (98-107) 09/21/25 05:11 Carbon Dioxide 25.8 mmol/L (21-32) 09/21/25 05:11 BUN 12 mg/dL (7-18) 09/21/25 05:11 Creatinine 0.50 mg/dL (0.55-1.02) L 09/21/25 05:11 Est GFR (MDRD) Af Amer > 60 (>60) 09/21/25 05:11 Est GFR (MDRD) Non-Af > 60 (>60) 09/21/25 05:11 Glucose 112 mg/dL (65-99) H 09/21/25 05:11 POC Glucose (mg/dL) 112 mg/dL (65-99) H 09/21/25 02:25 Lactic Acid 1.2 mmol/L (0.4-2.0) 09/18/25 09:10 Calcium 8.7 mg/dL (8.5-10.1) 09/21/25 05:11 Corrected Calcium 9.9 mg/dL (8.5-10.1) 09/21/25 05:11 Phosphorus 0.6 mg/dL (2.6-4.7) L 09/18/25 05:10 Magnesium 1.9 mg/dL (2.0-2.9) L 09/19/25 04:36 Total Bilirubin 0.50 mg/dL (0.2-1.0) 09/21/25 05:11 AST 54 Units/L (15-37) H 09/21/25 05:11 ALT 49 Units/L (12-78) 09/21/25 05:11 Alkaline Phosphatase 226 Units/L (46-116) H 09/21/25 05:11 Troponin I High Sens 33.8 ng/L (4.0-60.0) 09/12/25 11:55 C-Reactive Protein 146.50 mg/L (0-3.0) H 09/20/25 04:40 B-Natriuretic Peptide 52.0 pg/mL (0-79) 09/20/25 04:40 Total Protein 6.3 g/dL (6.4-8.2) L 09/21/25 05:11 Albumin 2.5 g/dL (3.4-5.0) L 09/21/25 05:11 Globulin 3.8 g/dL (2.5-4.5) 09/21/25 05:11 Albumin/Globulin Ratio 0.7 Ratio (1.1-2.1) L 09/21/25 05:11 Prealbumin 10.5 mg/dL (18-35.7) L 09/19/25 04:37 Triglycerides 80 mg/dL (0-150) 09/18/25 05:10 Cholesterol < 50 mg/dL (0-200) 09/13/25 04:30 LDL Cholesterol, Calc 3 mg/dL (0-100) 09/13/25 04:30 HDL Cholesterol 26 mg/dL (40-60) L 09/13/25 04:30 Cholesterol/HDL Ratio 1.9 (0.0-5.0) 09/13/25 04:30 Amylase 215 Units/L (25-115) H 09/12/25 09:57 Lipase 26 Units/L (16-77) 09/12/25 09:57 Specimen Type Clean catch urine 09/20/25 13:45 Urine Color Yellow (YELLOW) 09/20/25 13:45 Urine Appearance Clear (CLEAR) 09/20/25 13:45 Urine pH 8.0 (5.0 - 8.0) 09/20/25 13:45 Ur Specific [place] 1.010 (1.000-1.030) 09/20/25 13:45 Urine Protein 1+ (NEGATIVE) 09/20/25 13:45 Urine Glucose (UA) Negative (NEGATIVE) 09/20/25 13:45 Urine Ketones Negative (NEGATIVE) 09/20/25 13:45 Urine Blood Negative (NEGATIVE) 09/20/25 13:45 Urine Nitrite Negative (NEGATIVE) 09/20/25 13:45 Urine Bilirubin Negative (NEGATIVE) 09/20/25 13:45 Urine Urobilinogen Normal (NORMAL) 09/20/25 13:45 Ur Leukocyte Esterase Negative (NEGATIVE) 09/20/25 13:45 Urine RBC None seen /HPF (0-3) 09/20/25 13:45 Urine WBC None seen /HPF (0-5) 09/20/25 13:45 Ur Squamous Epith Cells Rare /HPF (NEGATIVE) 09/20/25 13:45 Amorphous Sediment Trace /HPF (NEGATIVE) 09/12/25 11:19 Urine Bacteria Negative /HPF (NEGATIVE) 09/20/25 13:45 Ur Culture Indicated? Yes/culture set up 09/20/25 13:45 Random Vancomycin 6.0 ug/mL 09/13/25 08:23 Tissue Pathology See comment. 09/12/25 16:00 Blood Type O POSITIVE 09/12/25 14:49 Antibody Screen Negative 09/12/25 14:49 Assessment and Plan 1: Septic shock secondary to perforated sigmoid colon with fecal peritonitis. Status post laparotomy, closure of perforated sigmoid colon, diverting colostomy, thorough irrigation and drainage of the peritoneum. Patient is out of her septic shock, maintaining her blood pressure and oxygenation, good urine output with a back to normal renal function. Still in metabolic alkalosis , to repeat blood gas today. On TPN 80 cc an hour, potassium and magnesium supplement. same diet, Ensure supplement. pneumonia protocol. DVT prophylaxis. Out of bed and start physical therapy. Incentive spirometer, and same postoperative care. Problem Patient Problems: Patient Problems Tachycardia (Acute) R00.0 Hypotension (Acute) I95.9 Sepsis (Acute) A41.9 Perforated small intestine (Acute) K63.1
[2025-09-21 09:47] LABS: ABG BASE EXCESS 2.8 mmol/L (-2.0-2.0); ABG HCO3 25.9 mmol/L (22-26); ABG OXYGEN SATURATION 92.0 % (90-100); ABG PCO2 34.0 mmHg (35.0-45.0); ABG PH 7.490 (7.35-7.45); ABG PO2 59.0 mmHg (80.0-100.0)
[2025-09-21 10:27] LABS: PHOSPHORUS 1.1 mg/dL (2.6-4.7)
--- NOTE | 2025-09-21 14:30 | RAD ---
EXAM: CHEST, PA/LAT ADULT HISTORY: shortness of breath; COMPARISON: No relevant prior studies were available for comparison at the time of interpretation. TECHNIQUE: CHEST, PA/LAT ADULT FINDINGS: Chest: Lines and tubes: Right IJ approach central catheter is seen with its tip in satisfactory position Mediastinum: Cardiac and mediastinal shadow is within normal limits for size and contour. Pulmonary vessels: No pulmonary vascular congestion. Lung love: No suspicious airspace opacity. Pleura: No effusion. No pneumothorax. Bones and soft tissues: No acute osseous or soft tissue abnormality. IMPRESSION: 1. No acute cardiopulmonary abnormality THIS IS AN ELECTRONICALLY VERIFIED FINAL REPORT 09/21/2025 2:27 PM - Electronically signed by Vince Horner MD
--- NOTE | 2025-09-21 14:54 | RAD ---
EXAM: KUB HISTORY: abd distention; COMPARISON: 09/12/2025 FINDINGS: Midline surgical vira. No evidence of pneumoperitoneum. No pathologic soft tissue calcification. No acute osseous abnormality. IMPRESSION: No acute abdominal process. THIS IS AN ELECTRONICALLY VERIFIED FINAL REPORT 09/21/2025 2:50 PM - Electronically signed by Frank Ngo MD
[2025-09-22 06:03] LABS: MEAN PLATELET VOLUME 8.3 fL (7.4-11.0); RED CELL DISTRIBUTION WIDTH 17.0 % (11.6-16.5)
[2025-09-22 06:19] LABS: COR CA(FOR HYPOALB) 10.0 mg/dL (8.5-10.1); CREATININE 0.64 mg/dL (0.55-1.02); eGFR NON BLACK RACES > 60 (>60)
[2025-09-22 06:21] LABS: BAND NEUTROPHILS % 1 % (0-10); PLATELET MORPHOLOGY COMMENT NORMAL (NORMAL)
[2025-09-22] MEDS: DRUG FILTER EXTENSION SET ONE (06:55)
--- NOTE | 2025-09-22 13:47 | CT ---
EXAM: CTA chest with contrast for pulmonary embolus HISTORY: Shortness of breath TECHNIQUE: Axial postcontrast images with coronal and sagittal reformats. Three-dimensional maximum intensity projection images were obtained and evaluated. Dose reduction techniques were used with MA/kv adjusted for body size. COMPARISON: None FINDINGS: There is no evidence for acute pulmonary thromboembolic disease examination of the mediastinum demonstrated no evidence for mediastinal masses, abnormal mediastinal or abnormal hilar adenopathy or significant aortic abnormality. Bilateral small pleural effusions are present. No chest wall or axillary abnormality is identified. Those portions of the upper abdominal organs visualized no appeared within normal limits to the limitations of early arterial injection timing with the exception a single bubble of pneumoperitoneum visualized on axial series 4, image 132 and sagittal series 8 image 135. This is most likely related to the patient's recent abdominal surgery. Examination of the lung love demonstrated the right lung and left upper lung love to be clear. There is a focus of consolidation and atelectasis posteriorly and inferiorly in the left lower lobe likely representing atelectatic pneumonia. IMPRESSION: No evidence for acute pulmonary thromboembolic disease Area of consolidation and some volume loss posteriorly and inferiorly in the left lower lobe likely atelectatic pneumonia Tiny single bubble of pneumoperitoneum visualized most likely related to the patient's recent abdominal surgery. Bilateral small pleural effusions THIS IS AN ELECTRONICALLY VERIFIED FINAL REPORT 09/22/2025 1:43 PM - Electronically signed by Frank Ngo MD
[2025-09-22 17:58] LABS: CRYPTOSPORIDIUM PARVUM ANTIGEN NEGATIVE (NEGATIVE); GIARDIA LAMBLIA ANTIGEN NEGATIVE (NEGATIVE)
[2025-09-23 06:02] LABS: MEAN PLATELET VOLUME 7.9 fL (7.4-11.0); RED CELL DISTRIBUTION WIDTH 16.5 % (11.6-16.5)
[2025-09-23 06:14] LABS: COR CA(FOR HYPOALB) 10.1 mg/dL (8.5-10.1); CREATININE 0.62 mg/dL (0.55-1.02); eGFR NON BLACK RACES > 60 (>60)
[2025-09-23 06:41] LABS: BAND NEUTROPHILS % 1 % (0-10); PLATELET MORPHOLOGY COMMENT NORMAL (NORMAL)
[2025-09-23] MEDS: LASIX IVP ONE (09:53)
[2025-09-23] MEDS: K-DUR TAB 20 MEQ PO SCH (09:53)
[2025-09-23] MEDS: DIFLUCAN PO SCH (09:54)
[2025-09-23] MEDS: VISBIOME PROBIOTIC CAP 112.5 B or equivalent PO SCH (09:54)
--- NOTE | 2025-09-23 12:43 | DR.PROGNOT ---
HOSPITAL PROGRESS NOTE Progress Note for Day of: Progress Note Date: 09/23/25 Chief Complaint Chief Complaint: Patient is feeling better today, no significant shortness of breath, complaining of some incisional pain, no nausea or vomiting and her appetite seems to be improving. Chest CTA was negative for pulmonary embolism, No significant drainage from the lower incision but it still erythematous, awaiting final culture report. Colostomy is functioning well. WBC 24,000, hemoglobin 9.8, platelet 779, electrolytes BUN/creatinine are normal, alkaline phosphatase 209 with normal bilirubin. Patient is afebrile, the abdomen is soft with good bowel sounds. Past Medical Family Social History Allergies: Allergies amoxicillin Adverse Reaction (Severe, Verified 09/12/25 09:51) ANAPHALEXIS REACTION Penicillins Adverse Reaction (Severe, Verified 09/12/25 09:51) ANAPHALEXIS REACTION codeine Adverse Reaction (Mild, Verified 09/12/25 09:51) RASH Review Of Systems Changes in ROS: see HPI Vital Signs Vital Signs: Vital Signs Temperature 99.3 F Temperature 98.7 F Pulse Rate [Right Brachial] 111 Pulse Rate [Right Brachial] 109 Pulse Rate 101 Pulse Rate 104 Respiratory Rate 19 Respiratory Rate 20 Respiratory Rate 19 Blood Pressure [Right Arm] 117/66 Blood Pressure [Left Arm] 119/57 O2 Sat by Pulse Oximetry 97 O2 Sat by Pulse Oximetry 98 O2 Sat by Pulse Oximetry 96 O2 Sat by Pulse Oximetry 97 Physical Exam Oriented: Normal (was confused last night) Eyes: Normal Ear: Normal Nose: Normal Throat: Normal Respiratory: Normal Cardiovascular: Normal GI:Auscultation: Decreased GI:Palpation: Other (Diffuse tenderness with hypoactive bowel sounds) GI: Tenderness: Diffuse (Abdomen is soft with diffuse tenderness) Speech Pattern: Clear and Appropriate Laboratory and Diagnostics 09/23/25 05:07 09/23/25 05:07 Labs: 09/22/25 16:45 Stool Stool Culture - Preliminary 09/22/25 16:45 Stool - Final 09/18/25 09:17 Blood Blood Culture - Final 09/18/25 09:10 Blood Blood Culture - Final 09/22/25 10:22 Abdomen Wound Gram Stain - Final 09/22/25 10:22 Abdomen Wound Culture - Preliminary 09/20/25 13:45 Urine,Clean Catch Urine Culture - Final 09/13/25 08:09 Sputum - Endotracheal Wash Sputum Culture - Final Klebsiella Rhinoscleromatis 09/13/25 08:09 Sputum - Endotracheal Wash - Final 09/12/25 15:46 Peritoneal Fluid Wound Gram Stain - Final 09/12/25 15:46 Peritoneal Fluid Wound Culture - Final Escherichia Coli 09/12/25 15:28 Peritoneal Fluid Wound Gram Stain - Final 09/12/25 15:28 Peritoneal Fluid Wound Culture - Final Escherichia Coli 09/12/25 11:19 Urine,Catheterized Urine Culture - Final 09/12/25 10:30 Blood Blood Culture Gram Stain - Final 09/12/25 10:30 Blood Blood Culture - Final Escherichia Coli 09/12/25 09:57 Blood Blood Culture Gram Stain - Final 09/12/25 09:57 Blood Blood Culture - Final Escherichia Coli Laboratory WBC 24.0 X10^3/uL (3.6-10.0) H 09/23/25 05:07 RBC 3.74 X10^6/uL (3.5-5.4) 09/23/25 05:07 Hgb 9.8 g/dL (12.0-16.0) L 09/23/25 05:07 Hct 29.5 % (36.0-47.0) L 09/23/25 05:07 MCV 79.0 fL (80.0-100.0) L 09/23/25 05:07 MCH 26.1 pg (27.0-34.0) L 09/23/25 05:07 MCHC 33.1 g/dL (33.0-35.0) 09/23/25 05:07 RDW 16.5 % (11.6-16.5) 09/23/25 05:07 Plt Count 779 X10^3/uL (150.0-450.0) H 09/23/25 05:07 Plt Count Comment Increased (ADEQUATE) A 09/23/25 05:07 MPV 7.9 fL (7.4-11.0) 09/23/25 05:07 Neut % (Auto) 87.7 % (42.0-75.0) H 09/23/25 05:07 Lymph % (Auto) 6.1 % (21.0-51.0) L 09/23/25 05:07 [place] % (Auto) 5.5 % (0.0-13.0) 09/23/25 05:07 Eos % (Auto) 0.3 % (0.9-2.9) L 09/23/25 05:07 Baso % (Auto) 0.4 % (0.2-1.0) 09/23/25 05:07 Neut # (Auto) 21.0 x10^3/uL (2.2-4.8) H 09/23/25 05:07 Lymph # (Auto) 1.5 X10^3/uL (1.3-2.9) 09/23/25 05:07 [place] # (Auto) 1.3 x10^3/uL (0.3-0.8) H 09/23/25 05:07 Eos # (Auto) 0.1 x10^3/uL (0.0-0.2) 09/23/25 05:07 Baso # (Auto) 0.1 X10^3/uL (0.0-0.1) 09/23/25 05:07 Absolute Nucleated RBC 0.0 /100WBC 09/23/25 05:07 Total Counted 100 09/23/25 05:07 Neutrophils % (Manual) 90 % (39-76) H 09/23/25 05:07 Band Neutrophils % 1 % (0-10) 09/23/25 05:07 Lymphocytes % (Manual) 3 % (13-43) L 09/23/25 05:07 Monocytes % (Manual) 5 % (4-9) 09/23/25 05:07 Eosinophils % (Manual) 1 % (0-6) 09/23/25 05:07 Metamyelocytes % 2 09/15/25 04:02 Myelocytes % 2 09/15/25 04:02 Plt Morphology Comment Normal (NORMAL) 09/23/25 05:07 RBC Morphology Abnormal (NORMAL) A 09/23/25 05:07 Hypochromasia Slight A 09/21/25 05:11 Anisocytosis Slight A 09/22/25 05:14 Microcytosis Slight A 09/23/25 05:07 Target Cells Slight A 09/23/25 05:07 ESR 107 MM/HOUR (0-20) H 09/23/25 05:07 PT 12.8 SECONDS (11.8-14.3) 09/16/25 04:18 INR Target Range - 09/16/25 04:18 INR 0.95 (0.8-1.3) 09/16/25 04:18 APTT 27.1 SECONDS (22.9-36.5) 09/12/25 09:57 PTT Comment - 09/12/25 09:57 Sample Site Rbra 09/21/25 09:10 ABG pH 7.490 (7.35-7.45) H 09/21/25 09:10 ABG pCO2 34.0 mmHg (35.0-45.0) L 09/21/25 09:10 ABG pO2 59.0 mmHg (80.0-100.0) L 09/21/25 09:10 ABG HCO3 25.9 mmol/L (22-26) 09/21/25 09:10 ABG O2 Saturation 92.0 % (90-100) 09/21/25 09:10 ABG Base Excess 2.8 mmol/L (-2.0-2.0) H 09/21/25 09:10 Kevin Test N/a 09/21/25 09:10 A-a Gradient 48.0 mmHg 09/21/25 09:10 FiO2 21.0 09/21/25 09:10 Blood Gas Comments Pt adolph well elj 09/21/25 09:10 Sodium 137 mmol/L (136-145) 09/23/25 05:07 Corrected Sodium TNP 09/23/25 05:07 Potassium 3.9 mmol/L (3.5-5.1) 09/23/25 05:07 Chloride 102 mmol/L (98-107) 09/23/25 05:07 Carbon Dioxide 28.4 mmol/L (21-32) 09/23/25 05:07 BUN 11 mg/dL (7-18) 09/23/25 05:07 Creatinine 0.62 mg/dL (0.55-1.02) 09/23/25 05:07 Est GFR (MDRD) Af Amer > 60 (>60) 09/23/25 05:07 Est GFR (MDRD) Non-Af > 60 (>60) 09/23/25 05:07 Glucose 101 mg/dL (65-99) H 09/23/25 05:07 POC Glucose (mg/dL) 105 mg/dL (65-99) H 09/23/25 11:59 Lactic Acid 1.2 mmol/L (0.4-2.0) 09/18/25 09:10 Calcium 8.7 mg/dL (8.5-10.1) 09/23/25 05:07 Corrected Calcium 10.1 mg/dL (8.5-10.1) 09/23/25 05:07 Phosphorus 1.1 mg/dL (2.6-4.7) L 09/21/25 05:11 Magnesium 2.0 mg/dL (2.0-2.9) 09/21/25 05:11 Total Bilirubin 0.50 mg/dL (0.2-1.0) 09/23/25 05:07 AST 50 Units/L (15-37) H 09/23/25 05:07 ALT 61 Units/L (12-78) 09/23/25 05:07 Alkaline Phosphatase 209 Units/L (46-116) H 09/23/25 05:07 Troponin I High Sens 33.8 ng/L (4.0-60.0) 09/12/25 11:55 C-Reactive Protein 146.50 mg/L (0-3.0) H 09/20/25 04:40 B-Natriuretic Peptide 52.0 pg/mL (0-79) 09/20/25 04:40 Total Protein 6.7 g/dL (6.4-8.2) 09/23/25 05:07 Albumin 2.3 g/dL (3.4-5.0) L 09/23/25 05:07 Globulin 4.4 g/dL (2.5-4.5) 09/23/25 05:07 Albumin/Globulin Ratio 0.5 Ratio (1.1-2.1) L 09/23/25 05:07 Prealbumin 10.5 mg/dL (18-35.7) L 09/19/25 04:37 Triglycerides 102 mg/dL (0-150) 09/21/25 05:11 Cholesterol < 50 mg/dL (0-200) 09/13/25 04:30 LDL Cholesterol, Calc 3 mg/dL (0-100) 09/13/25 04:30 HDL Cholesterol 26 mg/dL (40-60) L 09/13/25 04:30 Cholesterol/HDL Ratio 1.9 (0.0-5.0) 09/13/25 04:30 Amylase 215 Units/L (25-115) H 09/12/25 09:57 Lipase 26 Units/L (16-77) 09/12/25 09:57 Specimen Type Clean catch urine 09/20/25 13:45 Urine Color Yellow (YELLOW) 09/20/25 13:45 Urine Appearance Clear (CLEAR) 09/20/25 13:45 Urine pH 8.0 (5.0 - 8.0) 09/20/25 13:45 Ur Specific Range 1.010 (1.000-1.030) 09/20/25 13:45 Urine Protein 1+ (NEGATIVE) 09/20/25 13:45 Urine Glucose (UA) Negative (NEGATIVE) 09/20/25 13:45 Urine Ketones Negative (NEGATIVE) 09/20/25 13:45 Urine Blood Negative (NEGATIVE) 09/20/25 13:45 Urine Nitrite Negative (NEGATIVE) 09/20/25 13:45 Urine Bilirubin Negative (NEGATIVE) 09/20/25 13:45 Urine Urobilinogen Normal (NORMAL) 09/20/25 13:45 Ur Leukocyte Esterase Negative (NEGATIVE) 09/20/25 13:45 Urine RBC None seen /HPF (0-3) 09/20/25 13:45 Urine WBC None seen /HPF (0-5) 09/20/25 13:45 Ur Squamous Epith Cells Rare /HPF (NEGATIVE) 09/20/25 13:45 Amorphous Sediment Trace /HPF (NEGATIVE) 09/12/25 11:19 Urine Bacteria Negative /HPF (NEGATIVE) 09/20/25 13:45 Ur Culture Indicated? Yes/culture set up 09/20/25 13:45 Stl C. diff Tox B Gene Negative (NEGATIVE) 09/22/25 16:45 Stl C. diff [id number] Presumptive negative (NEGATIVE) 09/22/25 16:45 Random Vancomycin 6.0 ug/mL 09/13/25 08:23 Cryptosporid parvum Ag Negative (NEGATIVE) 09/22/25 16:45 Giardia lamblia Ag Negative (NEGATIVE) 09/22/25 16:45 Resp Viral Panel (PCR) See scanned report 09/18/25 14:47 Infect Dis PCR Plus Cancelled 09/22/25 16:45 Tissue Pathology See comment. 09/12/25 16:00 Blood Type O POSITIVE 09/12/25 14:49 Antibody Screen Negative 09/12/25 14:49 Assessment and Plan 1: Slow recovering from septic shock. To continue same treatment plan, DVT prophylaxis and IV antibiotics awaiting culture report from the incision. Problem Patient Problems: Patient Problems Tachycardia (Acute) R00.0 Hypotension (Acute) I95.9 Sepsis (Acute) A41.9 Perforated small intestine (Acute) K63.1
[2025-09-23] MEDS: MICONAZOLE 7 CRM TOP SCH (21:03)
--- NOTE | 2025-09-24 07:18 | RAD ---
EXAM: CHEST, PA/LAT ADULT HISTORY: PNA; COMPARISON: 09/21/2025 FINDINGS: The trachea is midline. The cardiac silhouette is unremarkable. Blunting of the left costophrenic angle consistent with small pleural effusion is observed. The right hemithorax demonstrates a very small pleural as. The bony thorax is unremarkable. IMPRESSION: Bilateral small pleural effusions [id number]. THIS IS AN ELECTRONICALLY VERIFIED FINAL REPORT 09/24/2025 7:14 AM - Electronically signed by River Mora MD
[2025-09-24 08:23] LABS: COR CA(FOR HYPOALB) 10.0 mg/dL (8.5-10.1); CREATININE 0.60 mg/dL (0.55-1.02); eGFR NON BLACK RACES > 60 (>60)
[2025-09-24 08:25] LABS: MEAN PLATELET VOLUME 7.7 fL (7.4-11.0); RED CELL DISTRIBUTION WIDTH 16.0 % (11.6-16.5)
[2025-09-24 08:43] LABS: PLATELET MORPHOLOGY COMMENT NORMAL (NORMAL)
--- NOTE | 2025-09-24 13:24 | NOTE.SOAP ---
Soap Note Note for Day of Date of Exam: 09/24/25 Subjective Data Subjective Data: Patient with prolonged course in the hospital secondary to sepsis due to bowel perforation. Denies new complaints today. Reports that she feels she is about 50% back to normal. Plans are ongoing for discharge to home versus subacute rehab with need for IV antibiotics. Objective Data Objective Data: Well-developed, well-nourished female in no acute distress. Resting calmly in her bedside chair. Head NCAT with hearing grossly normal. Heart regular rate and rhythm with lungs clear. Belly is soft and nontender with colostomy present. Bowel sounds present. Mood and affect are appropriate. Assessment Assessment: Bacteremia with septic shock secondary to bowel perforation, resolved and now with a colostomy. Hospital-associated pneumonia. Benign essential HTN. Protein calorie malnutrition. Plan Plan: Continue current. Monitor labs, especially WBCs and platelets.
[2025-09-25 06:45] LABS: MEAN PLATELET VOLUME 7.6 fL (7.4-11.0); RED CELL DISTRIBUTION WIDTH 16.0 % (11.6-16.5)
[2025-09-25 07:03] LABS: COR CA(FOR HYPOALB) 9.8 mg/dL (8.5-10.1); CREATININE 0.68 mg/dL (0.55-1.02); eGFR NON BLACK RACES > 60 (>60)
--- NOTE | 2025-09-25 13:10 | NOTE.SOAP ---
Soap Note Note for Day of Date of Exam: 09/25/25 Subjective Data Subjective Data: WBCs down to 18,000 this morning. Does report continued, slow improvement. No acute events overnight. Objective Data Objective Data: Well-developed, well-nourished female in no acute stress. Hearing intact conversation, head NCAT. Heart regular rate and rhythm, lungs clear. Speech is unlabored. Belly is soft with bowel sounds present. Assessment Assessment: Bacteremia secondary to bowel perforation with colostomy placement. Anemia due to acute illness Thrombocytosis Leukocytosis Plan Plan: Continue current.
[2025-09-26 06:05] LABS: MEAN PLATELET VOLUME 7.0 fL (7.4-11.0); RED CELL DISTRIBUTION WIDTH 16.1 % (11.6-16.5)
[2025-09-26 06:20] LABS: COR CA(FOR HYPOALB) 10.1 mg/dL (8.5-10.1); CREATININE 0.54 mg/dL (0.55-1.02); eGFR NON BLACK RACES > 60 (>60)
[2025-09-26] MEDS ORDERED: CONSULT PHARMACY - POTASSIUM & MAGNESIUM XX SCH (07:00)
[2025-09-26] MEDS: K-DUR TAB 20 MEQ PO SCH (09:28)
[2025-09-26] MEDS: MAG-OX TAB PO SCH (09:28)
--- NOTE | 2025-09-26 10:04 | RAD ---
EXAM: Portable chest HISTORY: Pneumonia, pleural effusion COMPARISON: 09/24/2025, CTA chest 2024 FINDINGS: There is a right IJ line with its tip in the expected position of the superior vena cava. Heart size is normal. Kari are normal. Right lung is clear. Previously present right pleural effusion not identified. Left upper lung field is clear. There is a slight decrease in the small left pleural effusion being followed. Left lower lobe appears clear. Bony thorax is unremarkable. IMPRESSION: Resolved right pleural effusion, decreasing left pleural effusion Lung love appear clear. Previously present left lower lobe infiltrate not definitely identified THIS IS AN ELECTRONICALLY VERIFIED FINAL REPORT 09/26/2025 10:01 AM - Electronically signed by Frank Ngo MD
[2025-09-26] MEDS: NS 100 ML IV 100 ML ONE (10:59)
--- NOTE | 2025-09-26 12:41 | DR.PROGNOT ---
HOSPITAL PROGRESS NOTE Progress Note for Day of: Progress Note Date: 09/26/25 Chief Complaint Chief Complaint: Patient is feeling better today, more alert and comfortable, appetite still poor, minimal drainage on the dressing and colostomy is functioning well. WBC is down to 16.2 with shift to the left, hemoglobin 8.1, platelet count is up to 800,000, electrolytes are normal as well as BUN/creatinine, liver function tests are normal with a slight elevated alkaline phosphatase, chest x-ray showed resolved right pleural effusion with less left pleural effusion. Patient is alert, afebrile, normal neurological evaluation. Lung is clear. Heart regular rhythm with only mild tachycardia. Abdomen is soft and flat with good bowel sounds, most of the erythema of the incision had subsided but will keep the vira in place. Colostomy is functioning well. Past Medical Family Social History Allergies: Allergies amoxicillin Adverse Reaction (Severe, Verified 09/12/25 09:51) ANAPHALEXIS REACTION Penicillins Adverse Reaction (Severe, Verified 09/12/25 09:51) ANAPHALEXIS REACTION codeine Adverse Reaction (Mild, Verified 09/12/25 09:51) RASH Review Of Systems Changes in ROS: see HPI Vital Signs Vital Signs: Vital Signs Temperature 97.8 F Pulse Rate [Right Brachial] 93 Pulse Rate 112 Pulse Rate 85 Respiratory Rate 20 Respiratory Rate 17 Respiratory Rate 18 Blood Pressure [Right Arm] 127/62 O2 Sat by Pulse Oximetry 97 O2 Sat by Pulse Oximetry 97 O2 Sat by Pulse Oximetry 98 Physical Exam Oriented: Normal (was confused last night) Eyes: Normal Ear: Normal Nose: Normal Throat: Normal Respiratory: Normal Cardiovascular: Normal GI:Auscultation: Decreased GI:Palpation: Other (Diffuse tenderness with hypoactive bowel sounds) GI: Tenderness: Diffuse (Abdomen is soft with diffuse tenderness) Speech Pattern: Clear and Appropriate Laboratory and Diagnostics 09/26/25 05:48 09/26/25 05:48 Labs: 09/22/25 10:22 Abdomen Wound Gram Stain - Final 09/22/25 10:22 Abdomen Wound Culture - Final 09/22/25 16:45 Stool Stool Culture - Final 09/22/25 16:45 Stool - Final 09/18/25 09:17 Blood Blood Culture - Final 09/18/25 09:10 Blood Blood Culture - Final 09/20/25 13:45 Urine,Clean Catch Urine Culture - Final 09/13/25 08:09 Sputum - Endotracheal Wash Sputum Culture - Final Klebsiella Rhinoscleromatis 09/13/25 08:09 Sputum - Endotracheal Wash - Final 09/12/25 15:46 Peritoneal Fluid Wound Gram Stain - Final 09/12/25 15:46 Peritoneal Fluid Wound Culture - Final Escherichia Coli 09/12/25 15:28 Peritoneal Fluid Wound Gram Stain - Final 09/12/25 15:28 Peritoneal Fluid Wound Culture - Final Escherichia Coli 09/12/25 11:19 Urine,Catheterized Urine Culture - Final 09/12/25 10:30 Blood Blood Culture Gram Stain - Final 09/12/25 10:30 Blood Blood Culture - Final Escherichia Coli 09/12/25 09:57 Blood Blood Culture Gram Stain - Final 09/12/25 09:57 Blood Blood Culture - Final Escherichia Coli Laboratory WBC 16.2 X10^3/uL (3.6-10.0) H 09/26/25 05:48 RBC 3.02 X10^6/uL (3.5-5.4) L 09/26/25 05:48 Hgb 8.1 g/dL (12.0-16.0) L 09/26/25 05:48 Hct 23.9 % (36.0-47.0) L 09/26/25 05:48 MCV 79.2 fL (80.0-100.0) L 09/26/25 05:48 MCH 26.7 pg (27.0-34.0) L 09/26/25 05:48 MCHC 33.7 g/dL (33.0-35.0) 09/26/25 05:48 RDW 16.1 % (11.6-16.5) 09/26/25 05:48 Plt Count 816 X10^3/uL (150.0-450.0) H 09/26/25 05:48 Plt Count Comment Increased (ADEQUATE) A 09/24/25 07:52 MPV 7.0 fL (7.4-11.0) L 09/26/25 05:48 Neut % (Auto) 83.4 % (42.0-75.0) H 09/26/25 05:48 Lymph % (Auto) 6.8 % (21.0-51.0) L 09/26/25 05:48 [place] % (Auto) 8.7 % (0.0-13.0) 09/26/25 05:48 Eos % (Auto) 0.4 % (0.9-2.9) L 09/26/25 05:48 Baso % (Auto) 0.7 % (0.2-1.0) 09/26/25 05:48 Neut # (Auto) 13.5 x10^3/uL (2.2-4.8) H 09/26/25 05:48 Lymph # (Auto) 1.1 X10^3/uL (1.3-2.9) L 09/26/25 05:48 [place] # (Auto) 1.4 x10^3/uL (0.3-0.8) H 09/26/25 05:48 Eos # (Auto) 0.1 x10^3/uL (0.0-0.2) 09/26/25 05:48 Baso # (Auto) 0.1 X10^3/uL (0.0-0.1) 09/26/25 05:48 Absolute Nucleated RBC 0.0 /100WBC 09/26/25 05:48 Total Counted 100 09/24/25 07:52 Neutrophils % (Manual) 88 % (39-76) H 09/24/25 07:52 Band Neutrophils % 1 % (0-10) 09/23/25 05:07 Lymphocytes % (Manual) 8 % (13-43) L 09/24/25 07:52 Monocytes % (Manual) 4 % (4-9) 09/24/25 07:52 Eosinophils % (Manual) 1 % (0-6) 09/23/25 05:07 Metamyelocytes % 2 09/15/25 04:02 Myelocytes % 2 09/15/25 04:02 Plt Morphology Comment Normal (NORMAL) 09/24/25 07:52 RBC Morphology Abnormal (NORMAL) A 09/24/25 07:52 Hypochromasia Slight A 09/21/25 05:11 Anisocytosis Slight A 09/22/25 05:14 Microcytosis Slight A 09/24/25 07:52 Target Cells Slight A 09/23/25 05:07 ESR 107 MM/HOUR (0-20) H 09/23/25 05:07 PT 12.8 SECONDS (11.8-14.3) 09/16/25 04:18 INR Target Range - 09/16/25 04:18 INR 0.95 (0.8-1.3) 09/16/25 04:18 APTT 27.1 SECONDS (22.9-36.5) 09/12/25 09:57 PTT Comment - 09/12/25 09:57 Sample Site Rbra 09/21/25 09:10 ABG pH 7.490 (7.35-7.45) H 09/21/25 09:10 ABG pCO2 34.0 mmHg (35.0-45.0) L 09/21/25 09:10 ABG pO2 59.0 mmHg (80.0-100.0) L 09/21/25 09:10 ABG HCO3 25.9 mmol/L (22-26) 09/21/25 09:10 ABG O2 Saturation 92.0 % (90-100) 09/21/25 09:10 ABG Base Excess 2.8 mmol/L (-2.0-2.0) H 09/21/25 09:10 Kevin Test N/a 09/21/25 09:10 A-a Gradient 48.0 mmHg 09/21/25 09:10 FiO2 21.0 09/21/25 09:10 Blood Gas Comments Pt adolph well elj 09/21/25 09:10 Sodium 140 mmol/L (136-145) 09/26/25 05:48 Corrected Sodium TNP 09/26/25 05:48 Potassium 3.8 mmol/L (3.5-5.1) 09/26/25 05:48 Chloride 102 mmol/L (98-107) 09/26/25 05:48 Carbon Dioxide 29.8 mmol/L (21-32) 09/26/25 05:48 BUN 7 mg/dL (7-18) 09/26/25 05:48 Creatinine 0.54 mg/dL (0.55-1.02) L 09/26/25 05:48 Est GFR (MDRD) Af Amer > 60 (>60) 09/26/25 05:48 Est GFR (MDRD) Non-Af > 60 (>60) 09/26/25 05:48 Glucose 91 mg/dL (65-99) 09/26/25 05:48 POC Glucose (mg/dL) 99 mg/dL (65-99) 09/26/25 10:59 Lactic Acid 1.2 mmol/L (0.4-2.0) 09/18/25 09:10 Calcium 8.6 mg/dL (8.5-10.1) 09/26/25 05:48 Corrected Calcium 10.1 mg/dL (8.5-10.1) 09/26/25 05:48 Phosphorus 1.1 mg/dL (2.6-4.7) L 09/21/25 05:11 Magnesium 1.8 mg/dL (2.0-2.9) L 09/26/25 05:48 Total Bilirubin 0.40 mg/dL (0.2-1.0) 09/26/25 05:48 AST 28 Units/L (15-37) 09/26/25 05:48 ALT 27 Units/L (12-78) 09/26/25 05:48 Alkaline Phosphatase 136 Units/L (46-116) H 09/26/25 05:48 Troponin I High Sens 33.8 ng/L (4.0-60.0) 09/12/25 11:55 C-Reactive Protein 146.50 mg/L (0-3.0) H 09/20/25 04:40 B-Natriuretic Peptide 52.0 pg/mL (0-79) 09/20/25 04:40 Total Protein 6.5 g/dL (6.4-8.2) 09/26/25 05:48 Albumin 2.1 g/dL (3.4-5.0) L 09/26/25 05:48 Globulin 4.4 g/dL (2.5-4.5) 09/26/25 05:48 Albumin/Globulin Ratio 0.5 Ratio (1.1-2.1) L 09/26/25 05:48 Prealbumin 10.5 mg/dL (18-35.7) L 09/19/25 04:37 Triglycerides 102 mg/dL (0-150) 09/21/25 05:11 Cholesterol < 50 mg/dL (0-200) 09/13/25 04:30 LDL Cholesterol, Calc 3 mg/dL (0-100) 09/13/25 04:30 HDL Cholesterol 26 mg/dL (40-60) L 09/13/25 04:30 Cholesterol/HDL Ratio 1.9 (0.0-5.0) 09/13/25 04:30 Amylase 215 Units/L (25-115) H 09/12/25 09:57 Lipase 26 Units/L (16-77) 09/12/25 09:57 Specimen Type Clean catch urine 09/20/25 13:45 Urine Color Yellow (YELLOW) 09/20/25 13:45 Urine Appearance Clear (CLEAR) 09/20/25 13:45 Urine pH 8.0 (5.0 - 8.0) 09/20/25 13:45 Ur Specific [place] 1.010 (1.000-1.030) 09/20/25 13:45 Urine Protein 1+ (NEGATIVE) 09/20/25 13:45 Urine Glucose (UA) Negative (NEGATIVE) 09/20/25 13:45 Urine Ketones Negative (NEGATIVE) 09/20/25 13:45 Urine Blood Negative (NEGATIVE) 09/20/25 13:45 Urine Nitrite Negative (NEGATIVE) 09/20/25 13:45 Urine Bilirubin Negative (NEGATIVE) 09/20/25 13:45 Urine Urobilinogen Normal (NORMAL) 09/20/25 13:45 Ur Leukocyte Esterase Negative (NEGATIVE) 09/20/25 13:45 Urine RBC None seen /HPF (0-3) 09/20/25 13:45 Urine WBC None seen /HPF (0-5) 09/20/25 13:45 Ur Squamous Epith Cells Rare /HPF (NEGATIVE) 09/20/25 13:45 Amorphous Sediment Trace /HPF (NEGATIVE) 09/12/25 11:19 Urine Bacteria Negative /HPF (NEGATIVE) 09/20/25 13:45 Ur Culture Indicated? Yes/culture set up 09/20/25 13:45 Stl C. diff Tox B Gene Negative (NEGATIVE) 09/22/25 16:45 Stl C. diff [id number] Presumptive negative (NEGATIVE) 09/22/25 16:45 Random Vancomycin 6.0 ug/mL 09/13/25 08:23 Cryptosporid parvum Ag Negative (NEGATIVE) 09/22/25 16:45 Giardia lamblia Ag Negative (NEGATIVE) 09/22/25 16:45 Resp Viral Panel (PCR) See scanned report 09/18/25 14:47 GI Pathogen (PCR) See scanned report 09/22/25 16:45 Infect Dis PCR Plus Cancelled 09/22/25 16:45 Tissue Pathology See comment. 09/12/25 16:00 Blood Type O POSITIVE 09/12/25 14:49 Antibody Screen Negative 09/12/25 14:49 Assessment and Plan 1: Slow recovering from septic shock. To continue same treatment plan, DVT prophylaxis and IV antibiotics awaiting culture report from the incision. Continue nutritional support and place patient on the swing bed if approved. Problem Patient Problems: Patient Problems Tachycardia (Acute) R00.0 Hypotension (Acute) I95.9 Sepsis (Acute) A41.9 Perforated small intestine (Acute) K63.1
[2025-09-27 05:57] LABS: MEAN PLATELET VOLUME 7.2 fL (7.4-11.0); RED CELL DISTRIBUTION WIDTH 15.9 % (11.6-16.5)
[2025-09-27 06:01] LABS: COR CA(FOR HYPOALB) 10.2 mg/dL (8.5-10.1); CREATININE 0.65 mg/dL (0.55-1.02); eGFR NON BLACK RACES > 60 (>60)
--- NOTE | 2025-09-27 08:51 | DR.PROGNOT ---
HOSPITAL PROGRESS NOTE Progress Note for Day of: Progress Note Date: 09/27/25 Chief Complaint Chief Complaint: Patient seems to be stable with no new complaint, her colostomy is functioning well, wound infection has subsided, no active drainage. Still having poor appetite. No more confusion or agitation. WBC still elevated up to 16.5, hemoglobin 8.7, platelet count is high 911,000, electrolytes, BUN, creatinine and liver function tests are normal. Patient is afebrile, alert and cooperative. Abdomen is soft and flat, nontender with good bowel sounds. No calf tenderness. Past Medical Family Social History Allergies: Allergies amoxicillin Adverse Reaction (Severe, Verified 09/12/25 09:51) ANAPHALEXIS REACTION Penicillins Adverse Reaction (Severe, Verified 09/12/25 09:51) ANAPHALEXIS REACTION codeine Adverse Reaction (Mild, Verified 09/12/25 09:51) RASH Review Of Systems Changes in ROS: see HPI Vital Signs Vital Signs: Vital Signs Temperature 99.2 F Pulse Rate [Right Brachial] 102 Respiratory Rate 16 Blood Pressure [Right Arm] 108/53 O2 Sat by Pulse Oximetry 98 Physical Exam Oriented: Normal (was confused last night) Eyes: Normal Ear: Normal Nose: Normal Throat: Normal Respiratory: Normal Cardiovascular: Normal GI:Auscultation: Decreased GI: Tenderness: Diffuse (Abdomen is soft with diffuse tenderness) Speech Pattern: Clear and Appropriate Laboratory and Diagnostics 09/27/25 05:18 09/27/25 05:18 Labs: 09/22/25 10:22 Abdomen Wound Gram Stain - Final 09/22/25 10:22 Abdomen Wound Culture - Final 09/22/25 16:45 Stool Stool Culture - Final 09/22/25 16:45 Stool - Final 09/18/25 09:17 Blood Blood Culture - Final 09/18/25 09:10 Blood Blood Culture - Final 09/20/25 13:45 Urine,Clean Catch Urine Culture - Final 09/13/25 08:09 Sputum - Endotracheal Wash Sputum Culture - Final Klebsiella Rhinoscleromatis 09/13/25 08:09 Sputum - Endotracheal Wash - Final 09/12/25 15:46 Peritoneal Fluid Wound Gram Stain - Final 09/12/25 15:46 Peritoneal Fluid Wound Culture - Final Escherichia Coli 09/12/25 15:28 Peritoneal Fluid Wound Gram Stain - Final 09/12/25 15:28 Peritoneal Fluid Wound Culture - Final Escherichia Coli 09/12/25 11:19 Urine,Catheterized Urine Culture - Final 09/12/25 10:30 Blood Blood Culture Gram Stain - Final 09/12/25 10:30 Blood Blood Culture - Final Escherichia Coli 09/12/25 09:57 Blood Blood Culture Gram Stain - Final 09/12/25 09:57 Blood Blood Culture - Final Escherichia Coli Laboratory WBC 16.5 X10^3/uL (3.6-10.0) H 09/27/25 05:18 RBC 3.29 X10^6/uL (3.5-5.4) L 09/27/25 05:18 Hgb 8.7 g/dL (12.0-16.0) L 09/27/25 05:18 Hct 26.3 % (36.0-47.0) L 09/27/25 05:18 MCV 80.2 fL (80.0-100.0) 09/27/25 05:18 MCH 26.3 pg (27.0-34.0) L 09/27/25 05:18 MCHC 32.9 g/dL (33.0-35.0) L 09/27/25 05:18 RDW 15.9 % (11.6-16.5) 09/27/25 05:18 Plt Count 911 X10^3/uL (150.0-450.0) H 09/27/25 05:18 Plt Count Comment Increased (ADEQUATE) A 09/24/25 07:52 MPV 7.2 fL (7.4-11.0) L 09/27/25 05:18 Neut % (Auto) 85.8 % (42.0-75.0) H 09/27/25 05:18 Lymph % (Auto) 6.2 % (21.0-51.0) L 09/27/25 05:18 [place] % (Auto) 7.2 % (0.0-13.0) 09/27/25 05:18 Eos % (Auto) 0.3 % (0.9-2.9) L 09/27/25 05:18 Baso % (Auto) 0.5 % (0.2-1.0) 09/27/25 05:18 Neut # (Auto) 14.2 x10^3/uL (2.2-4.8) H 09/27/25 05:18 Lymph # (Auto) 1.0 X10^3/uL (1.3-2.9) L 09/27/25 05:18 [place] # (Auto) 1.2 x10^3/uL (0.3-0.8) H 09/27/25 05:18 Eos # (Auto) 0.1 x10^3/uL (0.0-0.2) 09/27/25 05:18 Baso # (Auto) 0.1 X10^3/uL (0.0-0.1) 09/27/25 05:18 Absolute Nucleated RBC 0.1 /100WBC 09/27/25 05:18 Total Counted 100 09/24/25 07:52 Neutrophils % (Manual) 88 % (39-76) H 09/24/25 07:52 Band Neutrophils % 1 % (0-10) 09/23/25 05:07 Lymphocytes % (Manual) 8 % (13-43) L 09/24/25 07:52 Monocytes % (Manual) 4 % (4-9) 09/24/25 07:52 Eosinophils % (Manual) 1 % (0-6) 09/23/25 05:07 Metamyelocytes % 2 09/15/25 04:02 Myelocytes % 2 09/15/25 04:02 Plt Morphology Comment Normal (NORMAL) 09/24/25 07:52 RBC Morphology Abnormal (NORMAL) A 09/24/25 07:52 Hypochromasia Slight A 09/21/25 05:11 Anisocytosis Slight A 09/22/25 05:14 Microcytosis Slight A 09/24/25 07:52 Target Cells Slight A 09/23/25 05:07 ESR 107 MM/HOUR (0-20) H 09/23/25 05:07 PT 12.8 SECONDS (11.8-14.3) 09/16/25 04:18 INR Target Range - 09/16/25 04:18 INR 0.95 (0.8-1.3) 09/16/25 04:18 APTT 27.1 SECONDS (22.9-36.5) 09/12/25 09:57 PTT Comment - 09/12/25 09:57 Sample Site Rbra 09/21/25 09:10 ABG pH 7.490 (7.35-7.45) H 09/21/25 09:10 ABG pCO2 34.0 mmHg (35.0-45.0) L 09/21/25 09:10 ABG pO2 59.0 mmHg (80.0-100.0) L 09/21/25 09:10 ABG HCO3 25.9 mmol/L (22-26) 09/21/25 09:10 ABG O2 Saturation 92.0 % (90-100) 09/21/25 09:10 ABG Base Excess 2.8 mmol/L (-2.0-2.0) H 09/21/25 09:10 Kevin Test N/a 09/21/25 09:10 A-a Gradient 48.0 mmHg 09/21/25 09:10 FiO2 21.0 09/21/25 09:10 Blood Gas Comments Pt adolph well elj 09/21/25 09:10 Sodium 140 mmol/L (136-145) 09/27/25 05:18 Corrected Sodium TNP 09/27/25 05:18 Potassium 3.9 mmol/L (3.5-5.1) 09/27/25 05:18 Chloride 102 mmol/L (98-107) 09/27/25 05:18 Carbon Dioxide 27.7 mmol/L (21-32) 09/27/25 05:18 BUN 5 mg/dL (7-18) L 09/27/25 05:18 Creatinine 0.65 mg/dL (0.55-1.02) 09/27/25 05:18 Est GFR (MDRD) Af Amer > 60 (>60) 09/27/25 05:18 Est GFR (MDRD) Non-Af > 60 (>60) 09/27/25 05:18 Glucose 104 mg/dL (65-99) H 09/27/25 05:18 POC Glucose (mg/dL) 102 mg/dL (65-99) H 09/27/25 05:32 Lactic Acid 1.2 mmol/L (0.4-2.0) 09/18/25 09:10 Calcium 8.8 mg/dL (8.5-10.1) 09/27/25 05:18 Corrected Calcium 10.2 mg/dL (8.5-10.1) H 09/27/25 05:18 Phosphorus 1.1 mg/dL (2.6-4.7) L 09/21/25 05:11 Magnesium 2.0 mg/dL (2.0-2.9) 09/27/25 05:18 Total Bilirubin 0.30 mg/dL (0.2-1.0) 09/27/25 05:18 AST 33 Units/L (15-37) 09/27/25 05:18 ALT 32 Units/L (12-78) 09/27/25 05:18 Alkaline Phosphatase 142 Units/L (46-116) H 09/27/25 05:18 Troponin I High Sens 33.8 ng/L (4.0-60.0) 09/12/25 11:55 C-Reactive Protein 146.50 mg/L (0-3.0) H 09/20/25 04:40 B-Natriuretic Peptide 52.0 pg/mL (0-79) 09/20/25 04:40 Total Protein 7.0 g/dL (6.4-8.2) 09/27/25 05:18 Albumin 2.2 g/dL (3.4-5.0) L 09/27/25 05:18 Globulin 4.8 g/dL (2.5-4.5) H 09/27/25 05:18 Albumin/Globulin Ratio 0.5 Ratio (1.1-2.1) L 09/27/25 05:18 Prealbumin 10.5 mg/dL (18-35.7) L 09/19/25 04:37 Triglycerides 102 mg/dL (0-150) 09/21/25 05:11 Cholesterol < 50 mg/dL (0-200) 09/13/25 04:30 LDL Cholesterol, Calc 3 mg/dL (0-100) 09/13/25 04:30 HDL Cholesterol 26 mg/dL (40-60) L 09/13/25 04:30 Cholesterol/HDL Ratio 1.9 (0.0-5.0) 09/13/25 04:30 Amylase 215 Units/L (25-115) H 09/12/25 09:57 Lipase 26 Units/L (16-77) 09/12/25 09:57 Specimen Type Clean catch urine 09/20/25 13:45 Urine Color Yellow (YELLOW) 09/20/25 13:45 Urine Appearance Clear (CLEAR) 09/20/25 13:45 Urine pH 8.0 (5.0 - 8.0) 09/20/25 13:45 Ur Specific [place] 1.010 (1.000-1.030) 09/20/25 13:45 Urine Protein 1+ (NEGATIVE) 09/20/25 13:45 Urine Glucose (UA) Negative (NEGATIVE) 09/20/25 13:45 Urine Ketones Negative (NEGATIVE) 09/20/25 13:45 Urine Blood Negative (NEGATIVE) 09/20/25 13:45 Urine Nitrite Negative (NEGATIVE) 09/20/25 13:45 Urine Bilirubin Negative (NEGATIVE) 09/20/25 13:45 Urine Urobilinogen Normal (NORMAL) 09/20/25 13:45 Ur Leukocyte Esterase Negative (NEGATIVE) 09/20/25 13:45 Urine RBC None seen /HPF (0-3) 09/20/25 13:45 Urine WBC None seen /HPF (0-5) 09/20/25 13:45 Ur Squamous Epith Cells Rare /HPF (NEGATIVE) 09/20/25 13:45 Amorphous Sediment Trace /HPF (NEGATIVE) 09/12/25 11:19 Urine Bacteria Negative /HPF (NEGATIVE) 09/20/25 13:45 Ur Culture Indicated? Yes/culture set up 09/20/25 13:45 Stl C. diff Tox B Gene Negative (NEGATIVE) 09/22/25 16:45 Stl C. diff [id number] Presumptive negative (NEGATIVE) 09/22/25 16:45 Random Vancomycin 6.0 ug/mL 09/13/25 08:23 Cryptosporid parvum Ag Negative (NEGATIVE) 09/22/25 16:45 Giardia lamblia Ag Negative (NEGATIVE) 09/22/25 16:45 Resp Viral Panel (PCR) See scanned report 09/18/25 14:47 GI Pathogen (PCR) See scanned report 09/22/25 16:45 Infect Dis PCR Plus Cancelled 09/22/25 16:45 Tissue Pathology See comment. 09/12/25 16:00 Blood Type O POSITIVE 09/12/25 14:49 Antibody Screen Negative 09/12/25 14:49 Assessment and Plan 1: Slow recovering from septic shock. To continue same treatment plan, DVT prophylaxis and IV antibiotics awaiting culture report from the incision. Continue nutritional support and postoperative care. 2: Thrombocytosis related to post sepsis complications. On Lovenox daily, will add baby aspirin. Problem Patient Problems: Patient Problems Tachycardia (Acute) R00.0 Hypotension (Acute) I95.9 Sepsis (Acute) A41.9 Perforated small intestine (Acute) K63.1
[2025-09-27] MEDS: ASPIRIN EC 81 MG PO SCH (09:25)
[2025-09-28 06:03] LABS: MEAN PLATELET VOLUME 6.9 fL (7.4-11.0); RED CELL DISTRIBUTION WIDTH 16.1 % (11.6-16.5)
[2025-09-28 06:21] LABS: COR CA(FOR HYPOALB) 10.2 mg/dL (8.5-10.1); CREATININE 0.68 mg/dL (0.55-1.02); eGFR NON BLACK RACES > 60 (>60)
[2025-09-28] MEDS ORDERED: CONSULT PHARMACY - POTASSIUM & MAGNESIUM XX SCH (07:00)
[2025-09-28 07:11] VITALS: RESP 18
[2025-09-28] MEDS: K-DUR TAB 20 MEQ PO SCH (09:12)
[2025-09-28 13:51] VITALS: BP 116/57; PULSE 94; TEMP 98.6; O2SAT 95
== END 2025-09-28 13:05 | disposition home health service (06) | DRG 853 ==
LOC: U 09:32 → MED/SURG 09:32 → ER 09:32 → OBSVTOIN 11:30 → U 11:31 → MED/SURG 09-16 13:32
PROVIDERS: ADMIT Surgery; ATTEND Surgery
DX: J90 Pleural effusion, not elsewhere classified; J34.1 Cyst and mucocele of nose and nasal sinus; Z16.23 Resistance to quinolones and fluoroquinolones; D75.838 Other thrombocytosis; N17.8 Other acute kidney failure; D72.828 Other elevated white blood cell count; K27.9 Peptic ulcer, site unspecified, unspecified as acute or chronic, without hemorrhage or perforation; R07.89 Other chest pain; E16.1 Other hypoglycemia; B96.89 Other specified bacterial agents as the cause of diseases classified elsewhere; R53.1 Weakness; A41.51 Sepsis due to Escherichia coli [E. coli]; I10 Essential (primary) hypertension; R06.09 Other forms of dyspnea; E83.42 Hypomagnesemia; I95.89 Other hypotension; R70.0 Elevated erythrocyte sedimentation rate; K57.30 Diverticulosis of large intestine without perforation or abscess without bleeding; J95.89 Other postprocedural complications and disorders of respiratory system, not elsewhere classified; R41.0 Disorientation, unspecified; R10.84 Generalized abdominal pain; Z16.29 Resistance to other single specified antibiotic; Z16.11 Resistance to penicillins; M19.90 Unspecified osteoarthritis, unspecified site; F41.8 Other specified anxiety disorders; F32.89 Other specified depressive episodes; J15.69 Pneumonia due to other Gram-negative bacteria; B96.29 Other Escherichia coli [E. coli] as the cause of diseases classified elsewhere; R65.21 Severe sepsis with septic shock; R06.02 Shortness of breath; E87.6 Hypokalemia; K21.9 Gastro-esophageal reflux disease without esophagitis; E87.3 Alkalosis; R79.89 Other specified abnormal findings of blood chemistry; K60.0 Acute anal fissure; K63.1 Perforation of intestine (nontraumatic); E86.0 Dehydration; R00.0 Tachycardia, unspecified